=== PATIENT | male | born 1970 | race Caucasian/White ===

== ENCOUNTER 2018-09-07 20:49 | Inpatient (IN) ==
[2018-09-07 22:33] LABS: BASO# 0.06 X1000 (0.0-0.2); BASO% 0.6 % (0.0-0.8); EOS# 0.14 X1000 (0.0-0.7); EOS% 1.5 % (0.0-10.0); HEMOGLOBIN 12.7 g/dL (14.0-18.0); IMM GRAN# 0.04 X1000 (0.0-0.04); IMM GRAN% 0.4 % (0.0-0.5); LYMPH# 1.41 X1000 (1.2-3.4); LYMPH% 14.7 % (20.5-51.1); MCH 34.2 PG (27-31); MCHC 35.3 g/dL (33-37); MONO# 1.35 X1000 (0.11-0.59); MPV 12.2 FL (7.4-10.4); NEUT# 6.61 X1000 (1.4-6.5); NEUT% 68.8 % (42.2-75.2); PLT 128 X1000 (130-400); RBC 3.71 XMIL (4.7-6.1); RDW 15.5 % (11.5-14.5); WBC 9.61 X1000 (4.8-10.8)
[2018-09-07] MEDS ORDERED: ZOFRAN IV ONE (22:45)
[2018-09-07] MEDS ORDERED: MORPHINE IV ONE (22:45)
[2018-09-07 22:51] LABS: AGAP 12; ALKALINE PHOSPHATASE 119 U/L (32-122); BUN 15 mg/dL (8-22); CALCIUM 8.3 mg/dL (8.8-10.2); CHLORIDE 99 mmol/L (98-107); COSMO 266; CREATININE 0.8 mg/dL (0.7-1.2); ESTIMATED GFR > 60; GLUCOSE 85 mg/dL (70-104); GOT 47 U/L (10-34); GPT 40 U/L (10-44); LIPASE 23 U/L (13-60); POTASSIUM 4.3 mmol/L (3.5-5.1); SODIUM 133 mmol/L (136-145); TCO2 22 mmol/L (25-35); TOTAL PROTEIN 6.8 g/dL (6.3-8.3)
--- NOTE | 2018-09-08 00:16 | PROVIDER DOCUMENTATION ---
This chart was entered by Eunice Arias Scribe, acting as scribe for Clinton Mccann MD. HPI-Abdominal Pain/GI Problem - General Chief Complaint: Abdominal Pain Stated Complaint: PAIN/SWELLING (R) ABDOMEN Time Seen by Provider: 09/07/18 22:27 Source: patient, family Allergies/Adverse Reactions: Patient Allergies Allergy/AdvReac Type Severity Reaction Status Date / Time No Known Allergies Allergy Verified 09/07/18 21:34 Home Medications: Home Medication List Medication Instructions Recorded Confirmed Last Taken Type Spironolactone 50 mg PO BID 09/07/18 09/07/18 Unknown History - History of Present Illness-ABD Nature of Presenting Problems: 48 yowm presents w/family to er w/cc abd pain mostly right sided, distention, nausea, urinary retention, poor appetite, and constipation x 2 days. pt sts pain 12/06. pt was tx at [facility] for similar symptoms, given rx spironolactone w/no relief. pt sts [place] [facility] [place] kidney [place] and family sts found out he was in liver failure w/no notification. pt has CT done on 09-05 at [facility] and was told he had liver failure. pt and family denies alcohol use. denies chf, and dm. has hx of hepatitis that is supposed to be kike red up, was tx in shelter, acc to pt. pt has no allergies. pt is a smoker. family sts when pt is able to urinate it is darker in color but sts no urination since . Abdominal Pain Onset Location: reports: RUQ Onset/Duration: reports: 2 days ago Timing: reports: still present Review of Systems - Adult - REVIEW OF SYSTEMS - ADULT Constitutional: reports: no symptoms reported Eyes: reports: no symptoms reported Ears, Nose, Mouth & Throat: reports: no symptoms reported Cardiovascular: reports: no symptoms reported Respiratory: reports: no symptoms reported Gastrointestinal: reports: see HPI, abdominal pain (ruq, distention), constipation, nausea, poor appetite. denies: hematemesis, difficulty swallow ing, rectal bleeding Genitourinary: reports: see HPI, urinary retention. denies: dysuria, discharge, frequency Musculoskeletal: reports: no symptoms reported Integumentary: reports: no symptoms reported Neurological: reports: no symptoms reported Psychiatric: reports: no symptoms reported Endocrine: reports: no symptoms reported Hematologic/Lymphatic: reports: no symptoms reported Allergic/Immunologic: reports: no symptoms reported All Other Systems: Reviewed and Negative Past History - Adult - PAST MEDICAL HISTORY-ADULT Review of Records: reports: Old Records Reviewed (FULL RECORD OF [facility] VISIT, LAB, CT FINDINGS PER DR ARAGON OF SEPTEMBER 05, 2018 REVIEWED.), Nursing Assessment Review, Medications Reviewed, Social history reviewed & non- contributory. Major Childhood Illnesses: reports: denies history Cardiovascular: reports: HTN Respiratory: reports: denies history Gastrointestinal: reports: hepatitis, other (cirrosis) Obstetrical/Gynecological: reports: denies history Genitourinary: reports: denies history Musculoskeletal: reports: denies history Neurological: reports: denies history Endocrine/Immune: reports: denies history Other Conditions: reports: denies history - IMMUNIZATION STATUS Childhood Immunizations: See Nurse Assessment Flu Vaccine: See Nurse Assessment - FAMILY HISTORY Family History: reviewed, not pertinent - SOCIAL HISTORY Smoking: cigarettes, greater than 1 pack/day Provider spent 3-5 mins advising pt. on dangers of tobacco.: Discussed manners t o quit use, and f/u contacts for add'l counseling. Substance Use: denies Physical Exam-General - PHYSICAL EXAM-ADULT Initial Vital Signs Reviewed: Yes - CONSTITUTIONAL General Appearance: alert, mild distress. negative: slow to respond, obtunded, combative - EYES Eyes: PERRL/EOMI, scleral icterus (minimal bilat). negative: EOM palsy, photophobia, subconjunctival hemorrhage - HEAD, EARS, NOSE, MOUTH & THROAT HENMT: normocephalic/atraumatic, moist mucous membranes, normal ENT inspection - NECK Neck: non-tender, full range of motion, supple, normal inspection - RESPIRATORY Respiratory: chest non-tender, lungs clear, normal breath sounds - CARDIOVASCULAR Cardiovascular: normal peripheral pulses, tachycardia (mild). negative: regular rate, rhythm, bradycardia, extra beats - GASTROINTESTINAL (ABDOMEN) Abdominal Exam: normal bowel sounds, no organomegaly, distended (minimal distention no guarding), tenderness (moderate rt sided abd to palp, not localized). negative: non tender, soft, guarding - LYMPHATIC Lymphatic: no adenopathy - MUSCULOSKELETAL Back Exam: normal inspection, no CVA tenderness, no vertebral tenderness Extremity: normal range of motion, non-tender, normal inspection Peripheral Pulses: radial (R): 2+, radial (L): 2+ - SKIN Integumentary: normal color, normal turgor, warm/dry - NEUROLOGIC Neurologic: grossly normal, no motor/sensory deficits - PSYCHIATRIC Psych/Mental Status: normal mood/affect, normal thought content, normal thought process, oriented x 3 Progress - PLAN OF CARE/RESULTS Progress/Plan/Lab Results: Vital Signs - 8 hr 09/07/18 21:29 Temperature 98.4 F Pulse Rate 92 H Respiratory Rate 20 Blood Pressure 125/84 O2 Sat by Pulse Oximetry 100 Laboratory Results - last 24 hr 09/07/18 22:17 WBC 9.61 RBC 3.71 L Hgb 12.7 L Hct 36.0 L MCV 97.0 MCH 34.2 H MCHC 35.3 RDW Std Deviation 15.5 H Plt Count 128 L MPV 12.2 H Immature Gran % (Auto) 0.4 Neut % (Auto) 68.8 Lymph % (Auto) 14.7 L Duval % (Auto) 14.0 H Eos % (Auto) 1.5 Baso % (Auto) 0.6 Immature Gran # (Auto) 0.04 Neut # (Auto) 6.61 H Lymph # (Auto) 1.41 Duval # (Auto) 1.35 H Eos # (Auto) 0.14 Baso # (Auto) 0.06 Orders Category Date Time Status Saline Loc NOW Care 09/07/18 21:41 Active NPO Diet 09/07/18 21:42 Active FLAT/UPRIGHT ABD/1 VIEW CHEST [RAD] Stat Exams 09/07/18 21:40 Ordered AMYLASE [CHEM] Stat Lab 09/07/18 22:17 Received CBC WITH DIFF [HEME] Stat Lab 09/07/18 22:17 Completed COMPREHENSIVE METABOLIC PANEL [CHEM] Stat Lab 09/07/18 22:37 Received LIPASE [CHEM] Stat Lab 09/07/18 22:[address] W/POSS RFLX CULT [URINALYSIS] Stat Lab 09/07/18 21:40 Uncollected URINE DRUG SCREEN PL Stat Lab 09/07/18 21:40 Uncollected Result Diagrams: 09/07/18 22:17 09/07/18 22:37 - CONSULTS/PCP/HOSPITALIST Notification #1 *Consult/PCP/Hospitalist*: Dr. partida Time Discussed: 23:40 Consult Disposition: Admit #2 Consult: Dr. braun Time Discussed: 23:30 Consult Disposition: Admit Departure - Departure Date of Disposition Decision: 09/08/18 Time of Disposition Decision: 00:12 DIAGNOSIS: Abdominal pain, Ascites, Cirrhosis of liver, Methamphetamine abuse Disposition: ADMITTED INPATIENT 09 Certified Medical Emergency: Emergent Condition: Stable Referrals and Follow-Ups: None,PCP [Primary Care Provider] - - Critical Care Note This patient required my direct & personal management of CC.: No Attestation - Physician/ DIANA Attestation Patient care was provided by Advanced Practice Provider:: No The physician spent face to face time with patient:: Yes Advanced Practice Provider documentation review:: Supervising physician onsite and consulted in the evaluation and care of this patient. The physician did have a face to face encounter with the patient. This chart was documented by the indicated scribe, (Eunice Arias Scribe) and accurately reflects the services I performed and decisions made by me, Clinton Mccann MD, as attested by the provider's signature.
[2018-09-08 01:27] LABS: BILIRUBIN URINE NEGATIVE (NEGATIVE); BLOOD URINE NEGATIVE (NEGATIVE); CLARITY CLEAR (CLEAR); COLOR AMBER; GLUCOSE URINE NEGATIVE (NEGATIVE); KETONE URINE TRACE mg/dL (NEGATIVE); LEUKOCYTES URINE TRACE (NEGATIVE); NITRITE URINE NEGATIVE (NEGATIVE); PROTEIN URINE TRACE mg/dL (NEGATIVE); UR AMPHETAMINES QUAL PRESUMPTIVE POSITIVE (NONE DETECT); UR BARBITUATES QUAL NONE DETECTED (NONE DETECT); UR BENZODIAZEPIN QUAL NONE DETECTED (NONE DETECT); UR CANNABINOIDS QUAL PRESUMPTIVE POSITIVE (NONE DETECT); UR COCAINE QUAL NONE DETECTED (NONE DETECT); UR METHADONE QUAL NONE DETECTED (NONE DETECT); UR METHAMPHETAMINE QUAL PRESUMPTIVE POSITIVE (NONE DETECT); UR OPIATES QUAL PRESUMPTIVE POSITIVE (NONE DETECT); UR OXYCODONE QUAL NONE DETECTED (NONE DETECT); UR PCP QUAL NONE DETECTED (NONE DETECT); UR PROPOXYPHENE QUAL NONE DETECTED (NONE DETECT); UR TCA QUAL NONE DETECTED (NONE DETECT); URINE BACTERIA NEGATIVE /HFP; URINE EPITHELIAL CELLS <10 /HPF (<10); URINE RBC <10 /HPF (<10); URINE SOURCE CLEAN CATCH; URINE WBC <10 /HPF (<10); UROBILINOGEN URINE 8 mg/dL
[2018-09-08] MEDS ORDERED: NS 1,000 ML IV ONE (02:50)
[2018-09-08] MEDS: ZOFRAN IV PRN ×4 (03:16→16:06)
[2018-09-08] MEDS: MORPHINE IV PRN ×6 (03:16→22:44)
[2018-09-08 08:09] LABS: BASO# 0.06 X1000 (0.0-0.2); BASO% 0.8 % (0.0-0.8); EOS# 0.16 X1000 (0.0-0.7); EOS% 2.1 % (0.0-10.0); HEMATOCRIT 37.4 % (42.0-52.0); HEMOGLOBIN 13.2 g/dL (14.0-18.0); IMM GRAN# 0.05 X1000 (0.0-0.04); IMM GRAN% 0.6 % (0.0-0.5); LYMPH# 1.57 X1000 (1.2-3.4); LYMPH% 20.2 % (20.5-51.1); MCH 34.6 PG (27-31); MCHC 35.3 g/dL (33-37); MCV 97.9 FL (81-99); MONO# 1.11 X1000 (0.11-0.59); MONO% 14.3 % (1.7-9.3); MPV 11.6 FL (7.4-10.4); NEUT# 4.83 X1000 (1.4-6.5); PLT 110 X1000 (130-400); RBC 3.82 XMIL (4.7-6.1); RDW 15.8 % (11.5-14.5); WBC 7.78 X1000 (4.8-10.8)
[2018-09-08 08:32] LABS: INR 1.4; PROTIME 18.2 Seconds (11.0-16.0)
[2018-09-08 08:33] LABS: PTT 38.6 Seconds (22.3-41.8)
[2018-09-08 08:43] LABS: AGAP 8; ALB/GLOB RATIO 0.7; ALBUMIN 2.9 g/dL (3.5-5.0); ALKALINE PHOSPHATASE 122 U/L (32-122); BUN 17 mg/dL (8-22); CALCIUM 8.5 mg/dL (8.8-10.2); CHLORIDE 100 mmol/L (98-107); COSMO 269; CREATININE 1.1 mg/dL (0.7-1.2); ESTIMATED GFR > 60; GLUCOSE 122 mg/dL (70-104); GOT 42 U/L (10-34); GPT 39 U/L (10-44); POTASSIUM 4.4 mmol/L (3.5-5.1); SODIUM 133 mmol/L (136-145); TCO2 25 mmol/L (25-35); TOTAL BILIRUBIN 2.41 mg/dL (0.20-1.00)
--- NOTE | 2018-09-08 09:11 | Diag Imaging Result Doc PS360 ---
EXAM: FLAT/UPRIGHT ABD/1 VIEW CHEST INDICATION: abd pain TECHNIQUE: 3 views COMPARISON: None. FINDINGS: There are several air-fluid levels in the colon suggesting a possible diarrheal illness. There is no definite bowel obstruction. There is no evidence of large volume free abdominal gas. There is no evidence of organomegaly. There is minimal linear scarring versus subsegmental atelectasis at the lung bases. The lungs are grossly clear, otherwise. There is no discrete pleural fluid collection or pneumothorax. The cardiomediastinal silhouette and central vasculature are grossly unremarkable. IMPRESSION: Liquid stool in the colon suggesting possible diarrheal illness. Electronically signed by Puneet Arias 09/08/2018 9:09 AM
--- NOTE | 2018-09-08 11:10 | Diag Imaging Result Doc PS360 ---
EXAM: US ABDOMEN-COMPLETE INDICATION: Abd. Pain/Distention,Ascites,Elevated LFTs COMPARISON: None. FINDINGS: The gallbladder is distended. No shadowing gallbladder stones and no gallbladder wall thickening is appreciated. The common bile duct is normal in diameter. Sonographic Rivers's sign was reported to be negative. There is ascites tracking around the liver and, to a lesser degree, around the spleen. The liver exhibits a nodular contour consistent with cirrhosis. No discrete liver mass can be identified. Portal venous flow is hepatopetal. The pancreas is obscured by gas. The visualized portions of the aorta and IVC are unremarkable. The spleen is enlarged measuring up to 7.3 cm in length. The kidneys are grossly unremarkable. IMPRESSION: 1.Ascites. 2.Cirrhotic liver. 3.Splenomegaly. Electronically signed by Puneet Arias 09/08/2018 11:08 AM
[2018-09-08] MEDS ORDERED: MORPHINE IV ONE (19:52)
[2018-09-09] MEDS: MORPHINE IV PRN ×7 (00:52→20:21)
[2018-09-09 09:29] LABS: BASO# 0.15 X1000 (0.0-0.2); BASO% 1.6 % (0.0-0.8); EOS# 0.05 X1000 (0.0-0.7); EOS% 0.5 % (0.0-10.0); HEMATOCRIT 38.6 % (42.0-52.0); HEMOGLOBIN 13.4 g/dL (14.0-18.0); IMM GRAN# 0.06 X1000 (0.0-0.04); IMM GRAN% 0.6 % (0.0-0.5); LYMPH# 1.14 X1000 (1.2-3.4); LYMPH% 12.2 % (20.5-51.1); MCH 35.3 PG (27-31); MCHC 34.7 g/dL (33-37); MCV 101.6 FL (81-99); MONO# 0.92 X1000 (0.11-0.59); MONO% 9.8 % (1.7-9.3); MPV 11.4 FL (7.4-10.4); NEUT# 7.04 X1000 (1.4-6.5); NEUT% 75.3 % (42.2-75.2); PLT 126 X1000 (130-400); RDW 15.8 % (11.5-14.5); WBC 9.36 X1000 (4.8-10.8)
[2018-09-09 09:49] LABS: AGAP 14; ALB/GLOB RATIO 0.8; ALBUMIN 3.2 g/dL (3.5-5.0); ALKALINE PHOSPHATASE 122 U/L (32-122); BUN 18 mg/dL (8-22); CALCIUM 8.8 mg/dL (8.8-10.2); CHLORIDE 101 mmol/L (98-107); COSMO 276; CREATININE 0.9 mg/dL (0.7-1.2); ESTIMATED GFR > 60; GLUCOSE 98 mg/dL (70-104); GOT 44 U/L (10-34); GPT 41 U/L (10-44); POTASSIUM 4.7 mmol/L (3.5-5.1); SODIUM 137 mmol/L (136-145); TCO2 22 mmol/L (25-35); TOTAL BILIRUBIN 3.69 mg/dL (0.20-1.00); TOTAL PROTEIN 7.2 g/dL (6.3-8.3)
[2018-09-09 10:05] LABS: INR 1.32; PROTIME 17.4 Seconds (11.0-16.0)
--- NOTE | 2018-09-09 10:19 | HISTORY AND PHYSICAL ---
CHIEF COMPLAINT: Abdominal pain. HISTORY OF PRESENT ILLNESS: Mr. Bolden is a 48-year-old male who presented to the ER with abdominal pain which he reports is in his right upper, right lower, right flank and radiates around to his right lower back. He also reports nausea though denies any vomiting. He also reported that he had had some recent constipation though states that he has had a recent bowel movement. He denied any hemostasis or melena. The patient denies any fever, body aches, or chills. He has reported that due to his nausea and abdominal pain, he has had poor oral intake and had been having some decreased urine output though he denied any dysuria. He denies any headache, dizziness, chest pain, shortness of breath or cough. He denies any pain, numbness, tingling, or swelling in extremities. The patient did report that his abdominal pain started approximately 3 or 4 days ago. It has been constant though does become worse at times. He reports the pain is sharp in nature. He states that he was seen a few days ago at [facility] and was told that he had liver failure and cirrhosis. The patient has also stated that he reportedly has been told he has hepatitis as well. He stated at [facility] a few days ago, they did perform a CT of his abdomen. We have asked the patient if he wants to give consent for us to obtain his records, he states this is okay. We will place this request. The patient denies any alcohol or illicit drug use. He denies any previous heavy alcohol abuse. He stated he only drank occasionally though he is a long-time smoker. The patient also does have a history of approximately being incarcerated for 10 years. He states that he does have tattoos that were obtained in care home though he denied sharing any sharp objects or utensils for these tattoos. He also denied any previous history of IV drug abuse. Upon evaluation in the ER at [place], laboratory results did reveal that he has some elevated liver function tests with a bilirubin of 2.8, AST was 47, though ALT and alkaline phosphatase were within normal limits. The patient does have jaundice noted to his sclera of bilateral eyes. His abdomen is distended, is slightly firm. Abdomen flat and upright with one-view chest did show what appears to be a few possible air fluid levels though we are awaiting official radiology over read. The patient has been transferred to [facility] for inpatient admission. REVIEW OF SYSTEMS: A 14 point review of systems was conducted with the patient. All were negative except for pertinent positives mentioned in above HPI. PAST MEDICAL HISTORY: 1. Hypertension. 2. Reported history of hepatitis. 3. Reported history of being informed that he has liver failure and cirrhosis. 4. History of kidney stones. 5. History of having a broken sternum though he did not require surgical intervention. PAST SURGICAL HISTORY: The patient denies any surgical history. SOCIAL HISTORY: The patient reports that he is a current half a pack per day smoker. He denies any current alcohol or illicit drug use. He denied any previous IV drug use. The patient denied any previous alcohol abuse. He stated that he only drank occasionally though he does have a history of being incarcerated for approximately 10 years. The patient reports that he did receive tattoos while he was incarcerated though he denied sharing any sharp objects or needles to obtain his tattoos or for any other reason while he was incarcerated. He also reports that unfortunately his mother and father both while he was imprisoned. FAMILY HISTORY: Positive for his mother and father both passing away secondary to unknown cancers. ALLERGIES: Patient has no known allergies. HOME MEDICATIONS: The patient reports that he had just recently received a new prescription for spironolactone 50 mg to be taken twice daily. This was given to him by the ER physician at [facility]. DIAGNOSTIC DATA: White blood cell count is 9610, hemoglobin 12.7, hematocrit 36, platelet count is 128,000. PT 18.2, INR 1.4, PTT is 38.6. Sodium 133, potassium 4.3, chloride 99, serum bicarb was 22, BUN 15, creatinine 0.8 with a GFR greater than 60. Glucose 85, calcium 8.3, total bilirubin is 2.8, AST 47, ALT 40, alkaline phosphatase is 119, amylase 33, lipase 23. Urinalysis was obtained via clean catch, was positive for trace protein and trace white blood cells. It was negative for ketones, blood, nitrites or bacteria. Urine drug screen was positive for opiates, amphetamines, methamphetamines, and cannabinoids. Flat and upright abdomen with 1 view chest did appear to have a few air fluid levels though we are awaiting official radiology over read. Pending study at this time is abdominal ultrasound. PHYSICAL EXAMINATION: VITAL SIGNS: Temperature 97.7 degrees, heart rate 86, respirations 18, blood pressure 123/96, oxygen saturation is 100% on room air. GENERAL: Mr. Bolden is a pleasant 48-year-old male who is resting on the inpatient bed. He was in no acute distress. He was awake, alert and able to answer questions appropriately. HEENT: Head is atraumatic, normocephalic. Pupils are equal, round, reactive to light, were 3 mm bilaterally and brisk. The patient did have jaundice noted to the sclera of bilateral eyes. Oral mucosa is moist. Oropharynx is clear. NECK: Supple. Trachea midline. CARDIOVASCULAR: Patient has S1-S2 present. No murmurs, gallops, rubs appreciated with a regular rate and rhythm. PULMONARY: Patient has symmetrical chest expansion bilaterally. Lung sounds were clear to auscultation in bilateral full cummins. ABDOMEN: Slightly firm, is distended. The patient does report tenderness in right upper and lower quadrants, right flank and into his right lower back. There was no CVA tenderness noted. Bowel sounds were present in all 4 quadrants, were normoactive. EXTREMITIES: No cyanosis or edema noted. Pulse, motor, and sensory were intact in all extremities. Radial pulses and pedal pulses were 3+ bilaterally. INTEGUMENTARY: The patient's skin is dry and intact. There does appear to be some slight jaundicing noted. NEUROLOGICAL: Patient is alert and oriented to person, place, time, and situation. He is able to move all extremities. There are no focal neurological deficits noted. ASSESSMENT AND PLAN: 1. Abdominal pain. We suspect this is likely secondary to the patient's liver dysfunction and his ascites. We are awaiting an abdominal ultrasound to be performed. We will continue with p.r.n. pain medicine and nausea medicine as needed. We have placed a consult with gastroenterology. We will await their evaluation and further recommendations for management. 2. Ascites. We are awaiting an abdominal ultrasound at this time. The patient may likely need paracentesis performed. We will continue with interventions as mentioned above in #1. Will await these results and continue to follow. 3. Transaminitis. We have ordered further diagnostic studies as mentioned above in #1 and #2. We have also ordered a hepatitis profile as well. We will continue to monitor this closely. We are awaiting Gastroenterology evaluation and recommendations. 4. Nicotine dependence. We have placed an order for the patient to receive a nicotine patch. We will continue to student counsellor the patient on the importance of smoking cessation throughout his admission and upon discharge. The patient has been placed on the medical floor with telemetry. He will have vital signs q.6 hours. We will do strict intake and output, incentive spirometry. He will be on a clear liquid diet. We will repeat a CBC and CMP this morning. We have requested for the patient's medical records as well as his CT result from [facility] a few days ago to be obtained and placed on the chart for viewing. Further orders and recommendations pending hospital course, diagnostic studies, and physician evaluation. Dictated by SAM Acosta for Darren Kevin MD cc: Darren Kevin MD
[2018-09-09] MEDS: NICODERM PATCH TD SCH (11:59)
[2018-09-09 12:28] LABS: HEPATITIS PROFILE ACUTE SEE COMMENTS
--- NOTE | 2018-09-09 13:49 | PROGRESS NOTE ---
DATE: 09/09/2018 SUBJECTIVE: The patient reports that abdominal pain is getting better. Denies any fever or chills. OBJECTIVE: Vital Signs: Temperature 97.8 degrees, heart rate 97, respiratory rate 14, blood pressure 147/106, O2 saturation 98% on room air. General: This is a chronically ill-appearing, 48-year-old, male, lying in bed in no acute distress. Cardiovascular: S1, S2 heard. No murmurs, gallops, or rubs. Regular rate and rhythm. Respiratory: Clear bilaterally to auscultation. No work of breathing or using accessory muscles. Abdomen: Distended with ascites present. Right upper quadrant tenderness that is mild. No signs of peritoneal irritation. Extremities: No clubbing, cyanosis, or edema. Peripheral pulses present in both legs. Neurological: The patient is alert and oriented x3. Moves 4 extremities. LABORATORY DATA: White cell count 9.36, hemoglobin 13.2, hematocrit 38.6, platelets 126,000. BMP is okay. Total bilirubin is getting higher at 3.69, with normal ALT and slightly elevated AST. Normal alkaline phosphatase. UDS positive for amphetamines, methamphetamines, and cannabinoids. ASSESSMENT AND PLAN: 1. Abdominal pain. Currently, this patient may have spontaneous bacterial peritonitis. In any case, there are no signs of peritoneal irritation. What we are going to do is to perform ultrasound-guided paracentesis, and send ascitic fluid for rule out any spontaneous bacterial peritonitis. Now, the patient is feeling better. Gastroenterology has been consulted. Will follow recommendations. 2. Liver cirrhosis with ascites. The patient does have history of hepatitis, but he does not remember the type, and he apparently received treatment for a year. In any case, will continue to monitor this patient closely. 3. Nicotine dependence. The patient is supposed to receive nicotine patch. 4. Disposition. Will monitor this patient closely. cc: Clemente Rucekr MD
[2018-09-09] MEDS ORDERED: SODIUM CHLORIDE 0.9% INJ PRN (15:39)
[2018-09-09] MEDS: PHENERGAN IV PRN ×2 (16:29→23:05)
[2018-09-09 17:51] LABS: HIV ANTIBODY SCREEN SEE COMMENTS
[2018-09-10] MEDS: MORPHINE IV PRN ×3 (00:24→04:34)
[2018-09-10] MEDS: MORPHINE IV ONE ×2 (05:03→05:27)
[2018-09-10] MEDS ORDERED: MORPHINE IV ONE (05:43)
[2018-09-10 07:46] LABS: BASO# 0.05 X1000 (0.0-0.2); BASO% 0.5 % (0.0-0.8); EOS# 0.09 X1000 (0.0-0.7); EOS% 0.9 % (0.0-10.0); HEMATOCRIT 35.2 % (42.0-52.0); HEMOGLOBIN 12.1 g/dL (14.0-18.0); IMM GRAN# 0.06 X1000 (0.0-0.04); IMM GRAN% 0.6 % (0.0-0.5); LYMPH# 1.08 X1000 (1.2-3.4); LYMPH% 10.8 % (20.5-51.1); MCH 33.4 PG (27-31); MCHC 34.4 g/dL (33-37); MCV 97.2 FL (81-99); MONO# 0.96 X1000 (0.11-0.59); MONO% 9.6 % (1.7-9.3); MPV 11.1 FL (7.4-10.4); NEUT# 7.73 X1000 (1.4-6.5); NEUT% 77.6 % (42.2-75.2); PLT 116 X1000 (130-400); RBC 3.62 XMIL (4.7-6.1); RDW 15.5 % (11.5-14.5); WBC 9.97 X1000 (4.8-10.8)
[2018-09-10 07:55] LABS: INR 1.41; PROTIME 18.3 Seconds (11.0-16.0)
[2018-09-10 08:01] LABS: AGAP 10; ALB/GLOB RATIO 0.8; ALKALINE PHOSPHATASE 114 U/L (32-122); BUN 18 mg/dL (8-22); CALCIUM 7.8 mg/dL (8.8-10.2); CHLORIDE 102 mmol/L (98-107); COSMO 275; ESTIMATED GFR > 60; GLUCOSE 111 mg/dL (70-104); GOT 43 U/L (10-34); GPT 36 U/L (10-44); SODIUM 136 mmol/L (136-145); TCO2 24 mmol/L (25-35); TOTAL BILIRUBIN 2.63 mg/dL (0.20-1.00)
--- NOTE | 2018-09-10 09:07 | Diag Imaging Result Doc PS360 ---
EXAM: US ABD PARACENTESIS W S/I 09/10/2018 HISTORY: ascitis TECHNIQUE: Ultrasound-guided paracentesis COMMENT: The risks and benefits of the procedure including the possibility of bleeding, infection, reaction to lidocaine, or inadvertent puncture of hollow viscus was discussed with the patient and he agreed to the procedure. Following sterile preparation of the skin laterally in the right upper abdomen and administration 1% lidocaine to the skin and deeper soft tissues, the paracentesis catheter was placed and intermittent drainage of clear yellow ascites was established. Only 400 mL of fluid could be drained before drainage was very intermittent, despite manipulation of the catheter and changing the position of the patient. The patient also was unusually sensitive to movement of the catheter, and experienced an unusual degree of discomfort with placement and manipulation of the catheter. IMPRESSION: Only 400 mL of fluid was removed. Due to the discomfort of the patient, the procedure was discontinued. Electronically signed by David Rincon 09/10/2018 9:05 AM
[2018-09-10] MEDS: NICODERM PATCH TD SCH (09:17)
[2018-09-10] MEDS: SODIUM CHLORIDE 0.9% INJ SCH (09:17)
[2018-09-10] MEDS: NEXIUM IV SCH ×2 (09:17→14:24)
--- NOTE | 2018-09-10 14:05 | PROGRESS NOTE ---
DATE: 09/10/2018 SUBJECTIVE: Today patient is a little bit sleepy. He apparently went to have his paracentesis but because he was feeling very uncomfortable the procedure was not possible to be completed and they removed just only 400 mL of ascitic fluid. OBJECTIVE: Vital Signs: Temperature 97.8 degrees, heart rate 75, respiratory rate 26, blood pressure 162/85, O2 saturation 99% on room air. General: This is a chronically ill-appearing 48-year-old male lying in bed in no acute distress. Cardiovascular: S1, S2 heard. No murmurs, gallops, or rubs. Regular rate and rhythm. Respiratory: Clear bilaterally to auscultation. No work of breathing or using accessory muscles. Abdomen: A little bit distended less in compared with yesterday, right upper quadrant tenderness noted that is mild, no signs of peritoneal irritation. Extremities: No clubbing, cyanosis, or edema. Peripheral pulses present in both legs. Neurologic: Patient is alert and oriented x3. Moves 4 extremities. LABORATORY DATA: White cell count 9.97, hemoglobin 12.1, hematocrit 35.2, platelets 116,000. Normal BMP except total bilirubin 2.63 and AST 43. ASSESSMENT/PLAN: 1. Abdominal pain. 2. Liver cirrhosis with ascites. 3. Hepatitis. 4. Nicotine dependence. 5. Polysubstance abuse. PLAN: At this point patient continues to have abdominal pain. We were suspecting spontaneous bacterial peritonitis so paracentesis was performed today. Unfortunately because patient was feeling uncomfortable was not possible to complete it properly. The description for the fluid was clear yellow ascites and also he does not know exactly what type hepatitis he has. GI has order some more tests like Hep B and also viral load hepatitis B as well, will follow recommendations. At this time will see what those exam shows, will go from there. cc: MD MARISOL Moon
--- NOTE | 2018-09-10 17:05 | GASTROENTEROLOGY PROGRESS NOTE ---
DATE: 09/10/2018 SUBJECTIVE: Patient is resting in bed. He just came from paracentesis. He had 400 mL of fluid drained. We ordered the fluid studies. The patient complains of discomfort in the abdomen. He denies any nausea or vomiting. He denies any fevers, rigors, chills. He denies any vomiting blood. OBJECTIVE: Vital signs: Temperature 97.8 degrees, pulse rate 123, respiratory rate 26, blood pressure 162/126, saturating 98% on room air. Body weight of 170 pounds, BMI 24.4 kg/m2. General: Moderate built, moderately nourished, lying in bed, in no acute distress. HEENT: No pallor. Mild icterus. Neck: Supple. Abdomen: Protuberant. Positive ascites. Discomfort in the periumbilical region. No rebound or guarding. Extremities: No cyanosis, clubbing. Neurologic: Alert, awake, oriented x3. LABS: Hemoglobin and hematocrit are 12.1 and 35.2, white count of 9.97, platelet count of 116,000. INR 1.4, PTT of 18.3. Sodium 136, potassium 4, chloride 102, bicarb 24, anion gap 10, BUN of 18, creatinine 1, glucose 111, calcium was 7.8. Total bilirubin is 2.63, AST 43, ALT 36, alkaline phosphatase 114, total protein 7, albumin of 3. Urine drug screen positive for opioids, amphetamines, methamphetamines, and cannabinoids. Urinalysis positive for trace protein and trace white cells. Hepatitis panel is positive for hepatitis B surface antigen and hepatitis C antibody. PCR has been ordered. HIV 1 and 2 are nonreactive. Urine culture showed no growth. Ultrasound was done which showed 400 mL of fluid which was removed. The catheter was removed because of intermittent drainage and discomfort per the patient. Ultrasound of the abdomen also showed ascites, cirrhotic liver, and splenomegaly. IMPRESSION AND PLAN: 1. Abdominal pain. Will rule out spontaneous bacterial peritonitis. We will follow up on the ascitic fluid studies. 2. Liver cirrhosis with ascites. We will follow up on the HCV PCR. Will also order hepatitis B DNA PCR. The patient is at high risk of liver failure and liver malignancy as he has hepatitis C and likely hepatitis B in combination. Will check AFP. 3. Nicotine dependence. Patient counseled to quit smoking. 4. Elevated liver enzymes, likely secondary to chronic hepatitis. 5. Abdominal pain. Will continue on Nexium once daily. He is on IV morphine every 2 hours for pain control. We will start him on a clear liquid diet today. We will check AFP levels. We will schedule him for EGD tomorrow with Dr. Quintero. He will be NPO after midnight. The above plan was discussed with the patient and all questions answered. Please call us with any further questions. cc: MD Clemente Castillo MD MTDD
[2018-09-10] MEDS: MORPHINE IM PRN ×3 (17:06→23:27)
[2018-09-11] MEDS: MORPHINE IM PRN ×6 (02:36→23:02)
[2018-09-11 08:12] LABS: BASO# 0.04 X1000 (0.0-0.2); BASO% 0.5 % (0.0-0.8); EOS# 0.13 X1000 (0.0-0.7); EOS% 1.7 % (0.0-10.0); HEMATOCRIT 31.8 % (42.0-52.0); HEMOGLOBIN 11.1 g/dL (14.0-18.0); IMM GRAN# 0.03 X1000 (0.0-0.04); IMM GRAN% 0.4 % (0.0-0.5); LYMPH# 1.36 X1000 (1.2-3.4); LYMPH% 18.1 % (20.5-51.1); MCHC 34.9 g/dL (33-37); MCV 97.5 FL (81-99); MONO# 0.83 X1000 (0.11-0.59); MPV 11.3 FL (7.4-10.4); NEUT# 5.13 X1000 (1.4-6.5); NEUT% 68.3 % (42.2-75.2); PLT 109 X1000 (130-400); RBC 3.26 XMIL (4.7-6.1); RDW 15.4 % (11.5-14.5); WBC 7.52 X1000 (4.8-10.8)
[2018-09-11 08:17] LABS: INR 1.54; PROTIME 19.7 Seconds (11.0-16.0)
[2018-09-11] MEDS: NEXIUM IV SCH ×2 (08:32→11:18)
[2018-09-11] MEDS: NICODERM PATCH TD SCH (08:33)
[2018-09-11] MEDS ORDERED: XYLOCAINE-MPF 2% ONE (08:51)
[2018-09-11] MEDS ORDERED: DIPRIVAN 1% ONE (08:52)
[2018-09-11 08:57] LABS: AGAP 8; ALB/GLOB RATIO 0.7; ALBUMIN 2.8 g/dL (3.5-5.0); ALKALINE PHOSPHATASE 105 U/L (32-122); BUN 14 mg/dL (8-22); CALCIUM 8.3 mg/dL (8.8-10.2); CHLORIDE 102 mmol/L (98-107); COSMO 278; CREATININE 0.8 mg/dL (0.7-1.2); ESTIMATED GFR > 60; GLUCOSE 125 mg/dL (70-104); GOT 46 U/L (10-34); GPT 35 U/L (10-44); POTASSIUM 3.4 mmol/L (3.5-5.1); SODIUM 138 mmol/L (136-145); TCO2 28 mmol/L (25-35); TOTAL BILIRUBIN 1.87 mg/dL (0.20-1.00); TOTAL PROTEIN 6.6 g/dL (6.3-8.3)
--- NOTE | 2018-09-11 10:03 | ENDOSCOPY OPERATIVE NOTE ---
[facility] ENDOSCOPY OPERATIVE NOTE , PATIENT: Zachary Bolden ADMISSION DATE: 09/11/2018 MR#: [id number] [facility] 1970 [id number] EGD PROCEDURE REPORT PROCEDURE DATE: 09/11/2018 SURGEON: Sonido Quintero MD STATUS: inpatient [employer]: PREOPERATIVE DIAGNOSIS: The patient is a 48 yr old male here for an EGD due to abdominal pain in upp er left quadrant and anemia. PROCEDURE PERFORMED: EGD w/ band ligation of varices MEDICATIONS: Per Anesthesia TOPICAL ANESTHETIC: CONSENT: The patient understands the risks and benefits of the procedure and understands that these r isks include, but are not limited to: sedation, allergic reaction, infection, perforation and/or bleeding. Alternative means of evaluation and treatment include, among others: physical exam, x-rays, and/or surgical intervention. The patient elects to proceed with this endoscopic procedure. HISORY AND PHYSICAL: 09/11/2018 function. Hand hygiene and appropriate measures for infection prevention was taken. After the risks, benefits and alternatives of the procedure were thoroughly explained, Informed consent was verified, confirmed and timeout was successfully executed by the treatment team. The patient was anesthetized with topical anesthesia and the [id number] ([id number]) endoscope was introduced through the mouth and advanced to the second portion of the duoden um. Retroflexion was performed in the stomach and revealed no abnormalities. The gastroscope was then slowly withdraw n and removed. ESOPHAGUS: There were 4 columns of large (grade 3-4) varices in the lower third of the esophagus. Th e varices were not bleeding. Bleeding prevention was attempted by placing five bands with incomplete eradication. STOMACH: Mild portal hypertensive gastropathy was found. A single non-bleeding, clean-based and sha llow ulcer ranging between 3-5 mm in size was found at the incisura. DUODENUM: The duodenum was normal. SPECIMENS REMOVED: No ADVERSE EVENTS: There were no complications. POSTOPERATIVE DIAGNOSIS: 1. There were 4 columns of large esophageal varices and varices in the lower third of the esophagus; Hemostasis was attempted by placing five band on the bleeding site(s) 2. Portal hypertensive gastropathy was found 3. Single ulcer ranging between 3-5 mm in size was found at the incisura 4. The duodenum was normal RECOMMENDATIONS: Cardiac diet PPI PO once daily Will follow with you REPEAT EXAM: Return in 2 weeks for EGD per banding protocol Sonido Quintero MD eSigned: Sonido Quintero MD 09/11/2018 10:02 AM cc: PATIENT NAME: Zachary Bolden MR#: [id number]
[2018-09-11 11:16] LABS: HCV BY PCR SEE COMMENTS
[2018-09-11] MEDS: CORGARD PO SCH (11:17)
[2018-09-11] MEDS: SODIUM CHLORIDE 0.9% INJ SCH (11:18)
--- NOTE | 2018-09-11 15:17 | PROGRESS NOTE ---
DATE: 09/11/2018 SUBJECTIVE: Patient is more awake today. Reports mild abdominal pain but definitely much better in comparing with yesterday. OBJECTIVE: Vital Signs: Temperature 98.4 degrees. heart rate 90 respiratory rate 16, blood pressure 147/101, O2 saturation 100% on room air. General: This is a chronically ill-looking 48- year-old male, lying in bed, in no acute distress. Cardiovascular: S1, S2 heard. No murmurs, gallops, or rubs. Regular rate and rhythm. Respiratory: Clear bilaterally to auscultation. No work of breathing or using accessory muscles. Abdomen: A little bit distended. Diffuse tenderness noted in all the abdomen no signs of peritoneal irritation. Extremities: No clubbing, cyanosis, or edema. Peripheral pulses present in both legs. Neurological: Patient is alert and oriented x3. Moves 4 extremities. LABORATORY DATA: Reviewed. ASSESSMENT AND PLAN: 1. Abdominal pain, liver cirrhosis with ascites, hepatitis B and C. 2. Nicotine dependence. 3. Polysubstance abuse. PLAN: The patient has been explained in depth about his diagnosis. He had hepatitis C that apparently is a chronic condition. He has been seen by any GI doctor before regarding this condition also. Also, we found out that he has an acute hepatitis B with surface hepatitis positive. He was explained the risk of having this new infection on top of what he already has. He reports not using any needles. He reports he is monogamous. At this point, we are waiting for results of vital for hepatitis B and C. In the endoscopies he was found to have esophageal varices that will need banding in 2 weeks for, now. He has been started nadolol. As we mentioned before, has been explained in depth all his medical conditions. He was recommended to stop abusing drugs, not using any Tylenol and stay away from cigarettes. Also. GI is following this patient. We will follow recommendations. cc: Clemente Rucker MD
[2018-09-12] MEDS: MORPHINE IM PRN ×5 (01:19→23:48)
[2018-09-12] MEDS ORDERED: MORPHINE IV ONE (02:48)
[2018-09-12] MEDS ORDERED: DULCOLAX PR ONE (02:49)
[2018-09-12 07:17] LABS: BASO# 0.06 X1000 (0.0-0.2); BASO% 0.5 % (0.0-0.8); EOS# 0.32 X1000 (0.0-0.7); EOS% 2.5 % (0.0-10.0); HEMATOCRIT 36.2 % (42.0-52.0); HEMOGLOBIN 12.6 g/dL (14.0-18.0); IMM GRAN# 0.06 X1000 (0.0-0.04); IMM GRAN% 0.5 % (0.0-0.5); LYMPH# 2.04 X1000 (1.2-3.4); LYMPH% 16.1 % (20.5-51.1); MCH 33.9 PG (27-31); MCHC 34.8 g/dL (33-37); MCV 97.3 FL (81-99); MONO# 1.44 X1000 (0.11-0.59); MONO% 11.4 % (1.7-9.3); MPV 11.2 FL (7.4-10.4); NEUT# 8.76 X1000 (1.4-6.5); PLT 159 X1000 (130-400); RBC 3.72 XMIL (4.7-6.1); RDW 15.9 % (11.5-14.5); WBC 12.68 X1000 (4.8-10.8)
[2018-09-12 07:20] LABS: INR 1.53; PROTIME 19.6 Seconds (11.0-16.0)
[2018-09-12 07:32] LABS: AGAP 8; ALB/GLOB RATIO 0.7; ALBUMIN 2.6 g/dL (3.5-5.0); ALKALINE PHOSPHATASE 104 U/L (32-122); BUN 12 mg/dL (8-22); CALCIUM 8.2 mg/dL (8.8-10.2); CHLORIDE 102 mmol/L (98-107); COSMO 274; CREATININE 0.8 mg/dL (0.7-1.2); ESTIMATED GFR > 60; GLUCOSE 109 mg/dL (70-104); GOT 40 U/L (10-34); GPT 33 U/L (10-44); POTASSIUM 3.8 mmol/L (3.5-5.1); SODIUM 137 mmol/L (136-145); TCO2 27 mmol/L (25-35); TOTAL BILIRUBIN 2.02 mg/dL (0.20-1.00); TOTAL PROTEIN 6.4 g/dL (6.3-8.3)
[2018-09-12] MEDS: CORGARD PO SCH (08:36)
[2018-09-12] MEDS: MIRALAX PO SCH (08:36)
[2018-09-12] MEDS: NICODERM PATCH TD SCH (08:36)
[2018-09-12] MEDS: NEXIUM IV SCH (08:50)
[2018-09-12] MEDS ORDERED: DEMEROL PO ONE (09:31)
--- NOTE | 2018-09-12 10:16 | Diag Imaging Result Doc PS360 ---
EXAM: CT ABDOMEN/PELVIS W/O CONTRAST INDICATION: ABD pain TECHNIQUE: This exam was performed using automated exposure control, adjustment of mA or kV according to patient size, and/or use of iterative reconstruction technique. COMPARISON: None. FINDINGS: There is a small right pleural effusion. There is subsegmental atelectasis at both lung bases. There is large volume ascites throughout the abdomen and pelvis. The liver has a markedly nodular contour consistent with advanced cirrhosis. No well-defined liver mass is identified given the limitations of unenhanced CT. The spleen is enlarged measuring up to 17.7 cm in craniocaudal length. The adrenal glands are unremarkable. There is a punctate nonobstructing intrarenal stone on the left. There is a vascular calcification at the right renal hilum. The kidneys are unremarkable, otherwise. Urinary bladder is distended with no wall thickening appreciated. There is a small right inguinal hernia containing fluid. There is no evidence of appendicitis. No extraluminal free gas is identified. There are what appear to be a few dilated varices in the epigastric region. There is thickening of the distal esophageal wall suggesting esophagitis or possibly due to underlying esophageal varices. There is mild prominence of the descending and sigmoid colonic wall. However, this appears to be due to underdistention. The remainder of the GI tract is essentially unremarkable as imaged. There is aortoiliac atherosclerotic calcification. There is no evidence of acute osseous abnormality. IMPRESSION: 1.Large volume ascites. 2.Advanced cirrhosis. 3.Splenomegaly. 4.Likely dilated varices in the epigastric region. 5.Thickened distal esophageal wall. Consider esophagitis or possibly underlying esophageal varices. 6.Other incidental/nonacute findings detailed above. Electronically signed by Puneet Arias 09/12/2018 10:13 AM
--- NOTE | 2018-09-12 13:47 | PROGRESS NOTE ---
DATE: 09/12/2018 SUBJECTIVE: The patient is more complaining of severe abdominal pain so he was seen by a GI doctor who has ordered lipase and abdominal CT which basically showed ascites. At this time, he has received something for pain so he is a little bit sleepy. OBJECTIVE: Vital Signs: Temperature 97.9 degrees, heart rate 60, respiratory 17 blood pressure 113/83, O2 saturation 98%. General: Patient is a chronically ill-appearing 48-year-old male, lying in bed, in no acute distress. Cardiovascular: S1, S2 heard. No murmurs, gallops, or rubs. Regular rate and rhythm. Respiratory: Clear bilaterally to auscultation. No work of breathing or using accessory muscles. Abdomen: Distended with diffuse tenderness noted. No signs of peritoneal irritation though. Extremities: No clubbing, cyanosis, or edema. Peripheral pulses present in both legs. Neurological: Patient is alert and oriented. LABORATORY DATA: Reviewed. Lipase is negative. Abdomen and pelvis CT showed large volume ascites, advanced cirrhosis, and splenomegaly, likely dilated varices in the epigastric region, and thickness of the distal esophageal wall. ASSESSMENT AND PLAN: 1. Abdominal pain, liver cirrhosis with ascites. Hepatitis B and C. 2. Nicotine dependence. 3. Polysubstance abuse. 4. The patient has been admitted to the hospital for abdominal pain. Pain apparently was under control with paracentesis a few days ago. Because patient was feeling uncomfortable in the procedure, we were not able to drain except for 100 mL of ascitic fluid. Today upon GI evaluation because of abdominal pain they ordered a lipase which returned normal, and the CT, which basically showed large volume ascites in that regard, I think this pain may be triggered because of the abdominal distention secondary to ascites so we are going to do a US-guided paracentesis. I will send some ascitic fluid for labs. I think if the patient has good relief from this procedure, I think the patient can be discharged tomorrow with follow-up with GI. Will continue to monitor this patient closely. cc: Clemente Rucker MD
--- NOTE | 2018-09-12 14:56 | Diag Imaging Result Doc PS360 ---
EXAM: US ABD PARACENTESIS W S/I 09/12/2018 HISTORY: abdominal pain TECHNIQUE: Ultrasound-guided paracentesis COMMENT: The risks and benefits the procedure were discussed with the patient and he agreed to the procedure. Following sterile preparation the skin laterally on the right and administration 1% lidocaine to the skin and deeper soft tissues, the paracentesis catheter was placed and subsequently 4.8 L of straw-colored fluid was drained. This was sent to laboratory in its entirety. IMPRESSION: Successful ultrasound-guided paracentesis. Electronically signed by David Rincon 09/12/2018 2:54 PM
[2018-09-12 17:20] LABS: TOTAL PROT BODY FLUID 0.7 g/dL
[2018-09-12 17:27] LABS: ALBUMIN BODY FLUID 0.5 g/dL; AMYLASE BODY FLUID 12 U/L
[2018-09-12 17:44] LABS: BODY FLUID SOURCE PERITONEAL FLUID; WBC BF 193 /cumm
[2018-09-12 17:45] LABS: MONOS 78 %; POLYS 22 %
--- NOTE | 2018-09-12 23:38 | PROVIDER PROGRESS NOTE ---
Progress Note S: No acute overnight events. Afebrile. Patient developed severe a d acute lower abdominal pain without N/V. He received an enema for constipation. VSS. O: Last Vital Signs Temp 97.9 F 09/12/18 23:28 Pulse 59 L 09/12/18 23:28 Resp 18 09/12/18 23:28 BP 93/69 09/12/18 23:28 Pulse Ox 99 09/12/18 23:28 Height 5 ft 10 in Weight 170 lb GEN: awake, alert, rocking back and forth in acute pain HEENT: anicteric, MMM NECK: supple, no jvd PULM: CTAB, no wheezing CV: RRR, no murmurs ABD: distended, diffuse TTP, no rebound or guarding, BS present EXT: no cce NEURO: nonfocal LABS: 09/12/18 09/12/18 09/12/18 06:55 06:55 06:55 WBC 12.68 H Hgb 12.6 L Plt Count 159 D INR 1.53 Sodium 137 Potassium 3.8 Chloride 102 Carbon Dioxide 27 BUN 12 Creatinine 0.8 Glucose 109 H Total Bilirubin 2.02 H AST 40 H ALT 33 Alkaline Phosphatase 104 Total Protein 6.4 Albumin 2.6 L Fluid WBC Fluid Polynuclear WBCs 09/12/18 14:20 WBC Hgb Plt Count INR Sodium Potassium Chloride Carbon Dioxide BUN Creatinine Glucose Total Bilirubin AST ALT Alkaline Phosphatase Total Protein Albumin Fluid WBC 193 Fluid Polynuclear WBCs 22 EGD 09/11 ESOPHAGUS: There were 4 columns of large (grade 3-4) varices in the lower third of the esophagus. The varices were not bleeding. Bleeding prevention was attempted by placing five bands with incomplete eradication. STOMACH: Mild portal hypertensive gastropathy was found. A single non- bleeding, clean-based and shallow ulcer ranging between 3-5 mm in size was found at the incisura. DUODENUM: The duodenum was normal. CT A/P without contrast 09/12 IMPRESSION: 1.Large volume ascites. 2.Advanced cirrhosis. 3.Splenomegaly. 4.Likely dilated varices in the epigastric region. 5.Thickened distal esophageal wall. Consider esophagitis or possibly underlying esophageal varices. 6.Other incidental/nonacute findings detailed above. A/P: Mr. Zachary Bolden is a 48 year old man with HCV and HBV cirrhosis c/b ascites and non-bleeding esophageal varices who was admitted with symptomatic ascites. CT A/P today was negative for SBP. 4.8L of ascites removed today. EGD yesterday revealed grade 3-4 varices s/p EVL x 5, PHG, and a swallow gastric ulcer. Lipase WNL and LFTs are stable. # HBV/HCV cirrhosis - Cirrhosis: trending LFTs, INR daily - Ascites: s/p LVP today with 4.8L today; start lasix 40mg and aldactone 100mg daily tomorrow: I/O, low Na diet - EV: s/p EVL; no history of variceal bleed; recommend repeat EGD in 2-3 weeks per banding protocol - HCC: CT negative for hepatoma, AFP WNL, repeat US every 6 months - OLT: low meld - IMM: HAV immune status unknown; will likely need vaccination as outpatient # HBV: low viral replicator; will consider initiation of therapy given cirrhosis # HCV: 463K VL; unknown genotype; will address as outpatient # PUD: continue PPI BID Will follow with you. Please call with questions
[2018-09-13] MEDS: MORPHINE IM PRN ×3 (03:48→10:16)
[2018-09-13 07:16] LABS: BASO# 0.09 X1000 (0.0-0.2); BASO% 0.7 % (0.0-0.8); EOS# 0.38 X1000 (0.0-0.7); EOS% 2.9 % (0.0-10.0); HEMATOCRIT 36.9 % (42.0-52.0); HEMOGLOBIN 12.8 g/dL (14.0-18.0); IMM GRAN# 0.17 X1000 (0.0-0.04); IMM GRAN% 1.3 % (0.0-0.5); LYMPH# 2.41 X1000 (1.2-3.4); LYMPH% 18.2 % (20.5-51.1); MCH 33.9 PG (27-31); MCHC 34.7 g/dL (33-37); MCV 97.6 FL (81-99); MONO# 1.55 X1000 (0.11-0.59); MONO% 11.7 % (1.7-9.3); MPV 11.1 FL (7.4-10.4); NEUT# 8.63 X1000 (1.4-6.5); NEUT% 65.2 % (42.2-75.2); PLT 157 X1000 (130-400); RBC 3.78 XMIL (4.7-6.1); RDW 16.3 % (11.5-14.5); WBC 13.23 X1000 (4.8-10.8)
[2018-09-13 07:41] VITALS: BP 103/73
[2018-09-13] MEDS ORDERED: LEVAQUIN 500 MG/D5W 500 MG/100 ML IVPB IV SCH (08:45)
[2018-09-13] MEDS ORDERED: LASIX PO SCH (09:00)
[2018-09-13] MEDS ORDERED: LACTULOSE PO SCH (09:00)
[2018-09-13] MEDS ORDERED: ALDACTONE PO SCH (09:00)
[2018-09-13] MEDS ORDERED: PROTONIX PO SCH (09:00)
[2018-09-13] MEDS: NICODERM PATCH TD SCH (09:30)
[2018-09-13] MEDS: MIRALAX PO SCH (09:30)
--- NOTE | 2018-09-13 13:30 | GASTROENTEROLOGY PROGRESS NOTE ---
DATE: 09/13/2018 SUBJECTIVE: The patient is resting in bed. He complains of abdominal pain. His fluid studies showed evidence of elevated white cells and ascitic fluid. I suspect he could have SBP as he continues to complain of abdominal pain and his elevated white count. I will start him on Levaquin once daily. He will take it for 10 days. The patient denies any nausea, vomiting, or vomiting blood. PHYSICAL EXAMINATION: Vital Signs: Temperature of 98, pulse rate of 71, respiratory rate of 14, blood pressure of 103/63, saturating 98% on room air. Body weight of 170 pounds. BMI 24.4 kg/m2. General Appearance: Moderately built, moderately nourished, lying in bed, in no acute distress. HEENT: Mild pallor. Mild icterus. Neck is supple. Abdomen: Discomfort in the periumbilical region. No rebound or guarding. Extremities: No cyanosis or clubbing, Neurologic: He is awake, alert, and oriented x3. LABS: Hemoglobin and hematocrit are 12.8 and 36.9, white count of 13.23, platelet count of 157,000. His fluid studies showed total white cells of 193, polymorphonuclear white cells 22%, and albumin of 0.5 with SAAG more than 1.1, suggesting portal hypertension and liver cirrhosis. His hepatitis B core antibody is positive. His hepatitis B DNA PCR is 951 international units use per mL. His hepatitis B E antigen and antibody are negative. His HIV 1 and 2 are nonreactive. His hepatitis C PCR is 463,224 international units per mL. We will check the genotype. Peritoneal fluid is showing no growth, both aerobic and anaerobic. Urine culture is showing no growth. IMPRESSION AND PLAN: 1. Hepatitis B and hepatitis C, cirrhosis. I am going to follow the liver enzymes and daily INRs. 2. Ascites. He is status post paracentesis with 4.8 L taken out. He will start on Lasix 40 mg and Aldactone 100 mg daily. Continue to take low-sodium diet, less than 2 g per 24 hours, and daily intake and output to be watched. Restrict free fluid to less than 1.5 L in 24 hours. 3. Esophageal varices, status post esophageal variceal ligation by Dr. Quintero yesterday. He will continue to have esophagogastroduodenoscopy with variceal banding every [address] Quintero. He will continue on nadolol 20 mg daily, hold for a heart rate of less than 55 beats per minute and systolic blood pressure less than 90 mmHg. 4. Hepatocellular carcinoma screen is negative. CT scan is negative. AFP is normal. Repeat ultrasound in 6 months. 5. We will check a hepatitis C genotype. 6. Peptic ulcer disease noted on the esophagogastroduodenoscopy. He will need to be on proton pump inhibitors twice a day. 7. CT scan showed evidence of advanced cirrhosis, splenomegaly, and dilated varices in the epigastric region, and thickened distal esophageal wall suggesting esophagitis and varices, and large volume ascites. His esophagogastroduodenoscopy also showed evidence of 4 columns of esophageal varices grade 3-4, status post banding. The patient's esophagogastroduodenoscopy showed mild portal hypertensive gastropathy and a single nonbleeding, clean- based ulcer at the incisura was noted. 8. The patient will follow up with Dr. Quintero on discharge in 2 weeks. The patient was counseled to quit smoking. He will continue to stay away from alcohol. He will avoid any drug abuse. The patient has quit drug abuse for many years now. I will start him on lactulose 30 mL by mouth twice a day for constipation. We will start him on Levaquin 500 mg once daily for a total of 10 days which can transition him to oral medications on discharge. 9. The above plans were discussed with the patient. All questions were answered. Please call us with any further questions. cc: MD Clemente Castillo MD MTDD
== END 2018-09-13 11:56 | disposition home or self-care (01) | DRG 433 ==
LOC: P.ED 20:49 → SUATTDRO 09-08 00:53 → 3N 09-08 00:53
PROVIDERS: ATTEND Internal Medicine
CPT/HCPCS: 49083; 74022; 74176; 76700; 80053; 80074; 80104; 80301; 80305; 81001; 82042; 82105; 82150; 83690; 84157; 85025; 85610; 85730; 86701; 86704; 86707; 87015; 87070; 87075; 87088; 87116; 87206; 87341; 87350; 87389; 87517; 87522; 89051; 94761; 94799; 96374; 99285; A9270; G0431; G0434; G0477; J2270; J2405; J2550; J7030

== ENCOUNTER 2018-09-15 17:27 | Inpatient (IN) ==
[2018-09-15] MEDS ORDERED: STERILE WATER INJ. INJ ONE (17:35)
[2018-09-15] MEDS ORDERED: GEODON ONE (17:35)
[2018-09-15] MEDS ORDERED: STERILE WATER INJ. ONE (17:35)
[2018-09-15] MEDS ORDERED: GEODON IM ONE (17:35)
[2018-09-15] MEDS ORDERED: ATIVAN IM ONE ×3 (17:56→21:53)
[2018-09-15] MEDS ORDERED: BENADRYL IM ONE (17:56)
--- NOTE | 2018-09-15 18:56 | PROVIDER DOCUMENTATION ---
This chart was entered by Marielos Mehta Scribe, acting as scribe for Yariel Paris MD. HPI-Neurological Disorder - General Source: EMS <Yariel Paris - Last Filed: 09/15/18 18:54> <Reyna Patrick - Last Filed: 09/16/18 01:42> - General Stated Complaint: AMS Time Seen by Provider: 09/15/18 17:30 Allergies/Adverse Reactions: Patient Allergies Allergy/AdvReac Type Severity Reaction Status Date / Time No Known Allergies Allergy Verified 09/15/18 21:55 Home Medications: Home Medication List Medication Instructions Recorded Confirmed Last Taken Type Furosemide [Lasix] 40 mg PO DAILY #90 tab 09/13/18 Unknown Rx Lactulose 30 ml PO BID #60 udc 09/13/18 Unknown Rx Meperidine [Demerol] 50 mg PO Q4H PRN PRN #20 tab 09/13/18 Unknown Rx Nicotine Patch [Nicoderm Patch] 21 mg TD DAILY patch.[id number] 09/13/18 Unknown Rx Pantoprazole [Protonix] 40 mg PO BID #60 tab 09/13/18 Unknown Rx Spironolactone [Aldactone] 100 mg PO DAILY #90 tab 09/13/18 Unknown Rx - History of Present Illness-Neuro Nature of Presenting Problem: 48yom presents to ED by EMS cc AMS since 4:30 am. EMS reports pt family called them b/c pt isn't acting like himself, has been fighting and very aggressive today. Pt is very aggressive and cursing upon exam.Pt has hx of chirrhosis. (Yariel Paris) Review of Systems - Adult - REVIEW OF SYSTEMS - ADULT ROS:: unobtainable per condition (due to AMS) Constitutional: reports: no symptoms reported <Reyna Patrick - Last Filed: 09/16/18 01:42> Past History - Adult - PAST MEDICAL HISTORY-ADULT Review of Records: reports: Nursing Assessment Review, Medications Reviewed, Social history reviewed & non-contributory. Major Childhood Illnesses: reports: denies history Cardiovascular: reports: denies history Respiratory: reports: denies history Gastrointestinal: reports: denies history Obstetrical/Gynecological: reports: denies history Genitourinary: reports: denies history Musculoskeletal: reports: denies history Neurological: reports: denies history Endocrine/Immune: reports: denies history Other Conditions: reports: denies history - IMMUNIZATION STATUS Childhood Immunizations: See Nurse Assessment Flu Vaccine: See Nurse Assessment - FAMILY HISTORY Family History: reviewed, not pertinent <Yariel Paris - Last Filed: 09/15/18 18:54> Physical Exam- Neurological - Physical Exam-Neuro Initial Vital Signs Reviewed: Yes General Appearance: anxious, combative Psych/Mental Status: anxious <Yariel Paris - Last Filed: 09/15/18 18:54> Progress - CHANGE OF SHIFT REPORT (ED Provider) 1 Report Given and Care Transferred to:: MARY Time of Transfer: 19:00 Items Pending: Labs, CT/MRI Results <Yariel Paris - Last Filed: 09/15/18 18:54> - PLAN OF CARE/RESULTS Result Diagrams: 09/15/18 20:06 09/15/18 20:06 - REASSESSMENT Reassessment #1 Status: other (Pt signed out to ut by Dr. Paris at [address] results) Reassessment #2 Status: other (continued confusion likley due to encephalopathy. Pt with difficult IV access, finally obtained under US guidance. Will admit for further evaluaiton and treatment. Discussed case with Dr. Hooper, Hospitalist, who will see and admit pt.) - EKG 1 Time of EKG reading by physician:: 19:20 EKG Read and Signed by:: Reyna Patrick EKG Interpretation (*Must complete 3 of following elements*): Abnormal (Sinus Rhythm, rate 94, no acute st changes, LBBB, Left axis deviation, normal intervals) - CT/MRI 1 CT Study: Head Impression: Normal (per radiologist read "no acute intracranial findings") <Reyna Patrick - Last Filed: 09/16/18 01:42> - PLAN OF CARE/RESULTS Progress/Plan/Lab Results: Vital Signs - 8 hr 09/15/18 17:51 09/15/18 18:03 09/15/18 18:14 Pulse Rate Blood Pressure 143/99 148/106 163/111 O2 Sat by Pulse Oximetry 09/15/18 18:58 09/15/18 19:00 09/15/18 19:10 Pulse Rate Blood Pressure O2 Sat by Pulse Oximetry 100 97 100 09/15/18 19:20 09/15/18 22:02 09/15/18 22:03 Pulse Rate Blood Pressure 170/123 162/128 O2 Sat by Pulse Oximetry 100 09/15/18 23:03 09/15/18 23:26 09/15/18 23:34 Pulse Rate Blood Pressure 174/147 187/124 151/99 O2 Sat by Pulse Oximetry 09/15/18 23:57 09/16/18 00:00 09/16/18 00:03 Pulse Rate 75 74 71 Blood Pressure 130/99 O2 Sat by Pulse Oximetry 100 100 100 09/16/18 00:10 09/16/18 00:20 09/16/18 01:03 Pulse Rate 77 74 73 Blood Pressure 127/104 O2 Sat by Pulse Oximetry 100 100 100 Laboratory Results - last 24 hr 09/15/18 09/15/18 09/15/18 19:24 20:06 20:06 WBC 12.05 H RBC 4.17 L Hgb 14.1 Hct 39.6 L MCV 95.0 MCH 33.8 H MCHC 35.6 RDW Std Deviation 15.7 H Plt Count 151 MPV 11.2 H Immature Gran % (Auto) 0.7 H Neut % (Auto) 76.1 H Lymph % (Auto) 14.4 L [place] % (Auto) 8.0 Eos % (Auto) 0.5 Baso % (Auto) 0.3 Immature Gran # (Auto) 0.09 H Neut # (Auto) 9.17 H Lymph # (Auto) 1.73 [place] # (Auto) 0.96 H Eos # (Auto) 0.06 Baso # (Auto) 0.04 Sodium Potassium Chloride Carbon Dioxide Anion Gap BUN Creatinine Estimated GFR/1.73 m2 BUN/Creatinine Ratio Glucose POC Glucose 107 H Calculated Osmolality Calcium Total Bilirubin AST ALT Alkaline Phosphatase Ammonia Total Protein Albumin Globulin Albumin/Globulin Ratio Urine Source Urine Color Urine Turbidity Urine pH Ur Specific Neal Urine Protein Ur Glucose (Stick) Ur Ketones (Stick) Urine Blood Urine Nitrite Urine Bilirubin Urobilinogen Dipstick Urine Leukocytes Urine WBC (Auto) Urine RBC (Auto) U Epithel Cells (Auto) Urine Bacteria (Auto) Salicylates Urine Opiates Screen Ur Oxycodone Screen Ur Methadone, Qual Acetaminophen Ur Barbiturates Screen Ur Phencyclidine Scrn Ur Amphetamines Screen U Benzodiazepines Scrn Urine Cocaine Screen U Cannabinoids Screen Plasma/Serum Ethyl Alc 09/15/18 09/15/18 09/15/18 20:06 20:06 21:29 WBC RBC Hgb Hct MCV MCH MCHC RDW Std Deviation Plt Count MPV Immature Gran % (Auto) Neut % (Auto) Lymph % (Auto) [place] % (Auto) Eos % (Auto) Baso % (Auto) Immature Gran # (Auto) Neut # (Auto) Lymph # (Auto) [place] # (Auto) Eos # (Auto) Baso # (Auto) Sodium 138 Potassium 5.1 Chloride 106 Carbon Dioxide 20 L Anion Gap 12 BUN 19 Creatinine 1.0 Estimated GFR/1.73 m2 > 60 BUN/Creatinine Ratio 19 Glucose 113 H POC Glucose Calculated Osmolality 279 Calcium 8.9 Total Bilirubin 2.66 H AST 55 H ALT 47 H Alkaline Phosphatase 118 Ammonia 140 H Total Protein 7.8 Albumin 3.1 L Globulin 4.7 Albumin/Globulin Ratio 0.7 Urine Source CATH Urine Color YELLOW Urine Turbidity CLEAR Urine pH 8.0 Ur Specific Neal 1.011 Urine Protein NEGATIVE Ur Glucose (Stick) NEGATIVE Ur Ketones (Stick) NEGATIVE Urine Blood NEGATIVE Urine Nitrite NEGATIVE Urine Bilirubin NEGATIVE Urobilinogen Dipstick 6 A Urine Leukocytes NEGATIVE Urine WBC (Auto) <10 Urine RBC (Auto) <10 U Epithel Cells (Auto) <10 Urine Bacteria (Auto) NEGATIVE Salicylates < 3.00 L Urine Opiates Screen Ur Oxycodone Screen Ur Methadone, Qual Acetaminophen < 1.2 L Ur Barbiturates Screen Ur Phencyclidine Scrn Ur Amphetamines Screen U Benzodiazepines Scrn Urine Cocaine Screen U Cannabinoids Screen Plasma/Serum Ethyl Alc 09/15/18 21:29 WBC RBC Hgb Hct MCV MCH MCHC RDW Std Deviation Plt Count MPV Immature Gran % (Auto) Neut % (Auto) Lymph % (Auto) [place] % (Auto) Eos % (Auto) Baso % (Auto) Immature Gran # (Auto) Neut # (Auto) Lymph # (Auto) [place] # (Auto) Eos # (Auto) Baso # (Auto) Sodium Potassium Chloride Carbon Dioxide Anion Gap BUN Creatinine Estimated GFR/1.73 m2 BUN/Creatinine Ratio Glucose POC Glucose Calculated Osmolality Calcium Total Bilirubin AST ALT Alkaline Phosphatase Ammonia Total Protein Albumin Globulin Albumin/Globulin Ratio Urine Source Urine Color Urine Turbidity Urine pH Ur Specific Neal Urine Protein Ur Glucose (Stick) Ur Ketones (Stick) Urine Blood Urine Nitrite Urine Bilirubin Urobilinogen Dipstick Urine Leukocytes Urine WBC (Auto) Urine RBC (Auto) U Epithel Cells (Auto) Urine Bacteria (Auto) Salicylates Urine Opiates Screen NONE DETECTED Ur Oxycodone Screen NONE DETECTED Ur Methadone, Qual NONE DETECTED Acetaminophen Ur Barbiturates Screen NONE DETECTED Ur Phencyclidine Scrn NONE DETECTED Ur Amphetamines Screen NONE DETECTED U Benzodiazepines Scrn NONE DETECTED Urine Cocaine Screen NONE DETECTED U Cannabinoids Screen PRESUMPTIVE POSITIVE A Plasma/Serum Ethyl Alc Orders Category Date Time Status Finger Stick Blood Sugar (ED) DIRECTED Care 09/15/18 17:50 Active Perez Cath Insertion ORDERED Care 09/15/18 17:35 Active Saline Loc NOW Care 09/15/18 17:[address] HEAD W/O CONTRAST [CT] Stat Exams 09/15/18 17:35 Taken ACETAMINOPHEN [TDM] Stat Lab 09/15/18 20:06 Completed ALCOHOL BLOOD Stat Lab 09/15/18 20:06 Completed AMMONIA [CHEM] Stat Lab 09/15/18 20:06 Completed CBC WITH ELECTRONIC DIFF [HEME] Stat Lab 09/15/18 20:06 Completed COMPREHENSIVE METABOLIC PANEL [CHEM] Stat Lab 09/15/18 20:06 Completed SALICYLATES [TDM] Stat Lab 09/15/18 20:06 Completed UA NIMS W/REFLEX CULT [URINALYSIS] Stat Lab 09/15/18 21:29 Completed URINE DRUG SCREEN Stat Lab 09/15/18 21:29 Completed Diphenhydramine [Benadryl] Med 09/15/18 17:56 Discontinued 50 mg IM NOW ONE Haloperidol Lactate [Haldol] Med 09/15/18 19:46 Discontinued 5 mg .ROUTE .STK-MED ONE Haloperidol Lactate [Haldol] Med 09/15/18 21:54 Discontinued 5 mg IM NOW ONE Lorazepam [Ativan] Med 09/15/18 21:53 Discontinued 1 mg IM NOW ONE Lorazepam [Ativan] Med 09/15/18 19:46 Discontinued 2 mg .ROUTE .STK-MED ONE Lorazepam [Ativan] Med 09/15/18 17:56 Discontinued 2 mg IM NOW ONE Lorazepam [Ativan] Med 09/15/18 21:30 Discontinued 2 mg IM NOW ONE Water, Sterile Inj [Sterile Water Inj] Med 09/15/18 17:35 Discontinued 1.2 ml INJ NOW ONE Water, Sterile Inj [Sterile Water Inj] Med 09/15/18 17:35 Discontinued 10 ml .ROUTE .STK-MED ONE Ziprasidone [Geodon] Med 09/15/18 17:35 Discontinued 20 mg .ROUTE .STK-MED ONE Ziprasidone [Geodon] Med 09/15/18 17:35 Discontinued 20 mg IM NOW ONE EKG [EKG] Stat Ther 09/15/18 22:51 Draft Departure - Departure Date of Disposition Decision: 09/15/18 Certified Medical Emergency: Emergent <Yariel Paris - Last Filed: 09/15/18 18:54> - Departure Time of Disposition Decision: 01:42 - Critical Care Note This patient required my direct & personal management of CC.: No <Reyna Patrick - Last Filed: 09/16/18 01:42> - Departure DIAGNOSIS: Encephalopathy acute Altered mental state Qualifiers: Altered mental status type: unspecified Qualified Code(s): R41.82 - Altered mental status, unspecified Disposition: ADMITTED INPATIENT 09 Condition: Fair Additional Freetext Instructions: ED Follow Up Instructions: You have been treated by a care provider in the Emergency Department. These instructions are being provided to you so you can have an understanding of how to care for yourself upon discharge. Upon discharge from the Emergency Department, you are responsible for making arrangements for follow-up care by a physician of your choice. Take all prescribed medications as directed. Return to the Emergency Department immediately for any new or worsening symptoms. You may call the Physician Referral phone number at [phone] to obtain a list of Physicians who are taking new patients. Attestation - Physician/ DIANA Attestation Patient care was provided by Advanced Practice Provider:: No The physician spent face to face time with patient:: Yes Advanced Practice Provider documentation review:: Supervising physician onsite and consulted in the evaluation and care of this patient. The physician did have a face to face encounter with the patient. <Yariel Paris - Last Filed: 09/15/18 18:54> This chart was documented by the indicated scribe, (Marielos Mehta, Scribe) and accurately reflects the services I performed and decisions made by me, Yariel Paris MD, as attested by the provider's signature.
[2018-09-15] MEDS ORDERED: HALDOL ONE (19:46)
[2018-09-15] MEDS ORDERED: ATIVAN ONE (19:46)
[2018-09-15 20:18] LABS: BASO# 0.04 X1000 (0.0-0.2); BASO% 0.3 % (0.0-0.8); EOS# 0.06 X1000 (0.0-0.7); EOS% 0.5 % (0.0-10.0); HEMATOCRIT 39.6 % (42.0-52.0); HEMOGLOBIN 14.1 g/dL (14.0-18.0); IMM GRAN# 0.09 X1000 (0.0-0.04); IMM GRAN% 0.7 % (0.0-0.5); LYMPH# 1.73 X1000 (1.2-3.4); LYMPH% 14.4 % (20.5-51.1); MCH 33.8 PG (27-31); MCHC 35.6 g/dL (33-37); MONO# 0.96 X1000 (0.11-0.59); MPV 11.2 FL (7.4-10.4); NEUT# 9.17 X1000 (1.4-6.5); NEUT% 76.1 % (42.2-75.2); PLT 151 X1000 (130-400); RBC 4.17 XMIL (4.7-6.1); RDW 15.7 % (11.5-14.5); WBC 12.05 X1000 (4.8-10.8)
[2018-09-15 20:44] LABS: ACETAMINOPHEN < 1.2 ug/mL (10-30); AGAP 12; ALB/GLOB RATIO 0.7; ALBUMIN 3.1 g/dL (3.5-5.0); ALKALINE PHOSPHATASE 118 U/L (32-122); BUN 19 mg/dL (8-22); CALCIUM 8.9 mg/dL (8.8-10.2); CHLORIDE 106 mmol/L (98-107); COSMO 279; ESTIMATED GFR > 60; GLUCOSE 113 mg/dL (70-104); GOT 55 U/L (10-34); GPT 47 U/L (10-44); POTASSIUM 5.1 mmol/L (3.5-5.1); SALICYLATES < 3.00 mg/dL (3-10); SODIUM 138 mmol/L (136-145); TCO2 20 mmol/L (25-35); TOTAL BILIRUBIN 2.66 mg/dL (0.20-1.00); TOTAL PROTEIN 7.8 g/dL (6.3-8.3)
[2018-09-15 21:45] LABS: URINE SOURCE CATH
[2018-09-15 21:51] LABS: BILIRUBIN URINE NEGATIVE (NEGATIVE); BLOOD URINE NEGATIVE (NEGATIVE); COLOR YELLOW; GLUCOSE URINE NEGATIVE (NEGATIVE); KETONE URINE NEGATIVE (NEGATIVE); LEUKOCYTES URINE NEGATIVE (NEGATIVE); NITRITE URINE NEGATIVE (NEGATIVE); PROTEIN URINE NEGATIVE (NEGATIVE); SP GRAVITY URINE 1.011; TURBIDITY URINE CLEAR (CLEAR); UROBILINOGEN URINE 6 mg/dL (NORMAL)
[2018-09-15 21:53] LABS: UR EPITHELIAL CELLS <10 /HPF (<10); URINE BACTERIA NEGATIVE /HPF; URINE RBC <10 /HPF (<10); URINE WBC <10 /HPF (<10)
[2018-09-15] MEDS ORDERED: HALDOL IM ONE (21:54)
[2018-09-15 21:59] LABS: UR AMPHETAMINES QUAL NONE DETECTED (NONE DETECT); UR BARBITUATES QUAL NONE DETECTED (NONE DETECT); UR BENZODIAZEPIN QUAL NONE DETECTED (NONE DETECT); UR CANNABINOIDS QUAL PRESUMPTIVE POSITIVE (NONE DETECT); UR COCAINE QUAL NONE DETECTED (NONE DETECT); UR METHADONE QUAL NONE DETECTED (NONE DETECT); UR OPIATES QUAL NONE DETECTED (NONE DETECT); UR OXYCODONE QUAL NONE DETECTED (NONE DETECT); UR PCP QUAL NONE DETECTED (NONE DETECT)
--- NOTE | 2018-09-15 23:54 | EKG Report ---
Test Performed on : 09/15/2018 7:17:16 PM Test Reason : ams Blood Pressure : / mmHG Vent. Rate : 094 BPM Atrial Rate : 094 BPM P-R Int : 160 ms QRS Dur : 140 ms QT Int : 430 ms P-R-T Axes : 066 -40 116 degrees QTc Int : 537 ms Normal sinus rhythm. Possible Left atrial enlargement Left axis deviation Left bundle branch block Abnormal ECG No previous ECGs available Unconfirmed Result
--- NOTE | 2018-09-16 04:04 | HISTORY AND PHYSICAL ---
PRIMARY CARE PHYSICIAN: None. REASON FOR ADMISSION: Altered mental status. HISTORY: Mr. Zachary Bolden is a 48-year-old man with past medical history of hepatitis B and C, and presumed history of IV drug abuse. The patient was discharged on 09/13/2018, was prescribed lactulose and some other medications, which according to the family, he was not taking at all. He was also given diuretics but never took them. He was brought in today by family because over the last few days he has been more confused, using a lot of profanity. On arrival to the ER, he had to be given multiple doses of Ativan, Haldol, and even Geodon because he was swinging at the nurses, he was very combative, very loud and disruptive to the other patients. By the time I got here, there was no family at the bedside and he was sedated, thus I could not get any meaningful history. History so far relayed was given to me by his nurse. No reported bleeding from any orifice. REVIEW OF SYSTEMS: Very limited. ALLERGIES: No known allergies. HOME MEDICATION: Patient was prescribed spironolactone 100 mg daily, Demerol 60 mg q.4h p.r.n., lactulose 30 mL b.i.d., Lasix 40 mg daily, NicoDerm 21 mg daily, Protonix 40 mg b.i.d. PAST MEDICAL HISTORY: Includes hypertension. PAST SURGICAL HISTORY: Nil/none. FAMILY HISTORY: Unknown. SOCIAL HISTORY: Per old records, he smokes half a pack a day. LAB WORK: Total bilirubin is 2.66, AST 55, ALT 47, ammonia 140. White count 12,000, hemoglobin and hematocrit 14 and 39, platelets 151,000. Urinalysis is clean. Salicylates and acetaminophen undetected. UDS is negative except for cannabinoids. Alcohol level is undetected. Head CT, no acute process. PHYSICAL EXAMINATION: GENERAL: Thin, man who is heavily sedated. VITAL SIGNS: His blood pressure is 127/104, heart rate is 72, respiratory rate is 14. He is currently afebrile. HEENT: Head is normocephalic, atraumatic. Eyes are miotic but reactive. No nystagmus. He is anicteric and not pale. ENT, mouth is dry. Oropharynx is devoid of any exudates or erythema. He has mild xerostomia. No central cyanosis noted. NECK: Supple. No JVD. No carotid bruit or thyromegaly. SKIN: The patient has good skin turgor. CHEST: Clear to auscultation both lung cummins. CARDIOVASCULAR: 1st and 2nd heart sounds heard. No gallops, murmurs, rubs. Rhythm is regular. ABDOMEN: Full, soft with no tenderness elicited, i.e. the patient did not grimace when I did deep palpation. Bowel sounds are hypoactive, rectal exam deferred at this time. EXTREMITIES: The patient has decreased pulse volumes distally in all extremities. Rhythm is regular. No edema, clubbing, or cyanosis. NEUROLOGICAL: Could not be fully assessed but he would sporadically move all extremities. I could not appreciate any gross motor deficits. SKIN: Numerous tattoos all over but no overt skin breakdown. MUSCULOSKELETAL: Grossly normal. ASSESSMENT: 1. Hepatic encephalopathy. 2. Hypertension. 3. Hepatitis B and C complicated with advanced cirrhosis. PLAN: Currently patient is sedated. Our options for addressing encephalopathy include the following, passage of an NG tube if the patient is restrained and putting down lactulose through the NG tube. Alternatively, can have an lactulose enema to begin with. When patient is more lucid, may add on Xifaxan, in addition to lactulose if lactose is not working after 48 hours. The patient does have varices noted on his CT scan. When patient is discharged, low-dose nonselective beta-tess can be given. Hold diuretics for now because dehydration is one of the potential triggers for encephalopathy. He was also given some Demerol, that needs to be held as that could make things worse. Any other sedating agent, including Ativan, could also compound issues but the benefits, i.e. keeping the patient chemically restrained and not allowing him to assault medical staff outweighs the potentially prolonged length of stay in the hospital from protracted benzodiazepine-induced encephalopathy. Otherwise, advise to lessen sedation to see and assess the patient's cognitive and neurological status, to see if he can take orally, i.e., lactulose and Xifaxan, which would hasten his recovery. cc: MD MARISOL Benitez
[2018-09-16] MEDS: D5 NS 1,000 ML IV SCH ×2 (08:33→19:00)
[2018-09-16] MEDS: FLAGYL 500 MG/NS 500 MG/100 ML IVPB IV SCH ×3 (08:34→20:25)
--- NOTE | 2018-09-16 09:12 | Diag Imaging Result Doc PS360 ---
CT HEAD W/O CONTRAST - 09/15/2018 INDICATION: ALTERED MENTAL STATUS COMPARISON: None FINDINGS: The ventricles and sulci are normal in size and contour. No intracranial mass or hemorrhage. The skull is intact. The sinuses mastoids and middle ears are clear. IMPRESSION: Negative exam. This exam was performed using automated exposure control, adjustment of mA or kV according to patient size, and/or use of iterative reconstruction technique Electronically signed by Deshawn Sharpe 09/16/2018 9:10 AM
[2018-09-16] MEDS: ATIVAN IV PRN ×5 (09:46→22:26)
[2018-09-16] MEDS: LACTULOSE PO SCH ×3 (10:00→17:26)
[2018-09-16] MEDS: XIFAXAN PO SCH ×2 (10:00→20:25)
[2018-09-16] MEDS: ATIVAN IM PRN ×2 (10:05→14:13)
--- NOTE | 2018-09-16 10:36 | PROGRESS NOTE ---
DATE: 09/16/2018 SUBJECTIVE: Mr. Bolden was admitted yesterday. He has no primary care physician. This is a 48-year-old with past medical history of hepatitis B and C, presumed history of IV drug use. The patient was discharged on 09/13/2018, was prescribed lactulose and other medications. According to family, he was not taking them at all. He was given diuretics, but never took them. Brought in to the emergency room yesterday because over the last few days was confused, using a lot of profanity. On arrival to the ER, he had multiple doses of Ativan, Haldol, and Geodon because he was swinging at the nurses and combative. By the time he got here, the physician who admitted him came. He was sedated, could not give much meaningful history. Past medical history includes hypertension and hepatitis B and C, cirrhosis. He has not had any surgeries according to old records. I saw him in the unit. He was combative again. He pulled out his IV. Trying to get IV access. Will give him some IV Ativan and see if we can perform a PICC line and put him in restraints. We would like to start NG tube and start his lactulose and Xifaxan. OBJECTIVE: Vital Signs: He is afebrile, pulse 70, respirations 16, blood pressure 155/91. Actually, blood pressures are now around 160/110. HEENT: Pupils are equal. Neck: No distended neck veins. Lungs: Clear in all lung cummins. Cardiovascular: Regular rhythm and rate without murmur or S3. Abdomen: Soft. Skin: Warm and dry. IMAGING AND LABORATORY DATA: His white count is 12,050, hematocrit 39, platelet count 151,000. Sodium 138, potassium 5.1, chloride 106, BUN 19, creatinine 1.0. Total bilirubin was 2.6, AST 55, ALT 47, ammonia 140, albumin 4.7. Urinalysis positive for cannabinoids. Salicylate was less than 3, and acetaminophen less than 1.2. Urinalysis unremarkable. CT of his head without contrast: Negative exam. ASSESSMENT AND PLAN: 1. Hepatic encephalopathy, hepatitis B and C with advanced cirrhosis. Agitated. Will see if we can give him some Ativan to help sedate him so we can get a peripherally-inserted central catheter line and get intravenous access and try and put a nasogastric tube in and start lactulose 30 mL every 8 hours, and put him on Xifaxan when we can. 2. Metabolic encephalopathy secondary to hepatic encephalopathy. 3. Hypertension. 4. Underlying hepatitis B and C. His hematocrit and hemoglobin appear stable. His renal function appears to be stable. He has mild elevation of transaminases. cc: Micah Marroquin MD
--- NOTE | 2018-09-16 11:29 | Diag Imaging Result Doc PS360 ---
CHEST-PORTABLE - 09/16/2018 INDICATION: NG tube placement COMPARISON: 09/07/2018 FINDINGS: There is a nasogastric tube in good position in the stomach. No definite infiltrates in the lungs. Heart size is normal. IMPRESSION: Nasogastric tube in the stomach. Electronically signed by Deshawn Sharpe 09/16/2018 11:27 AM
[2018-09-16 12:26] LABS: INR 1.47
[2018-09-16] MEDS ORDERED: NS 250 ML ONE (13:57)
[2018-09-16] MEDS: NEXIUM IV SCH (16:40)
[2018-09-16] MEDS: LEVAQUIN 500 MG/D5W 500 MG/100 ML IVPB IV SCH (16:40)
[2018-09-16] MEDS: VITAMIN K 10 MG in NS 50 ML IV SCH (17:19)
[2018-09-16] MEDS ORDERED: ATIVAN IV PRN (17:39)
--- NOTE | 2018-09-16 19:16 | GASTROENTEROLOGY CONSULTATION ---
DATE: 09/16/2018 REASON FOR CONSULTATION: Liver cirrhosis. HISTORY OF PRESENT ILLNESS: Mr. Bolden is a 48-year-old male who was admitted on 09/16/2018 for altered mental status. He was recently discharged on 09/13/2018 after he was treated for liver cirrhosis and ascites. The patient was discharged home, but he was not taking his medications. According to the records, he had altered mental status and was confused. He was brought to the ER by the family. In the hospital, he was given Ativan, Haldol, Geodon and he was put on restraints as the patient was being combative. The patient has a known history of chronic hepatitis B and chronic hepatitis C complicated with liver cirrhosis. He has a prior history of intravenous drug abuse. He has quit for many years. He had a recent paracentesis done 2 times in the hospital last week. He also had a EGD done with Dr. Quintero during the last hospitalization in which he was found to have esophageal varices. According to the records, there is no documented vomiting or blood passing blood in the stools. PAST MEDICAL HISTORY: Chronic hepatitis B and chronic hepatitis C. History of drug abuse, liver cirrhosis, esophageal varices, ascites, question of SKI MAKER. ALLERGIES: No known drug allergies. REVIEW OF SYSTEMS: Could not be obtained. PAST SURGICAL HISTORY: EGD and paracentesis. FAMILY HISTORY: Unknown. SOCIAL HISTORY: Smokes half pack a day per the records. Has a history of drug abuse. MEDICATIONS IN THE HOSPITAL INCLUDE: Tylenol, dextrose 5%, normal saline at 100 mL/hour, Nexium twice daily, Flagyl 5 mg IV q.6 hours, lactulose 30 mL p.o. t.i.d., Levaquin 500 mg once daily, Ativan 2 mg IV IM q.1 hour as needed, Zofran 4 mg IV every 4 hours, vitamin K given 1 dose starting today, Xifaxan 550 mg p.o. b.i.d. The patient is currently NPO. PHYSICAL EXAMINATION: Vital Signs: Temperature of 97.4 degrees, pulse rate of 82, respiratory 15, blood pressure 132/96, saturating 99% on room air. Body weight of 139 pounds, BMI 24.2 kg. General: The patient is lying in bed, currently sedated and in restraints. HEENT: No pallor. Mild icterus. Neck: Supple. Abdomen: Soft, nondistended. No guarding. Extremities: No cyanosis, clubbing. Upper and lower extremity restraints. Neurological: He is sedated. LABS: Hemoglobin and hematocrit are 14.1 and 39.6, white count of 12.05, platelet count of 151,000. INR 1.47, PT of 19. Sodium 130, potassium 5.1, chloride 106, bicarb 20, anion gap 12, BUN of 19, creatinine 1, glucose 113, calcium is 8.9, total bilirubin is 2.6. AST 55, ALT 47. Alkaline phosphatase 118, total protein is 7.8, albumin of 3.1, ammonia 140. Urinalysis showing positive urobilinogen. Toxicology screen is positive for cannabis. Chest x-ray showed nasogastric tube in the stomach. Last EGD on 09/11/2018 showed evidence of 4 columns of large varices in the lower 3rd of the esophagus, 5 bands were placed. Mild portal hypertensive gastropathy was found. A single nonbleeding clean-based ulcer also noted 3 to 5 mm at the incisura. IMPRESSION AND PLAN: 1. Chronic hepatitis B and C. 2. Chronic liver cirrhosis. 3. Esophageal varices grade 3 and 4. 4. Portal hypertensive gastropathy. 5. Gastric ulcer in the gastric antrum. 6. History of ascites. 7. 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 8. Noncompliance with medications. 9. History of drug abuse. In the past. 10. The liver enzymes. 11. Confusion altered mental status. 12. Hepatic encephalopathy. 13. Continue to watch liver enzymes and other labs. We will continue with IV fluids. He will continue on Nexium twice daily. We will continue lactulose and Xifaxan. We will continue on Levaquin and Flagyl. He could have SBP. We will give him vitamin K today. He is on Ativan for agitation as needed. 14. Deep venous thrombosis prophylaxis. He is not on any sequential compression devices and MISTI's for now. He may need sequential compression devices and MISTI's if okay with the primary team. 15. Gastrointestinal prophylaxis with Nexium Above plan discussed with the patient's nurse at bedside. All questions answered. Please call us with any further questions. cc: MD Micah Castillo MD MTDD
[2018-09-17] MEDS: FLAGYL 500 MG/NS 500 MG/100 ML IVPB IV SCH ×4 (01:18→19:37)
[2018-09-17] MEDS: ATIVAN IV PRN ×5 (02:22→21:55)
[2018-09-17] MEDS: SODIUM CHLORIDE 0.9% INJ SCH ×2 (03:09→15:06)
[2018-09-17] MEDS: NEXIUM IV SCH ×2 (03:10→15:06)
[2018-09-17 06:44] LABS: BASO# 0.04 X1000 (0.0-0.2); BASO% 0.3 % (0.0-0.8); EOS# 0.07 X1000 (0.0-0.7); EOS% 0.6 % (0.0-10.0); HEMATOCRIT 33.5 % (42.0-52.0); HEMOGLOBIN 11.6 g/dL (14.0-18.0); IMM GRAN# 0.07 X1000 (0.0-0.04); IMM GRAN% 0.6 % (0.0-0.5); LYMPH# 1.51 X1000 (1.2-3.4); LYMPH% 12.5 % (20.5-51.1); MCH 34.6 PG (27-31); MCHC 34.6 g/dL (33-37); MONO# 1.47 X1000 (0.11-0.59); MONO% 12.2 % (1.7-9.3); MPV 11.7 FL (7.4-10.4); NEUT# 8.89 X1000 (1.4-6.5); NEUT% 73.8 % (42.2-75.2); PLT 100 X1000 (130-400); RBC 3.35 XMIL (4.7-6.1); RDW 16.2 % (11.5-14.5); WBC 12.05 X1000 (4.8-10.8)
[2018-09-17 06:48] LABS: AGAP 10; ALB/GLOB RATIO 0.6; ALBUMIN 2.6 g/dL (3.5-5.0); ALKALINE PHOSPHATASE 99 U/L (32-122); BUN 22 mg/dL (8-22); CALCIUM 8.2 mg/dL (8.8-10.2); CHLORIDE 110 mmol/L (98-107); COSMO 285; CREATININE 0.9 mg/dL (0.7-1.2); ESTIMATED GFR > 60; GLUCOSE 106 mg/dL (70-104); GOT 72 U/L (10-34); GPT 41 U/L (10-44); MAGNESIUM 1.9 mg/dL (1.5-2.7); POTASSIUM 3.9 mmol/L (3.5-5.1); SODIUM 141 mmol/L (136-145); TCO2 21 mmol/L (25-35); TOTAL BILIRUBIN 2.35 mg/dL (0.20-1.00); TOTAL PROTEIN 6.6 g/dL (6.3-8.3)
[2018-09-17] MEDS: VITAMIN K 10 MG in NS 50 ML IV SCH (08:32)
[2018-09-17] MEDS: LACTULOSE PO SCH ×3 (08:32→17:46)
[2018-09-17] MEDS: XIFAXAN PO SCH ×2 (08:32→20:02)
[2018-09-17] MEDS ORDERED: VITAMIN K 10 MG in NS 50 ML IV SCH (09:00)
--- NOTE | 2018-09-17 09:18 | PROGRESS NOTE ---
DATE: 09/17/2018 SUBJECTIVE: Mr. Bolden is a little more cooperative. He still knows who his name is. He knows in general he is in the hospital. He is in 4 point restraint. Did get a PICC line in yesterday. OBJECTIVE: Vital Signs: Temperature 98.6 degrees, pulse 103, respirations 16, blood pressure 126/95. HEENT: Pupils are equal and round. Lungs: Clear in all lung cummins. Cardiovascular: Regular rhythm and rate without murmur or S3. : Urine output is 1400 mL. ASSESSMENT AND PLAN: 1. Chronic hepatitis B and C, chronic liver cirrhosis. He has esophageal varices, grade 3 and 4, portal hypertension and now hepatic encephalopathy. He has an NG tube. We are giving him lactulose and Xifaxan and it looks like he has made a little improvement. I will check another ammonia level. Follow his electrolytes and renal function. 2. Gastric ulcer in the gastric antrum. 3. History of ascites. 4. Possible supraventricular tachycardia. 5. Noncompliance to medication. 6. History of drug use and abuse. 7. Elevated transaminases. 8. He has IV access. He has not been able to eat. We will continue to try and help his agitation with some Ativan. I do have him on empiric antibiotics, Flagyl 500 mg IV q.6 and, of course, he is on the rifaximin 550 mg b.i.d. He is on Levaquin 500 mg q.24 hours. cc: Micah Marroquin MD
[2018-09-17] MEDS: M.V.I.-12 10 ML, FOLIC ACID 1 MG, MAGNESIUM SULFATE 1 GM, THIAMINE 100 MG in NS 1,000 ML IV SCH (10:29)
[2018-09-17] MEDS: CLINIMIX E 4.25%-5% SOLUTION 1,000 ML IV SCH ×2 (11:25→16:48)
[2018-09-17] MEDS: LEVAQUIN 500 MG/D5W 500 MG/100 ML IVPB IV SCH (15:06)
--- NOTE | 2018-09-17 16:25 | GASTROENTEROLOGY PROGRESS NOTE ---
DATE: 09/17/2018 SUBJECTIVE: Patient resting in bed. He is sedated. He was combative this morning. He was given benzodiazepines and that helped him calm down. I spoke to the patient's nurse at bedside. The patient has no signs of any GI bleeding. He had 2 liquid brown stools. He is on lactulose. OBJECTIVE: Temperature 97.5 degrees, pulse of 80 respiratory rate 16, blood pressure 139/85 saturating 98% room air. Body weight of 159 pounds, 14.4 ounces. BMI of 24 kg. General: Patient is thinly built, moderately nourished, lying in bed, currently sedated. HEENT: HEENT positive pallor. Mild icterus. Neck: Supple. Abdomen: Soft, nontender. No guarding. Extremities: No cyanosis, clubbing. In the upper and lower extremity restraints. Neuro: Neuro lipscomb he is sedated. LABS: Hemoglobin and hematocrit 11.6 and 33.5, white count of 12.05 platelet count of 100,000. Sodium 140, potassium 3.9, chloride 110, bicarb 21, anion gap 10, BUN of 22, creatinine 0.9, glucose 106, calcium is 8.2, magnesium 1.9. Total bilirubin is 2.35 AST 72, ALT 41, alkaline phosphatase 99, total protein 6.6, albumin of 2.6. Toxicology screen positive for cannabis. Chest x-ray: Nasogastric tube in stomach. IMPRESSION AND PLAN: 1. Chronic hepatitis B and C, and chronic liver cirrhosis. This is being complicated with esophageal varices grade 3 and 4 and he had esophagogastroduodenoscopy with variceal banding done last week with Dr. Quintero. The patient also has portal hypertensive gastropathy and hepatic encephalopathy. We will continue on lactulose, Xifaxan. We will continue to trend the labs. He was combative and he is in restraints. I will start him on multivitamin once daily and banana bag. 2. Gastric ulcer in the gastric antrum seen on esophagogastroduodenoscopy recently, will continue Nexium twice daily. 3. History of ascites. Currently the abdomen feels soft. Continue to watch. 4. Noncompliance to medications aware. 5. History of drug abuse. The patient has quit IV drug abuse many years ago. 6. Elevated liver enzymes likely secondary to chronic hepatitis B and C, and liver cirrhosis. 7. Question of spontaneous bacterial peritonitis. He will continue on Levaquin once daily. He is also on Flagyl per the primary care team. 8. Gastrointestinal prophylaxis with Nexium twice daily. 9. Elevated INR and coagulopathy will continue vitamin K 10 mg IV once daily for 3 days. 10. Thrombocytopenia aware continue watch for now. 11. Malnutrition. We may have to start him on Clinimix. He has been NPO for the last 24 hours. 12. Above plan explained to the patient, nurse at bedside. All questions because answered. cc: MD Micah Castillo MD
[2018-09-18] MEDS: ATIVAN IV PRN ×5 (01:02→09:14)
[2018-09-18] MEDS: FLAGYL 500 MG/NS 500 MG/100 ML IVPB IV SCH ×4 (01:03→20:04)
[2018-09-18] MEDS: SODIUM CHLORIDE 0.9% INJ SCH ×2 (03:45→15:30)
[2018-09-18] MEDS: NEXIUM IV SCH ×2 (03:45→15:30)
[2018-09-18 06:41] LABS: BASO# 0.03 X1000 (0.0-0.2); BASO% 0.3 % (0.0-0.8); EOS% 1.1 % (0.0-10.0); HEMATOCRIT 31.7 % (42.0-52.0); HEMOGLOBIN 10.8 g/dL (14.0-18.0); IMM GRAN# 0.06 X1000 (0.0-0.04); IMM GRAN% 0.6 % (0.0-0.5); LYMPH# 1.27 X1000 (1.2-3.4); LYMPH% 13.7 % (20.5-51.1); MCHC 34.1 g/dL (33-37); MCV 99.7 FL (81-99); MONO% 11.9 % (1.7-9.3); NEUT# 6.71 X1000 (1.4-6.5); NEUT% 72.4 % (42.2-75.2); PLT 75 X1000 (130-400); RBC 3.18 XMIL (4.7-6.1); RDW 15.6 % (11.5-14.5); WBC 9.27 X1000 (4.8-10.8)
[2018-09-18 07:03] LABS: AGAP 9; ALB/GLOB RATIO 0.7; ALBUMIN 2.6 g/dL (3.5-5.0); ALKALINE PHOSPHATASE 100 U/L (32-122); BUN 21 mg/dL (8-22); CALCIUM 7.9 mg/dL (8.8-10.2); CHLORIDE 115 mmol/L (98-107); COSMO 290; ESTIMATED GFR > 60; GLUCOSE 94 mg/dL (70-104); GOT 77 U/L (10-34); GPT 43 U/L (10-44); POTASSIUM 3.9 mmol/L (3.5-5.1); SODIUM 144 mmol/L (136-145); TCO2 20 mmol/L (25-35); TOTAL BILIRUBIN 2.37 mg/dL (0.20-1.00); TOTAL PROTEIN 6.5 g/dL (6.3-8.3)
[2018-09-18] MEDS: XIFAXAN PO SCH ×2 (09:08→20:05)
[2018-09-18] MEDS: VITAMIN K 10 MG in NS 50 ML IV SCH (09:09)
[2018-09-18] MEDS: LACTULOSE PO SCH ×3 (09:09→17:08)
[2018-09-18 09:42] LABS: FREE T4 1.25 ng/dL (0.93-1.70); TSH 1.46 uIUmL (0.27-4.20)
[2018-09-18] MEDS: HALDOL IV PRN ×3 (10:13→22:47)
--- NOTE | 2018-09-18 11:15 | PROVIDER PROGRESS NOTE ---
Progress Note S: Patient had multiple BMs overnight with lactulose. No melena or rectal bleeding. He has also been getting ativan regularly overnight for agitation. This morning he is more alert for PRN, but still has some difficulty following commands. O: Last Vital Signs Temp 98.8 F 09/18/18 08:00 Pulse 109 H 09/18/18 10:01 Resp 30 H 09/18/18 10:01 BP 170/114 09/18/18 10:01 Pulse Ox 98 09/18/18 10:01 Height 5 ft 8 in Weight 160 lb GEN: lethargic, but arousable and follows simple commands HEENT: anicteric, NGT in place, EOMI NECK: supple, no JVD PULM: CTAB, no wheezing CV: tachycardic, regular ABD: soft NT/ND, NABS, difficult to appreciate ascites EXT: no cce NEURO: restrained, no obvious asterixis LABS: 09/18/18 09/18/18 06:20 06:20 WBC 9.27 Hgb 10.8 L Plt Count 75 L Sodium 144 Potassium 3.9 Chloride 115 H Carbon Dioxide 20 L Anion Gap 9 BUN 21 Creatinine 1.0 Magnesium 2.0 Total Bilirubin 2.37 H AST 77 H ALT 43 Alkaline Phosphatase 100 Total Protein 6.5 Albumin 2.6 L EGD 09/11 ESOPHAGUS: There were 4 columns of large (grade 3-4) varices in the lower third of the esophagus. The varices were not bleeding. Bleeding prevention was attempted by placing five bands with incomplete eradication. STOMACH: Mild portal hypertensive gastropathy was found. A single non- bleeding, clean-based and shallow ulcer ranging between 3-5 mm in size was found at the incisura. DUODENUM: The duodenum was normal. CT A/P without contrast 09/12 IMPRESSION: 1.Large volume ascites. 2.Advanced cirrhosis. 3.Splenomegaly. 4.Likely dilated varices in the epigastric region. 5.Thickened distal esophageal wall. Consider esophagitis or possibly underlying esophageal varices. 6.Other incidental/nonacute findings detailed above. A/P: Mr. Zachary Bolden is a 48 year old man with HCV and HBV cirrhosis c/b ascites and non-bleeding esophageal varices who was readmitted with hepatic encephalopathy likely secondary to reported lactulose non-compliance. He is not in acute liver failure. He has had some improved with lactulose via NGT. However, he continues to have some lethargic and agitation that has not improved with regular ativan. He has no history of alcoholism and has been in remission from drug use for years. I suspect he has more delirium now than anything else. Given the decreased clearance of ativan and narcotics in cirrhotic patients, I would discontinue benzos and given haldol prn for agitation. # Agitation - hold ativan - started haldol prn for agitation # HBV/HCV cirrhosis - PSE: on lactulose and rifaximin; titrate lactulose for 3 BMs daily, hold next dose for >=4 BMs in 24 hours - Cirrhosis: trend LFTs, INR daily - Ascites: none on exam; holding diuretics; on empiric abx for potential SBP; although low suspicion - EV: s/p EVL; no history of variceal bleed; repeat EGD in 2-3 weeks from prior EGD; avoid suctioning from NGT; he is at high risk for variceal bleeding - HCC: prior CT negative for hepatoma, AFP WNL, repeat US every 6 months - OLT: low meld - IMM: HAV immune status unknown; will likely need vaccination as outpatient # HBV: low viral replicator; will consider initiation of therapy given cirrhosis # HCV: 463K VL; unknown genotype; will address as outpatient # PUD: continue PPI BID # Severe protein calorie malnutrition: on Clinimix; NPO for now given AMS Will follow with you. Please call with questions
[2018-09-18] MEDS: M.V.I.-12 10 ML, FOLIC ACID 1 MG, MAGNESIUM SULFATE 1 GM, THIAMINE 100 MG in NS 1,000 ML IV SCH (11:24)
[2018-09-18] MEDS ORDERED: GEODON IM ONE (12:34)
[2018-09-18] MEDS ORDERED: STERILE WATER INJ. INJ ONE (12:34)
[2018-09-18] MEDS ORDERED: LABETALOL IV PRN (12:34)
--- NOTE | 2018-09-18 12:57 | PROGRESS NOTE ---
DATE: 09/18/2018 SUBJECTIVE: He is very agitated per nurse Catracho. He is a little bit more awake, but still very agitated trying to get out of bed. Dr. Quintero has discontinued Ativan because of concerns of over- sedation especially with his hepatic dysfunction, but he is still very agitated, trying to get out of bed. He is in four-point restraints. His speech is more intelligible as well. He is having steady bowel movements with the lactulose. OBJECTIVE: Blood pressure 170/114, heart rate of 109, respiratory rate of 30, and temperature 98.8 degrees.Cardiovascular: Regular rate and rhythm. Pulmonary: Bilateral breath sounds clear to auscultation. GI: Soft, nontender, and nondistended. I do not appreciate any ascites on exam. LABORATORY DATA: White count is 9, hemoglobin and hematocrit 10 and 31, platelets of 75,000, which has actually dropped since admission. T bilirubin is 2.37, AST of 77. PROBLEMS: 1. Hepatic encephalopathy which is improving slowly. We will continue lactulose and Xifaxan, and this is going to be a very close process. His ammonia levels, I do not see another one. He was 140, but those do not always necessarily correlate with symptoms so we are just going to continue to monitor for the time being. 2. Gastric ulcer. He is on a PPI. 3. Cirrhosis associated with hepatitis B and C. Obviously decompensated, but I do not see any ascites at this time. Continue to monitor. DISPOSITION: It is just kind of uncertain at this time until he is more awake and alert. Continue to monitor things closely. Appreciate GI input and follow closely. cc: Joaquín Chua MD
[2018-09-18] MEDS: GEODON IM PRN ×2 (14:26→20:04)
[2018-09-18] MEDS: STERILE WATER INJ. INJ PRN (14:27)
[2018-09-18] MEDS: CLINIMIX E 4.25%-5% SOLUTION 1,000 ML IV SCH ×2 (14:37→18:15)
[2018-09-18] MEDS: LEVAQUIN 500 MG/D5W 500 MG/100 ML IVPB IV SCH (15:30)
[2018-09-19] MEDS: LABETALOL IV PRN ×2 (00:16→08:18)
[2018-09-19] MEDS: GEODON IM PRN ×3 (01:16→20:38)
[2018-09-19] MEDS: FLAGYL 500 MG/NS 500 MG/100 ML IVPB IV SCH ×4 (02:29→21:08)
[2018-09-19] MEDS: NEXIUM IV SCH ×2 (04:21→14:44)
[2018-09-19] MEDS: SODIUM CHLORIDE 0.9% INJ SCH ×2 (04:21→14:44)
[2018-09-19 05:02] LABS: HEMOGLOBIN 10.7 g/dL (14.0-18.0); MCH 35.2 PG (27-31); MCHC 34.5 g/dL (33-37); MPV 11.5 FL (7.4-10.4); RBC 3.04 XMIL (4.7-6.1); RDW 15.4 % (11.5-14.5); WBC 6.13 X1000 (4.8-10.8)
[2018-09-19 05:06] LABS: AGAP 10; ALB/GLOB RATIO 0.7; ALBUMIN 2.7 g/dL (3.5-5.0); ALKALINE PHOSPHATASE 100 U/L (32-122); BUN 20 mg/dL (8-22); CALCIUM 8.3 mg/dL (8.8-10.2); CHLORIDE 112 mmol/L (98-107); COSMO 284; CREATININE 0.8 mg/dL (0.7-1.2); ESTIMATED GFR > 60; GLUCOSE 108 mg/dL (70-104); GOT 75 U/L (10-34); GPT 41 U/L (10-44); POTASSIUM 3.6 mmol/L (3.5-5.1); SODIUM 141 mmol/L (136-145); TCO2 19 mmol/L (25-35); TOTAL BILIRUBIN 1.68 mg/dL (0.20-1.00); TOTAL PROTEIN 6.5 g/dL (6.3-8.3)
[2018-09-19] MEDS: CLINIMIX E 4.25%-5% SOLUTION 1,000 ML IV SCH ×3 (06:24→20:38)
[2018-09-19] MEDS ORDERED: ALBUMIN 25% IV ONE (08:06)
[2018-09-19] MEDS: LACTULOSE PO SCH ×3 (08:09→21:08)
[2018-09-19] MEDS: XIFAXAN PO SCH ×2 (08:09→23:50)
[2018-09-19] MEDS: M.V.I.-12 10 ML, FOLIC ACID 1 MG, MAGNESIUM SULFATE 1 GM, THIAMINE 100 MG in NS 1,000 ML IV SCH (08:10)
--- NOTE | 2018-09-19 08:37 | PROVIDER PROGRESS NOTE ---
Progress Note S: No acute overnight events. Afebrile. Per RN, patient was AAOx3 this AM. He denies any abdominal pain. He has had copious BMs with non-bloody stools. O: Last Vital Signs Temp 98.0 F 09/19/18 08:00 Pulse 81 09/19/18 08:01 Resp 16 09/19/18 08:01 BP 153/102 09/19/18 08:01 Pulse Ox 99 09/19/18 08:01 Height 5 ft 8 in Weight 160 lb 3.2 oz GEN: lethargic, but arousable and follows simple commands HEENT: anicteric, NGT in place, EOMI NECK: supple, no JVD PULM: CTAB, no wheezing CV: RRR no murmurs ABD: soft NT/ND, NABS, difficult to appreciate ascites EXT: no cce NEURO: restrained, no obvious asterixis LABS: 09/19/18 09/19/18 04:30 04:30 WBC 6.13 Hgb 10.7 L Plt Count 58 L Sodium 141 Potassium 3.6 Chloride 112 H Carbon Dioxide 19 L BUN 20 Creatinine 0.8 Glucose 108 H Total Bilirubin 1.68 H AST 75 H ALT 41 Alkaline Phosphatase 100 Total Protein 6.5 Albumin 2.7 L A/P: Mr. Zachary Bolden is a 48 year old man with HCV and HBV cirrhosis c/b ascites and non-bleeding esophageal varices who was readmitted with hepatic encephalopathy likely secondary to reported lactulose non-compliance. We have held ativan and given haldol prn for agitation. This morning is slightly more awake and oriented. No asterixis. No ascites on exam. # Agitation - haldol prn for agitation # HBV/HCV cirrhosis - PSE: on lactulose and rifaximin; titrate lactulose for 3 BMs daily, hold next dose for >=4 BMs in 24 hours - Cirrhosis: stable LFTs: trend LFTs, INR daily - Ascites: none on exam; holding diuretics; on empiric abx for potential SBP; although low suspicion; will give 50gm IV albumin today as he is clinically dry - EV: s/p EVL; no history of variceal bleed; repeat EGD in 2-3 weeks from prior EGD on 09/11; avoid suctioning from NGT; he is at high risk for variceal bleeding - HCC: prior CT negative for hepatoma, AFP WNL, repeat US every 6 months - OLT: low meld - IMM: HAV immune status unknown; will likely need vaccination as outpatient # Anemia: stable; no overt bleeding # Thrombocytopenia: noted # PUD: continue PPI BID # Severe protein calorie malnutrition: on Clinimix; NPO for now given AMS; can start PO diet once patient is able to pass a bedside swallow evaluation Will follow with you. Please call with questions
[2018-09-19] MEDS ORDERED: CALMOSEPTINE OINTMENT TOP PRN (10:32)
[2018-09-19] MEDS: HALDOL IV PRN ×3 (11:04→21:36)
--- NOTE | 2018-09-19 11:44 | PROGRESS NOTE ---
DATE: 09/19/2018 SUBJECTIVE: The patient has no major complaints. He seems a little bit more restful per the nurse. He still seems pretty agitated to me. OBJECTIVE: Blood pressure 124/83, heart rate of 72, respiratory rate of 13, temperature 98 degrees. Cardiovascular: Regular rate and rhythm. Pulmonary: Bilateral breath sounds clear to auscultation. GI: Soft, nontender, nondistended. Bowel sounds were positive. Laboratory Data: White count 6, hemoglobin and hematocrit 10 and 31, platelets 58,000 which is very decreasing. Total bilirubin is down 1.68, AST 75. PROBLEM LIST: 1. Hepatic encephalopathy. He is on lactulose and Xifaxan. Slowly improving. We will continue to monitor. Gastroenterology is following. He does seem a little bit dehydrated to me at this point. 2. Gastric ulcer. We will continue proton pump inhibitor and follow closely. 3. Cirrhosis, hepatitis B and C, decompensated from the encephalopathy point. DISPOSITION: Pending clinical status. We will continue to monitor closely. He is still too agitated I think to really be able to go anywhere else for the time-being. cc: Joaquín Chua MD
[2018-09-19] MEDS: STERILE WATER INJ. INJ PRN ×2 (14:37→20:39)
[2018-09-19] MEDS: LEVAQUIN 500 MG/D5W 500 MG/100 ML IVPB IV SCH (14:44)
[2018-09-19] MEDS ORDERED: ATIVAN IV ONE (17:27)
[2018-09-20] MEDS: GEODON IM PRN ×2 (01:13→16:22)
[2018-09-20] MEDS: STERILE WATER INJ. INJ PRN ×2 (01:14→16:22)
[2018-09-20] MEDS: FLAGYL 500 MG/NS 500 MG/100 ML IVPB IV SCH ×4 (01:18→20:31)
[2018-09-20] MEDS: SODIUM CHLORIDE 0.9% INJ SCH ×2 (03:15→15:20)
[2018-09-20] MEDS: NEXIUM IV SCH ×2 (03:15→15:20)
[2018-09-20] MEDS: HALDOL IV PRN ×2 (03:16→16:09)
[2018-09-20 05:30] LABS: HEMATOCRIT 28.6 % (42.0-52.0); HEMOGLOBIN 10.3 g/dL (14.0-18.0); MCV 108.3 FL (81-99); MPV 11.4 FL (7.4-10.4); RBC 2.64 XMIL (4.7-6.1); RDW 17.2 % (11.5-14.5); WBC 5.63 X1000 (4.8-10.8)
[2018-09-20 05:44] LABS: MAGNESIUM 1.8 mg/dL (1.5-2.7); PHOSPHORUS 2.8 mg/dL (2.7-4.5)
[2018-09-20 06:10] LABS: AGAP 11; ALB/GLOB RATIO 0.9; ALKALINE PHOSPHATASE 85 U/L (32-122); BUN 18 mg/dL (8-22); CALCIUM 8.2 mg/dL (8.8-10.2); CHLORIDE 110 mmol/L (98-107); COSMO 282; CREATININE 0.7 mg/dL (0.7-1.2); ESTIMATED GFR > 60; GLUCOSE 116 mg/dL (70-104); GOT 60 U/L (10-34); GPT 34 U/L (10-44); POTASSIUM 3.7 mmol/L (3.5-5.1); SODIUM 140 mmol/L (136-145); TCO2 19 mmol/L (25-35); TOTAL BILIRUBIN 1.69 mg/dL (0.20-1.00); TOTAL PROTEIN 6.4 g/dL (6.3-8.3)
[2018-09-20] MEDS: M.V.I.-12 10 ML, FOLIC ACID 1 MG, MAGNESIUM SULFATE 1 GM, THIAMINE 100 MG in NS 1,000 ML IV SCH (09:00)
--- NOTE | 2018-09-20 12:13 | GASTROENTEROLOGY PROGRESS NOTE ---
DATE: 09/20/2018 please see next completed GI progress noted dated 09-20-18. cc: Alvarez Howard MD [facility]
--- NOTE | 2018-09-20 12:53 | GASTROENTEROLOGY PROGRESS NOTE ---
DATE: 09/20/2018 SUBJECTIVE: Patient is resting in bed. He is currently sleeping. I spoke to the patient's nurse at bedside the patient has been more awake per the nursing records, and he was able to eat. Per the records, he is having liquid brown stools. His ammonia has normalized. No fevers reported over the last 24 hours. OBJECTIVE: Vital Signs: Temperature 97.1 degrees, pulse rate 86, respiratory rate 14, blood pressure 130/82, saturating 100% on room air. Weight: Body weight of 162 pounds 4.8 ounces. BMI of 24.7 General Appearance: Thinly built, lying in bed, in no acute distress. He is sleeping at the moment. HEENT: Positive pallor. Mild icterus. Neck: Supple. Abdomen: Soft, nontender, nondistended. No guarding. Extremities: No cyanosis, clubbing. Extremities in restraints. Neurologic: He is sleeping. LABS: Hemoglobin and hematocrit are 10.3 and 28.6, white count of 5.63, platelet count of 54,000. Sodium of 140, potassium 3.7, chloride 110, bicarb 19, anion gap 11, BUN of 18, creatinine 0.7, glucose 116, calcium 8.2, phosphorus 2.8, magnesium 1.8. Total bilirubin 1.69, AST 60, ALT 34, alkaline phosphatase 85, total protein is 6.4, albumin of 3. Ammonia level is 29. IMPRESSION AND PLAN: 1. Chronic hepatitis C and hepatitis B cirrhosis. 2. Hepatic encephalopathy. Continue lactulose and Xifaxan. Titrate lactulose to 3 bowel movements daily. 3. Cirrhosis. Continue to follow liver enzymes and daily INRs. 4. Thrombocytopenia. Continue to watch for now and transfuse as needed. 5. Ascites. Continue to watch for ascites. 6. Esophageal varices, status post esophageal variceal ligation. He will have a repeat esophagogastroduodenoscopy with variceal ligation per Dr. Quintero every 2 to 3 weeks. 7. Agitation. He is on Haldol as needed. 8. Anemia. Continue to watch for now and transfuse as needed. 9. Peptic ulcer disease. Continue proton pump inhibitors twice a day. 10. Protein calorie malnutrition. He is on Clinimix. 11. He is on a clear liquid diet. We will continue to advance diet as tolerated. 12. Above plan of care was discussed with the patient's nurse and the primary care team, and all questions were answered. Please call us with any further questions. cc: Alvarez Howard MD [facility]
--- NOTE | 2018-09-20 14:20 | PROGRESS NOTE ---
DATE: 09/20/2018 INTERVAL HISTORY: Patient with significant agitation last night. Required a fair amount of Geodon. Somewhat sedated this morning. REVIEW OF SYSTEMS: Unable to obtain secondary to the patient's mental status. LABORATORY DATA: WBC 5.6, hemoglobin 10.3, hematocrit 28.6, platelets 54,000. Sodium 140, potassium 3.7, bicarb 19, BUN 18, creatinine 0.7, glucose 116. Total bilirubin 1.69, AST 60, ALT 34, alkaline phosphatase 85. OBJECTIVE: Vital Signs: T-max 97.9 degrees, pulse 82, respirations 13, blood pressure 123/93, O2 saturation 100% on room air. General: No acute distress. HEENT: Normocephalic, atraumatic. Moist mucous membranes. Mild pallor. Cardiovascular: Regular rate and rhythm. No murmurs noted. Pulmonary: Clear to auscultation bilaterally. Abdomen: Soft, nontender, nondistended. Bowel sounds positive. Extremities: Peripheral pulses in intact. No clubbing or cyanosis. Patient in restraints. Neurologic: The patient is quite somnolent. Arouses briefly to gentle stimuli, but falls back asleep immediately. Follows no commands. Does not attempt to converse currently. Occasional spontaneous movement of all extremities. Psychiatric: Remains encephalopathic and somewhat somnolent as above. Nonverbal currently. Skin: No new rashes or lesions identified. ASSESSMENT AND PLAN: 1. Metabolic/hepatic encephalopathy. Continue lactulose and Xifaxan. The patient has lost nasogastric tube access, so may have to give lactulose as enema. Will see if his mental status improves over the next couple of hours. Continue to monitor closely. 2. Cirrhosis, chronic hepatitis B and C. Liver function tests are roughly stable. Last INR only mildly elevated. Repeat pending. 3. Ascites. Pretty minimal at this point. No need for aggressive diuresis. 4. Esophageal varices. He has had banding in the past. Will avoid further nasogastric tube if we can. Plans for repeat esophagogastroduodenoscopy every 2 to 3 weeks. Watch for signs of bleeding, but given recent banding and encephalopathy, the patient is a poor candidate for further intervention. 5. Anemia and thrombocytopenia, likely related to liver disease. Platelets have trended down a little bit, but are roughly stable from yesterday. 6. Peptic ulcer disease. Continue proton pump inhibitor twice daily. 7. Protein calorie malnutrition. Patient on Clinimix. Will advance diet as he wakes up and tolerates. 8. Medical noncompliance. The patient did not take really any of his medications after last discharge. Will reinforce the importance of compliance once his mental status has improved.
[2018-09-20] MEDS ORDERED: MISC. PHARMACY COMMUNICATION SCH (15:00)
[2018-09-20] MEDS: XIFAXAN PO SCH ×2 (15:13→20:30)
[2018-09-20] MEDS: LACTULOSE PO SCH ×2 (15:13→20:30)
[2018-09-20] MEDS: LEVAQUIN 500 MG/D5W 500 MG/100 ML IVPB IV SCH (15:20)
[2018-09-20] MEDS ORDERED: NON-FORMULARY MED PR ONE (15:30)
[2018-09-20] MEDS: CLINIMIX E 4.25%-5% SOLUTION 1,000 ML IV SCH (16:09)
[2018-09-20] MEDS ORDERED: ATIVAN IV ONE (16:19)
[2018-09-21] MEDS: FLAGYL 500 MG/NS 500 MG/100 ML IVPB IV SCH ×4 (01:41→20:33)
[2018-09-21] MEDS: CLINIMIX E 4.25%-5% SOLUTION 1,000 ML IV SCH ×3 (02:45→20:33)
[2018-09-21] MEDS: NEXIUM IV SCH ×2 (04:52→14:59)
[2018-09-21] MEDS: SODIUM CHLORIDE 0.9% INJ SCH ×2 (04:52→14:59)
[2018-09-21 05:34] LABS: INR 2.06; PROTIME 24.7 Seconds (11.0-16.0)
[2018-09-21 05:35] LABS: AGAP 7; ALB/GLOB RATIO 0.8; ALBUMIN 2.6 g/dL (3.5-5.0); ALKALINE PHOSPHATASE 83 U/L (32-122); BUN 19 mg/dL (8-22); CALCIUM 8.1 mg/dL (8.8-10.2); CHLORIDE 112 mmol/L (98-107); COSMO 281; CREATININE 0.7 mg/dL (0.7-1.2); ESTIMATED GFR > 60; GLUCOSE 95 mg/dL (70-104); GOT 48 U/L (10-34); GPT 28 U/L (10-44); POTASSIUM 3.9 mmol/L (3.5-5.1); SODIUM 140 mmol/L (136-145); TCO2 21 mmol/L (25-35); TOTAL BILIRUBIN 1.27 mg/dL (0.20-1.00); TOTAL PROTEIN 5.9 g/dL (6.3-8.3)
[2018-09-21 05:48] LABS: HEMATOCRIT 27.6 % (42.0-52.0); HEMOGLOBIN 10.3 g/dL (14.0-18.0); MCH 41.2 PG (27-31); MCHC 37.3 g/dL (33-37); MCV 110.4 FL (81-99); MPV 12.2 FL (7.4-10.4); RBC 2.5 XMIL (4.7-6.1); RDW 19.6 % (11.5-14.5); WBC 8.27 X1000 (4.8-10.8)
[2018-09-21] MEDS: M.V.I.-12 10 ML, FOLIC ACID 1 MG, MAGNESIUM SULFATE 1 GM, THIAMINE 100 MG in NS 1,000 ML IV SCH (09:07)
[2018-09-21] MEDS: LACTULOSE PO SCH ×2 (09:07→20:33)
[2018-09-21] MEDS: XIFAXAN PO SCH ×2 (09:07→20:34)
--- NOTE | 2018-09-21 09:34 | PROGRESS NOTE ---
DATE: 09/21/2018 INTERVAL HISTORY: Patient with significant agitation yesterday. Broke out of restraints, was attempting to bite staff and pull at medical equipment. Had to be given fairly significant sedating medications. Does appear to be improving somewhat this morning. Still somnolent but arousable. Was reportedly following some commands with nursing this morning, although he is not for me at the time of my exam. He did arouse enough to tell me his name this morning, which is an improvement. REVIEW OF SYSTEMS: Unable to obtain secondary to the patient's mental status. LABORATORY DATA: WBC 8.2, hemoglobin 10.3, hematocrit 27.9, platelets 78,000. INR 2.0. Sodium 140, potassium 3.9, bicarb 21, BUN 19, creatinine 0.7, glucose 95, total bilirubin 1.2, AST 48, ALT 28, alkaline phosphatase 83. PHYSICAL EXAMINATION: Vital Signs: T-max 97.7 degrees, pulse 70, respirations 23, blood pressure 136/90, O2 saturation 98% on room air. General: No acute distress. HEENT: Normocephalic, atraumatic. Moist mucous membranes. Cardiovascular: Regular rate and rhythm. No murmurs noted. Pulmonary: Clear to auscultation bilaterally. No wheezing, rales, or rhonchi. Abdomen: Soft, nontender, minimally distended. Bowel sounds positive. Extremities: Peripheral pulse intact. No clubbing or cyanosis. Neurologic: The patient remains somnolent. Arousing slightly more today. Arouses long enough to state his name, but not really following commands for me this morning. Occasional spontaneous movement of all extremities. Psychiatric: Remains encephalopathic and significantly somnolent as above. Skin: No new rashes or lesions identified. ASSESSMENT AND PLAN: 1. Metabolic/hepatic encephalopathy. Continue lactulose and Xifaxan. Mental status does appear to be improving, although slowly and complicated with intermittent need for sedating medications because of patient aggression. We will continue to reorient him as much as possible and try to minimize sedating medications as we can. 2. Cirrhosis, chronic hepatitis B and C. Liver function tests roughly stable with slight down trend over the last several days. INR slightly further elevated. No signs or symptoms of bleeding currently, but monitor closely and will consider fresh frozen plasma and platelet transfusion if any signs of bleeding develop. Patient currently on Levaquin and Flagyl for possible SBP, but suspicion for that really quite low. Will let that go one more day but likely discontinue in the next day or two if no further problems develop. 3. Remains minimal. No need for aggressive diuresis. 4. Esophageal varices and peptic ulcer disease. Patient has had banding in the past. Avoiding further nasogastric tubes if at all possible. GI plans for repeat esophagogastroduodenoscopy every 2 to 3 weeks. Continue b.i.d., proton pump inhibitor, and monitor for signs of bleeding as above. 5. Anemia and thrombocytopenia likely related to liver disease. Platelets and blood counts roughly stable over the last several days. 6. Protein calorie malnutrition. Patient on Clinimix. We will advance diet once patient is consistently awake. 7. Medical noncompliance. The patient is not really taking his medications after last discharge. Once mental status is improved, we will strongly reinforce the importance of compliance. 8. The patient's overall long-term prognosis is quite poor but doing okay right now.
[2018-09-21] MEDS: LEVAQUIN 500 MG/D5W 500 MG/100 ML IVPB IV SCH (14:59)
[2018-09-21] MEDS: TYLENOL PO PRN (20:33)
--- NOTE | 2018-09-21 23:55 | PROVIDER PROGRESS NOTE ---
Progress Note S: No acute overnight events. Patient awake and oriented. He denies complaints. BMx3 yesterday. He admits to being noncompliant with medications at home. O: Last Vital Signs Temp 100.3 F H 09/21/18 20:01 Pulse 88 09/21/18 22:01 Resp 20 09/21/18 22:01 BP 93/68 09/21/18 22:01 Pulse Ox 100 09/21/18 22:01 Height 5 ft 8 in Weight 162 lb 14.4 oz GEN: sleepy but arousable, NAD, AAOx3 HEENT: anicteric, EOMI NECK: supple, no JVD PULM: CTAB, no wheezing CV: RRR no murmurs ABD: soft NT/ND, NABS, no obvious ascites EXT: no cce NEURO: restrained, no obvious asterixis LABS: 09/21/18 09/21/18 09/21/18 04:45 04:45 04:45 WBC 8.27 Hgb 10.3 L Plt Count 78 L D INR 2.06 Sodium 140 Potassium 3.9 Chloride 112 H Carbon Dioxide 21 L BUN 19 Creatinine 0.7 Total Bilirubin 1.27 H AST 48 H ALT 28 Alkaline Phosphatase 83 Total Protein 5.9 L Albumin 2.6 L A/P: Mr. Zachary Bolden is a 48 year old man with HCV and HBV cirrhosis c/b ascites and non-bleeding esophageal varices who was readmitted with hepatic encephalopathy likely secondary to med non-compliance. His PSE has improved significantly with supportive care. # HBV/HCV cirrhosis - PSE: on lactulose and rifaximin; titrate lactulose for 3 BMs daily, hold next dose for >=4 BMs in 24 hours - Cirrhosis: improving LFTs: trend LFTs, INR daily - Ascites: none on exam; holding diuretics; advance to low salt diet as tolerated; stop antibiotics - EV: s/p EVL on 09/11; no history of variceal bleed; repeat EGD in 2 weeks - HCC: prior CT negative for hepatoma, AFP WNL, repeat US every 6 months - OLT: low meld - IMM: HAV immune status unknown; will likely need vaccination as outpatient # Anemia: stable; no overt bleeding # Coagulopathy: INR 2.0; will given vitamin K 10mg IV x 3 days # Thrombocytopenia: stable # PUD: continue PPI BID # Severe protein calorie malnutrition: on Clinimix; advance diet as tolerated Will follow with you. Please call with questions
[2018-09-22] MEDS: TYLENOL PO PRN (02:53)
[2018-09-22] MEDS: NEXIUM IV SCH ×2 (02:57→16:39)
[2018-09-22 06:22] LABS: INR 2.18; PROTIME 25.9 Seconds (11.0-16.0)
[2018-09-22] MEDS: LACTULOSE PO SCH ×2 (08:10→22:17)
[2018-09-22] MEDS: VITAMIN K 10 MG in NS 50 ML IV SCH (08:10)
[2018-09-22] MEDS: CLINIMIX E 4.25%-5% SOLUTION 1,000 ML IV SCH (08:10)
[2018-09-22] MEDS: M.V.I.-12 10 ML, FOLIC ACID 1 MG, MAGNESIUM SULFATE 1 GM, THIAMINE 100 MG in NS 1,000 ML IV SCH (08:10)
[2018-09-22] MEDS: XIFAXAN PO SCH ×2 (08:10→22:17)
[2018-09-22 09:50] LABS: BASO# 0.05 X1000 (0.0-0.2); BASO% 0.5 % (0.0-0.8); EOS# 0.26 X1000 (0.0-0.7); EOS% 2.6 % (0.0-10.0); HEMATOCRIT 33.2 % (42.0-52.0); HEMOGLOBIN 11.3 g/dL (14.0-18.0); IMM GRAN# 0.14 X1000 (0.0-0.04); IMM GRAN% 1.4 % (0.0-0.5); LYMPH# 1.43 X1000 (1.2-3.4); LYMPH% 14.2 % (20.5-51.1); MCH 34.9 PG (27-31); MCV 102.5 FL (81-99); MONO# 1.31 X1000 (0.11-0.59); NEUT# 6.85 X1000 (1.4-6.5); NEUT% 68.3 % (42.2-75.2); PLT 99 X1000 (130-400); RBC 3.24 XMIL (4.7-6.1); WBC 10.04 X1000 (4.8-10.8)
[2018-09-22 10:11] LABS: AGAP 9; ALB/GLOB RATIO 0.7; ALBUMIN 2.6 g/dL (3.5-5.0); ALKALINE PHOSPHATASE 91 U/L (32-122); BUN 20 mg/dL (8-22); CALCIUM 7.9 mg/dL (8.8-10.2); CHLORIDE 110 mmol/L (98-107); COSMO 273; CREATININE 0.9 mg/dL (0.7-1.2); ESTIMATED GFR > 60; GLUCOSE 112 mg/dL (70-104); GOT 61 U/L (10-34); GPT 32 U/L (10-44); SODIUM 135 mmol/L (136-145); TCO2 16 mmol/L (25-35); TOTAL BILIRUBIN 1.57 mg/dL (0.20-1.00); TOTAL PROTEIN 6.3 g/dL (6.3-8.3)
[2018-09-22] MEDS: ULTRAM PO PRN (12:08)
[2018-09-22] MEDS: ZOFRAN IV PRN (12:09)
--- NOTE | 2018-09-22 14:29 | PROGRESS NOTE ---
DATE: 09/22/2018 INTERVAL HISTORY: The patient with a markedly improved mental status today. Out of restraints, awake, following commands and speaking coherently. No signs or symptoms of bleeding. No new complaints. REVIEW OF SYSTEMS: A 12-point review of systems negative, except as per interval history. LABS: WBC 10.0, hemoglobin 11.3, hematocrit 33.2, platelets 99. INR 2.18. Sodium 135, bicarbonate 16, total bilirubin 1.57. ALT was 61, ALT 32, alkaline phosphatase 91. VITALS: T-max 99.3 degrees, pulse 75, respirations 20, blood pressure 114/80, O2 saturation 97% on room air. PHYSICAL EXAMINATION: General: No acute distress. Vitals: As above. HEENT: Normocephalic, atraumatic. Moist mucous membranes. Neck: No cervical adenopathy. Cardiovascular: Regular rate and rhythm. No murmurs noted. Pulmonary: Clear to auscultation bilaterally. No wheezing, rales or rhonchi. Abdomen: Soft, nontender, minimally distended. Bowel sounds positive. Extremities: Peripheral pulses intact. No clubbing or cyanosis. Neurologic: Cranial nerves grossly intact. No focal deficits identified. Psychiatric: Encephalopathy almost entirely resolved. Awake, alert, following commands. Speech appropriate, oriented x3, although he had to correct himself a couple of times. Skin: No new rashes or lesions identified. ASSESSMENT AND PLAN: 1. Metabolic/hepatic encephalopathy. Markedly improved this morning. Continue lactulose and Xifaxan. We will try to avoid further sedating medications as much as possible. I will go ahead and move him to the floor. If he continues to remain stable, may be able to consider discharge in 24 to 48 hours. 2. Cirrhosis, chronic hep B and C. Liver test roughly stable. INR with slight up trend. No signs or symptoms of bleeding, but continue to monitor. Off of antibiotics as spontaneous bacterial peritonitis was becoming less and less likely. Discussed with family that long-term prognosis likely guarded in the absence of transplant, which would likely require clarification of his exact hepatitis status and treatment of that prior to being considered. Would also need to be compliant with medications. 3. Esophageal varices, peptic ulcer disease. Patient has had banding in the past. Continue twice daily proton pump inhibitor. Monitor for signs of bleeding. Gastroenterology plans for repeat esophagogastroduodenoscopy every 2 to 3 weeks. 4. Anemia and thrombocytopenia, primarily related to liver disease. Platelets and blood counts with some improvement today, but have been largely stable since admission. 5. Protein calorie malnutrition. Patient has been on Clinimix. Now that patient is awake, will begin feeding him and see how he does. Can likely discontinue Clinimix if he does well with that. 6. Medical noncompliance. The patient did not really take his medications after last discharge. Beginning to reinforce the importance of compliance to patient.
[2018-09-22] MEDS: NICODERM PATCH TD SCH (16:38)
--- NOTE | 2018-09-22 19:39 | PROVIDER PROGRESS NOTE ---
Progress Note S: No acute overnight events. Afebrile. Patient reports some abdominal discomfort from distension. No N/V/F, CP, SOB. Tolerating diet. +BMs, nonbloody. O: Last Vital Signs Temp 97.6 F 09/22/18 16:00 Pulse 102 H 09/22/18 16:00 Resp 18 09/22/18 16:00 BP 148/93 09/22/18 16:00 Pulse Ox 100 09/22/18 16:00 Height 5 ft 8 in Weight 163 lb GEN: NAD, AAOx3 HEENT: anicteric, EOMI NECK: supple, no JVD PULM: CTAB, no wheezing CV: RRR no murmurs ABD: soft NT, distended; BS present; probable ascites EXT: no cce NEURO: nonfocal, no asterixis LABS: 09/22/18 09/22/18 09/22/18 05:30 09:12 09:12 WBC 10.04 Hgb 11.3 L Plt Count 99 L INR 2.18 Sodium 135 L Potassium 4.0 Chloride 110 H Carbon Dioxide 16 L BUN 20 Creatinine 0.9 Glucose 112 H Total Bilirubin 1.57 H AST 61 H ALT 32 Alkaline Phosphatase 91 Total Protein 6.3 Albumin 2.6 L A/P: Mr. Zachary Bolden is a 48 year old man with HCV and HBV cirrhosis c/b ascites and non-bleeding esophageal varices who was readmitted with hepatic encephalopathy likely secondary to med non-compliance. His PSE has improved significantly with supportive care. # HBV/HCV cirrhosis - PSE: on lactulose and rifaximin; titrate lactulose for 3 BMs daily, hold next dose for >=4 BMs in 24 hours - Cirrhosis: stable LFTs: trend LFTs, INR daily - Ascites: low salt diet; I/O: recommend diagnostic and therapeutic paracentesis on Monday - EV: s/p EVL on 09/11; no history of variceal bleed; repeat EGD in 2 weeks - HCC: prior CT negative for hepatoma, AFP WNL, repeat US every 6 months - OLT: low meld - IMM: HAV immune status unknown; will likely need vaccination as outpatient # Anemia: stable; no overt bleeding # Coagulopathy: INR 2.18; receiving vitamin K # Thrombocytopenia: stable # PUD: continue PPI BID # Severe protein calorie malnutrition: stopped Clinimix; low NA diet Will follow with you. Please call with questions
[2018-09-22] MEDS ORDERED: ULTRAM PO SCH (21:00)
[2018-09-22] MEDS: NEXIUM PO SCH (22:16)
[2018-09-22] MEDS ORDERED: TUMS EXTRA STRENGTH PO PRN (23:25)
[2018-09-23] MEDS: ZOFRAN IV PRN (03:55)
[2018-09-23] MEDS: ULTRAM PO PRN (03:55)
[2018-09-23 07:19] LABS: BASO# 0.05 X1000 (0.0-0.2); BASO% 0.4 % (0.0-0.8); EOS# 0.28 X1000 (0.0-0.7); EOS% 2.5 % (0.0-10.0); HEMATOCRIT 33.6 % (42.0-52.0); HEMOGLOBIN 11.4 g/dL (14.0-18.0); IMM GRAN# 0.25 X1000 (0.0-0.04); IMM GRAN% 2.2 % (0.0-0.5); LYMPH# 1.33 X1000 (1.2-3.4); LYMPH% 11.7 % (20.5-51.1); MCH 34.1 PG (27-31); MCHC 33.9 g/dL (33-37); MCV 100.6 FL (81-99); MONO# 1.61 X1000 (0.11-0.59); MONO% 14.1 % (1.7-9.3); MPV 11.1 FL (7.4-10.4); NEUT# 7.87 X1000 (1.4-6.5); NEUT% 69.1 % (42.2-75.2); PLT 105 X1000 (130-400); RBC 3.34 XMIL (4.7-6.1); RDW 17.8 % (11.5-14.5); WBC 11.39 X1000 (4.8-10.8)
[2018-09-23 07:25] LABS: INR 2.01; PROTIME 24.2 Seconds (11.0-16.0)
[2018-09-23 07:48] LABS: AGAP 11; ALB/GLOB RATIO 0.8; ALKALINE PHOSPHATASE 109 U/L (32-122); BUN 19 mg/dL (8-22); CALCIUM 8.7 mg/dL (8.8-10.2); CHLORIDE 106 mmol/L (98-107); COSMO 276; CREATININE 0.9 mg/dL (0.7-1.2); ESTIMATED GFR > 60; GLUCOSE 100 mg/dL (70-104); GOT 101 U/L (10-34); GPT 46 U/L (10-44); SODIUM 137 mmol/L (136-145); TCO2 20 mmol/L (25-35); TOTAL PROTEIN 6.8 g/dL (6.3-8.3)
[2018-09-23] MEDS: M.V.I.-12 10 ML, FOLIC ACID 1 MG, MAGNESIUM SULFATE 1 GM, THIAMINE 100 MG in NS 1,000 ML IV SCH (11:06)
[2018-09-23] MEDS: VITAMIN K 10 MG in NS 50 ML IV SCH (11:07)
[2018-09-23] MEDS: NICODERM PATCH TD SCH (11:19)
[2018-09-23] MEDS: XIFAXAN PO SCH (11:19)
[2018-09-23] MEDS: NEXIUM PO SCH (11:19)
[2018-09-23] MEDS: LACTULOSE PO SCH (11:19)
[2018-09-23 11:37] VITALS: BP 135/100
--- NOTE | 2018-09-23 14:23 | DISCHARGE SUMMARY ---
ADMISSION DATE: 09/16/2018 DISCHARGE DATE: 09/23/2018 PRIMARY CARE PROVIDER: None. PERTINENT PROCEDURES: 1. Head CT negative exam. 2. Initial chest x-ray showed NG tube in good position. DISCHARGE DIAGNOSES: 1. Metabolic hepatic encephalopathy, markedly improved. The patient will continue on lactulose and Xifaxan. 2. Cirrhosis, chronic hepatitis B and C. Liver tests stable. INR is staying steady at around 2. No signs or symptoms of bleeding. 3. Esophageal varices, peptic ulcer disease. Patient has had banding in the past. He will continue on a proton pump inhibitor b.i.d. Monitor for signs of bleeding. He was followed by gastroenterology. They plan am esophagogastroduodenoscopy repeat in 2 to 3 weeks. 4. Anemia and thrombocytopenia related to liver disease. Counts have improved some and are largely stable since admission. 5. Protein calorie malnutrition. Patient was on Clinimix. 6. Medical noncompliance. The patient has not taken any of his medications after his last discharge. They did education and reinforced the importance of compliance with his medications. 7. Ascites secondary to his cirrhosis. The patient did have some more distention in his abdomen today. However, he refuses a therapeutic paracentesis, so he will continue on diuretics and has been okay to discharge per Dr. Quintero. HOSPITAL COURSE: Briefly, Mr. Bolden is a 48-year-old male with past medical history of hepatitis B and C, presumed secondary to IV drug history. He was discharged on 09/13/2018, was prescribed lactulose along with some other medications, which according to the family he was not taking them. He was also given diuretics that he never took. He was brought in by family for increase in confusion and using a lot of profanity. Upon arrival to the ED he was given multiple doses of Ativan, Haldol and Geodon because he was swinging at the nurses very combative, very loud, disruptive to other patients. He was admitted and watched closely in the ICU where he remained encephalopathic for several days. He was followed by gastroenterology, placed on Clinimix for severe protein calorie malnutrition. Initially, he was placed on empiric antibiotics for potential for spontaneous bacterial peritonitis. However, that has been completely ruled out with medications. His metabolic and hepatic encephalopathy have slowly resolved. He was able to move out of the ICU to the regular floor. He has refused to have a therapeutic paracentesis. He will be discharged home on diuretics and to follow up with GI. VITAL SIGNS: At time of discharge, temperature is 98.1 degrees, heart rate 112, respirations 18, blood pressure 135/100, O2 is 100% on room air. DISCHARGE DIET: Healthy heart with Ensure. DISCHARGE MEDICATIONS: 1. Aldactone 50 mg p.o. daily. 2. Lactulose 30 mL p.o. b.i.d. 3. Lasix 40 mg p.o. daily. 4. NicoDerm patch 21 mg TD daily. 5. Protonix 40 mg p.o. b.i.d. 6. Xifaxan 550 mg p.o. b.i.d. FOLLOWUP: Mr. Bolden is being discharged back home. He has been re-educated on reported importance of taking his medications. He is to follow up with GI as an outpatient for repeat EGD, possible need for paracentesis in the future. He can return to the ED or call 911 for any worsening of symptoms. Dictated by SAM Jovel for Prem Mcleod MD Agree with the above. the following is my own face to face assessment. encephalopathy resolved. patient AAOx3 on exam. slightly increased distention but no discomfort or tenderness on abdominal exam. patient resuming diuretics at discharge. strongly counseled on the importance of compliance. discharging to his brother's house, who plans on assisting him. [facility]
--- NOTE | 2018-09-23 23:41 | PROVIDER PROGRESS NOTE ---
Progress Note S: No acute overnight events. He reports some abdominal discomfort from ascites. No other complaints. +BMs x2 yesterday. O: Last Vital Signs Temp 98.1 F 09/23/18 11:36 Pulse 112 H 09/23/18 11:36 Resp 18 09/23/18 11:36 BP 135/100 09/23/18 11:36 Pulse Ox 100 09/23/18 11:36 Height 5 ft 8 in Weight 187 lb GEN: NAD, AAOx3 HEENT: anicteric, EOMI NECK: supple, no JVD PULM: CTAB, no wheezing CV: RRR no murmurs ABD: soft NT, distended; BS present; + ascites EXT: no cce NEURO: nonfocal, no asterixis LABS: 09/22/18 09/22/18 09/22/18 05:30 09:12 09:12 WBC 10.04 Hgb 11.3 L Plt Count 99 L INR 2.18 Sodium 135 L Potassium 4.0 Chloride 110 H Carbon Dioxide 16 L BUN 20 Creatinine 0.9 Glucose 112 H Total Bilirubin 1.57 H AST 61 H ALT 32 Alkaline Phosphatase 91 Total Protein 6.3 Albumin 2.6 L A/P: Mr. Zachary Bolden is a 48 year old man with HCV and HBV cirrhosis c/b ascites and non-bleeding esophageal varices who was readmitted with hepatic encephalopathy likely secondary to med non-compliance. His PSE has improved significantly with supportive care. He has symptomatic ascites, but does not want to stay in hospital for LVP tomorrow. Will restart diuretics upon discharge. # HBV/HCV cirrhosis - PSE: on lactulose and rifaximin; titrate lactulose for 3 BMs daily, hold next dose for >=4 BMs in 24 hours - Cirrhosis: stable LFTs: trend LFTs, INR daily - Ascites: low salt diet; I/O: restart home diuretics - EV: s/p EVL on 09/11; no history of variceal bleed; repeat EGD in 2 weeks - HCC: prior CT negative for hepatoma, AFP WNL, repeat US every 6 months - OLT: low meld - IMM: HAV immune status unknown; will likely need vaccination as outpatient # Anemia: stable; no overt bleeding # Coagulopathy: s/p vitamin K # Thrombocytopenia: stable # PUD: continue PPI BID # Severe protein calorie malnutrition: stopped Clinimix; low NA diet Patient discharged. Follow-up in GI clinic in 2 weeks. Please call with questions
== END 2018-09-23 12:41 | disposition home or self-care (01) | DRG 432 ==
LOC: SUPCPDRO → ED 17:27 → SUATTDRO 09-16 06:26 → ICU 09-16 06:26 → 3N 09-22 09:43
PROVIDERS: ATTEND Internal Medicine
CPT/HCPCS: 36569; 51702; 70450; 71010; 71045; 80053; 80101; 80196; 80301; 80307; 80320; 80324; 80329; 80345; 80346; 80353; 80358; 80361; 80365; 81001; 82003; 82055; 82140; 82607; 82746; 82948; 83735; 83992; 84100; 84439; 84443; 85025; 85027; 85610; 93005; 96372; 99285; A9270; G0431; G0434; G0479; G0480; G6038; G6039; G6040; J1200; J1630; J1956; J2060; J2405; J3411; J3430; J3475; J3486; J7030; J7042; J7050; P9047; S0030; XXXXX

== ENCOUNTER 2018-10-05 21:29 | Inpatient (IN) ==
[2018-10-05] MEDS ORDERED: GEODON IM ONE (21:35)
[2018-10-05] MEDS ORDERED: STERILE WATER INJ. INJ ONE (21:35)
[2018-10-05 22:06] LABS: URINE SOURCE CATH
--- NOTE | 2018-10-05 22:14 | PROVIDER DOCUMENTATION ---
This chart was entered by Eunice Arias Scribe, acting as scribe for Vonnie Bird MD. HPI-General Adult - General Chief Complaint: Altered Mental Status Stated Complaint: ams Time Seen by Provider: 10/05/18 21:35 Source: RN/MD Allergies/Adverse Reactions: Patient Allergies Allergy/AdvReac Type Severity Reaction Status Date / Time No Known Allergies Allergy Verified 10/05/18 22:37 Home Medications: Home Medication List Medication Instructions Recorded Confirmed Last Taken Type Furosemide [Lasix] 40 mg PO DAILY #90 tab 09/13/18 10/05/18 Unknown Rx Lactulose 30 ml PO BID #60 udc 09/13/18 10/05/18 Unknown Rx Nicotine Patch [Nicoderm Patch] 21 mg TD DAILY patch.[id number] 09/13/18 10/05/18 Unknown Rx Pantoprazole [Protonix] 40 mg PO BID #60 tab 09/13/18 10/05/18 Unknown Rx Rifaximin [Xifaxan] 550 mg PO BID #60 tab 09/23/18 10/05/18 Unknown Rx Spironolactone [Aldactone] 50 mg PO DAILY #90 tab 09/23/18 10/05/18 Unknown Rx - History of Present Illness -Gen Adult Nature of Presenting Problems: 48 yowm presents to ed w/cc md is historian due to pt condition. pt was okay this am but as day progressed became altered, combative and started yelling. pt was tx in er 7-31 but left ama. pt has hx of alcoholism, cirrosis, hep B & C. Location of Pain/Injury: reports: none Pain Radiation: reports: no radiation Quality of Pain: reports: none Severity: reports: mild Onset/Duration: reports: other (this morning becoming altered as day progressed) Timing: reports: still present Context/Activities at Onset: reports: none Modifying Factors: improves with: nothing Review of Systems - Adult - REVIEW OF SYSTEMS - ADULT Constitutional: reports: no symptoms reported. denies: fever, fatique, night s weats Eyes: reports: no symptoms reported Ears, Nose, Mouth & Throat: reports: no symptoms reported Cardiovascular: reports: no symptoms reported Respiratory: reports: no symptoms reported Gastrointestinal: reports: no symptoms reported Genitourinary: reports: no symptoms reported Musculoskeletal: reports: no symptoms reported Integumentary: reports: no symptoms reported Neurological: reports: no symptoms reported Psychiatric: reports: see HPI, other (ams, altered, shouting, combative). denies: insomnia, panic attacks, suicidal thoughts Endocrine: reports: no symptoms reported Hematologic/Lymphatic: reports: no symptoms reported Allergic/Immunologic: reports: no symptoms reported All Other Systems: Reviewed and Negative Past History - Adult - PAST MEDICAL HISTORY-ADULT Review of Records: reports: Old Records Reviewed, Nursing Assessment Review, Medications Reviewed, Social history reviewed & non-contributory. Major Childhood Illnesses: reports: denies history Cardiovascular: reports: HTN Respiratory: reports: denies history Gastrointestinal: reports: hepatitis (b & c), liver disease, other (spleen enlargement) Obstetrical/Gynecological: reports: denies history Genitourinary: reports: denies history Musculoskeletal: reports: denies history Neurological: reports: denies history Endocrine/Immune: reports: denies history Other Conditions: reports: denies history - PRIOR SURGERIES/PROCEDURES Surgical/Procedure History: reports: other - IMMUNIZATION STATUS Childhood Immunizations: See Nurse Assessment Flu Vaccine: See Nurse Assessment - FAMILY HISTORY Family History: reviewed, not pertinent - SOCIAL HISTORY Smoking: cigarettes, less than 1 pack/day Provider spent 3-5 mins advising pt. on dangers of tobacco.: Discussed manners to quit use, and f/u contacts for add'l counseling. Substance Use: alcohol Physical Exam-General - PHYSICAL EXAM-ADULT Initial Vital Signs Reviewed: Yes - CONSTITUTIONAL General Appearance: moderate distress, anxious, combative, other (shouting in er, pt is restrained). negative: cachetic, lethargic, slow to respond, obtunded - EYES Eyes: PERRL/EOMI, pink conjunctivae - HEAD, EARS, NOSE, MOUTH & THROAT HENMT: normocephalic/atraumatic, moist mucous membranes, normal ENT inspection - NECK Neck: non-tender, full range of motion, supple, normal inspection - RESPIRATORY Respiratory: chest non-tender, lungs clear, normal breath sounds - CARDIOVASCULAR Cardiovascular: normal peripheral pulses, regular rate, rhythm - GASTROINTESTINAL (ABDOMEN) Abdominal Exam: normal bowel sounds, non tender, soft, no organomegaly, no pul satile mass, other (ascities). negative: guarding, rigid, rebound, tenderness - LYMPHATIC Lymphatic: no adenopathy - MUSCULOSKELETAL Back Exam: normal inspection, no CVA tenderness, no vertebral tenderness Extremity: non-tender, normal inspection. negative: normal range of motion (restrained), pedal edema, swelling, tenderness Peripheral Pulses: radial (R): 2+, radial (L): 2+ - SKIN Integumentary: normal color, normal turgor, warm/dry - NEUROLOGIC Neurologic: grossly normal, no motor/sensory deficits - PSYCHIATRIC Psych/Mental Status: disoriented x 3, anxious, disheveled, paranoid. negative: normal mood/affect, normal thought content, normal thought process, oriented x 3, depressed affect, tearful Progress - PLAN OF CARE/RESULTS Progress/Plan/Lab Results: Orders Category Date Time Status ALCOHOL BLOOD Stat Lab 10/05/18 21:39 Uncollected AMMONIA [CHEM] Stat Lab 10/05/18 21:39 Uncollected CBC WITH ELECTRONIC DIFF [HEME] Stat Lab 10/05/18 21:39 Uncollected COMPREHENSIVE METABOLIC PANEL [CHEM] Stat Lab 10/05/18 21:39 Uncollected URINALYSIS W/POSS RFLX CULT [URINALYSIS] Stat Lab 10/05/18 21:39 Uncollected URINE DRUG SCREEN Stat Lab 10/05/18 21:39 Uncollected Water, Sterile Inj [Sterile Water Inj] Med 10/05/18 21:35 Discontinued 1.2 ml INJ NOW ONE Ziprasidone [Geodon] Med 10/05/18 21:35 Discontinued 20 mg IM NOW ONE Result Diagrams: 10/05/18 22:20 10/05/18 22:20 - REASSESSMENT Reassessment #1 Time Reassessed: 00:45 Status: improving (pt sedated. labs reviewed. will d/w hospitalist) - EKG 1 Time of EKG reading by physician:: 22:38 EKG Read and Signed by:: Vonnie Bird EKG Interpretation (*Must complete 3 of following elements*): Abnormal Rate: 104 Rhythm: ST [place]: right QRS: normal [place] Interval: normal ST Wave: normal Comments: nonspecific intraventricular block 2 Time of EKG reading by physician:: 23:20 EKG Read and Signed by:: Vonnie Bird EKG Interpretation (*Must complete 3 of following elements*): Abnormal Rate: 109 [place]: left (LAD) QRS: LBB [place] Interval: normal ST Wave: normal - CONSULTS/PCP/HOSPITALIST Notification #1 *Consult/PCP/Hospitalist*: DR. Kevin/ hospitalist Time Discussed: 01:48 Consult Disposition: Admit (will admit pt) Departure - Departure Date of Disposition Decision: 10/06/18 Time of Disposition Decision: 01:37 DIAGNOSIS: Encephalopathy acute, Altered mental state, Cirrhosis of liver Disposition: ADMITTED INPATIENT 09 Certified Medical Emergency: Emergent Condition: Stable Referrals and Follow-Ups: None,PCP [Primary Care Provider] - - Critical Care Note This patient required my direct & personal management of CC.: Yes Total Time (mins): 35 Critical Care Statement: This patient required my direct personal management to treat or rule out processes, the absence of which, could potentiallly result in sudden, clinically significant life or limb threatening deterioration. Attestation - Physician/ DIANA Attestation Patient care was provided by Advanced Practice Provider:: No The physician spent face to face time with patient:: Yes Advanced Practice Provider documentation review:: Supervising physician onsite and consulted in the evaluation and care of this patient. The physician did have a face to face encounter with the patient. This chart was documented by the indicated scribe, (Eunice Arias Scribe) and accurately reflects the services I performed and decisions made by me, Vonnie Duong MD, as attested by the provider's signature.
[2018-10-05 22:22] LABS: BILIRUBIN URINE NEGATIVE (NEGATIVE); BLOOD URINE MODERATE (NEGATIVE); COLOR YELLOW; GLUCOSE URINE NEGATIVE (NEGATIVE); KETONE URINE TRACE mg/dL (NEGATIVE); LEUKOCYTES URINE TRACE (NEGATIVE); NITRITE URINE NEGATIVE (NEGATIVE); PH URINE 5.5; PROTEIN URINE 30 mg/dL (NEGATIVE); SP GRAVITY URINE 1.021; TURBIDITY URINE HAZY (CLEAR); UROBILINOGEN URINE 2 mg/dL (NORMAL)
[2018-10-05 22:24] LABS: UR AMPHETAMINES QUAL NONE DETECTED (NONE DETECT); UR BARBITUATES QUAL NONE DETECTED (NONE DETECT); UR BENZODIAZEPIN QUAL NONE DETECTED (NONE DETECT); UR CANNABINOIDS QUAL PRESUMPTIVE POSITIVE (NONE DETECT); UR COCAINE QUAL NONE DETECTED (NONE DETECT); UR METHADONE QUAL NONE DETECTED (NONE DETECT); UR OPIATES QUAL PRESUMPTIVE POSITIVE (NONE DETECT); UR OXYCODONE QUAL PRESUMPTIVE POSITIVE (NONE DETECT); UR PCP QUAL NONE DETECTED (NONE DETECT)
[2018-10-05 22:42] LABS: BASO# 0.03 X1000 (0.0-0.2); BASO% 0.6 % (0.0-0.8); EOS# 0.05 X1000 (0.0-0.7); EOS% 0.9 % (0.0-10.0); HEMATOCRIT 31.4 % (42.0-52.0); HEMOGLOBIN 10.4 g/dL (14.0-18.0); LYMPH# 0.67 X1000 (1.2-3.4); LYMPH% 12.3 % (20.5-51.1); MCHC 33.1 g/dL (33-37); MCV 105.7 FL (81-99); MONO# 0.58 X1000 (0.11-0.59); MONO% 10.6 % (1.7-9.3); NEUT# 4.12 X1000 (1.4-6.5); NEUT% 75.6 % (42.2-75.2); PLT 108 X1000 (130-400); RBC 2.97 XMIL (4.7-6.1); RDW 16.9 % (11.5-14.5); WBC 5.45 X1000 (4.8-10.8)
[2018-10-05 22:59] LABS: ALB/GLOB RATIO 0.7; ALBUMIN 2.7 g/dL (3.5-5.0); CALCIUM 8.6 mg/dL (8.8-10.2); CREATININE 2.2 mg/dL (0.7-1.2); POTASSIUM 3.9 mmol/L (3.5-5.1); TOTAL BILIRUBIN 2.33 mg/dL (0.20-1.00); TOTAL PROTEIN 6.7 g/dL (6.3-8.3)
[2018-10-05 23:14] LABS: UR EPITHELIAL CELLS <10 /HPF (<10); URINE BACTERIA NEGATIVE /HPF; URINE RBC >40 /HPF (<10); URINE WBC <10 /HPF (<10)
[2018-10-05] MEDS ORDERED: ATIVAN IV ONE (23:18)
--- NOTE | 2018-10-06 02:55 | EKG Report ---
Test Performed on : 10/05/2018 11:20:29 PM Test Reason : AMS Blood Pressure : / mmHG Vent. Rate : 109 BPM Atrial Rate : 109 BPM P-R Int : 140 ms QRS Dur : 152 ms QT Int : 394 ms P-R-T Axes : 018 -31 126 degrees QTc Int : 530 ms Sinus tachycardia. Left axis deviation Left bundle branch block Abnormal ECG When compared with ECG of 05-OCT-2018 22:38, (Unconfirmed) QRS axis shifted left T wave inversion no longer evident in Inferior leads T wave inversion more evident in Lateral leads Unconfirmed Result
--- NOTE | 2018-10-06 03:00 | EKG Report ---
Test Performed on : 10/05/2018 10:38:13 PM Test Reason : AMS Blood Pressure : / mmHG Vent. Rate : 104 BPM Atrial Rate : 104 BPM P-R Int : 138 ms QRS Dur : 152 ms QT Int : 426 ms P-R-T Axes : 033 096 -61 degrees QTc Int : 560 ms Sinus tachycardia. Rightward axis Nonspecific intraventricular block Abnormal ECG When compared with ECG of 26-SEP-2018 23:36, (Unconfirmed) Questionable change in QRS axis T wave inversion now evident in Inferior leads T wave inversion less evident in Lateral leads Unconfirmed Result
[2018-10-06 03:34] LABS: INR 1.7; PROTIME 20.4 Seconds (11.0-16.0)
[2018-10-06] MEDS ORDERED: LACTULOSE ONE (05:00)
[2018-10-06] MEDS ORDERED: TYLENOL PR PRN (06:23)
--- NOTE | 2018-10-06 07:05 | Diag Imaging Result Doc PS360 ---
EXAM: CHEST-PORTABLE 10/06/2018 HISTORY: AMS,Fall TECHNIQUE: AP portable at 0609 COMMENT: There is bibasilar platelike atelectasis. This is worse on the left than on 09/26/2018. There is hazy interstitial opacity bilaterally particularly in the right lung which was not the case previously. IMPRESSION: Worsened atelectasis in the left lower lobe and pulmonary edema. Electronically signed by David Rincon 10/06/2018 7:03 AM
[2018-10-06] MEDS ORDERED: VITAMIN K 10 MG in NS 50 ML IV ONE (08:30)
[2018-10-06 08:38] LABS: BASO# 0.01 X1000 (0.0-0.2); BASO% 0.2 % (0.0-0.8); EOS# 0.03 X1000 (0.0-0.7); EOS% 0.6 % (0.0-10.0); HEMATOCRIT 31.4 % (42.0-52.0); HEMOGLOBIN 10.5 g/dL (14.0-18.0); LYMPH# 0.72 X1000 (1.2-3.4); LYMPH% 13.7 % (20.5-51.1); MCH 35.2 PG (27-31); MCHC 33.4 g/dL (33-37); MCV 105.4 FL (81-99); MONO# 0.55 X1000 (0.11-0.59); MONO% 10.4 % (1.7-9.3); MPV 11.1 FL (7.4-10.4); NEUT# 3.96 X1000 (1.4-6.5); NEUT% 75.1 % (42.2-75.2); PLT 74 X1000 (130-400); RBC 2.98 XMIL (4.7-6.1); WBC 5.27 X1000 (4.8-10.8)
[2018-10-06 08:49] LABS: ALB/GLOB RATIO 0.6; ALBUMIN 2.6 g/dL (3.5-5.0); CALCIUM 8.5 mg/dL (8.8-10.2); CREATININE 1.7 mg/dL (0.7-1.2); POTASSIUM 3.8 mmol/L (3.5-5.1); TOTAL BILIRUBIN 1.98 mg/dL (0.20-1.00); TOTAL PROTEIN 6.6 g/dL (6.3-8.3)
[2018-10-06] MEDS: PROTONIX IV SCH (08:50)
[2018-10-06] MEDS: ROCEPHIN 1 GM in NS 50 ML IV SCH (08:50)
[2018-10-06] MEDS: LASIX IV SCH (08:50)
[2018-10-06] MEDS: SODIUM CHLORIDE 0.9% INJ SCH (08:50)
[2018-10-06] MEDS: HALDOL IV PRN ×5 (08:51→18:06)
--- NOTE | 2018-10-06 08:51 | HISTORY AND PHYSICAL ---
PRIMARY CARE PROVIDER: I do not think the patient has a primary care provider, though he was supposed to follow up with Dr. Quintero with Gastroenterology upon his most recent discharge according to his discharge packet. DATE AND TIME: 10/06/2018 at 0330. CHIEF COMPLAINT: Altered mental status. HISTORY OF PRESENT ILLNESS: Mr. Bolden is a 48-year-old male with a past medical history of liver cirrhosis, ascites, hepatitis B and hepatitis C. He also is noted to have a history of esophageal varices as well. From what I understand, there is a question of possible previous drug abuse, as well as the patient was incarcerated for approximately 10 years. Most recently, he was admitted and discharged on 09/23/2018. During this admission, he was treated for metabolic hepatic encephalopathy and was discharged home with medications of lactulose and Xifaxan, though according to his history and physical upon this admission, it was noted that the patient has had some issues with medical noncompliance. He has not been taking his prescribed medications such as his Xifaxan, the lactulose or his Lasix. According to the ER notes and report, the patient arrived to the ER yesterday evening, 10/05/2018 at 2129 hours. According to EMS, the patient was altered. He was combative. There was family at bedside that stated that he may have been admitted or was treated in [facility] earlier this week and did have fluid drained from his abdomen. The patient does have a history of having to have previous paracentesis. According to the ER notes, he arrived altered. The patient was combative, screaming, yelling, hitting at staff. There was mention of a history of IV drug abuse and daily alcohol abuse, though at this time I am unsure if the patient is currently using any illicit drugs or alcohol. Unfortunately due to his combativeness and agitation, the patient did have to be given sedated medicines of Geodon and Ativan. He has since been placed in four-point restraints as well. The patient's nurse in the ER did report to me that his ex- who was present previously at bedside did report she was with him today and at some point he reportedly tripped and fell. She states that he hit his chest, though I do not have any family at bedside to answer any questions or assist with his history of present illness. I am unsure during this fall if he had any other reported injuries or may have hit his head. The patient at this time is only minimally responsive to a sternal rub with just some slight movement and grunting. In the ER, the patient was noted to be slightly anemic, platelet count is 108, INR is 1.7, PT 20.4. Chemistries revealed he has an acute kidney injury with a creatinine of 2.2, BUN of 26 and a GFR of 32. Liver function tests were elevated as well. Magnesium was 1.9. Urine drug screen was positive for opiate, oxycodone and marijuana. Serum alcohol was zero. Urinalysis did reveal moderate blood, trace leukocytes. Given his altered mental status and reported fall, and having an unclear picture of what may have happened to the patient prior to his arrival, we did go ahead and perform a CT of the head without contrast, as well as a portable chest x-ray. The overnight radiologist report noted that there was a linear increased attenuation in the lateral aspect of the right temporal lobe that is probably artifact. However, a small amount of acute subarachnoid hemorrhage is not ruled out. They did recommend follow-up. We are going to have our radiologist over-read this as well. He has been placed in ICU. He is receiving continuous cardiac and pulse oximetry. He also is receiving frequent vital signs and neurological checks. I am awaiting a chest x-ray to become complete at this time. It does appear as though it has been taken, although I am not able to view the film in the computer at this time. I will follow up with this. The patient's pupils are 3 mm bilaterally, equal, round and react to light. They were slightly sluggish. Lung sounds were clear to auscultation in bilateral full cummins. Unfortunately at this time due to the patient's current condition and mentation, a review of systems is unable to be performed with him. He has been placed for inpatient admission. REVIEW OF SYSTEMS: Unfortunately, due to the patient's current condition and mentation, a review of systems was unable to be performed of the patient. PAST MEDICAL HISTORY: 1. Liver cirrhosis. 2. Chronic hepatitis B. 3. Chronic hepatitis C. Reported history of drug abuse. 4. History of being incarcerated for approximately 10 years. 5. Esophageal varices. 6. Medical noncompliance. 7. Hypertension. 8. History of kidney stones. 9. History of having a broken sternum, though did not require surgical intervention. PAST SURGICAL HISTORY: The patient has no known previous surgical history. SOCIAL HISTORY: There is mention in previous history and physical and consultation that the patient has possible IV drug abuse and alcohol abuse. He is a smoker as well and currently smokes a half a pack of cigarettes per day. He does have a history of being incarcerated for approximately 10 years. FAMILY HISTORY: From previous history and physical, positive for his mother and father both passing away secondary to unknown cancers. ALLERGIES: Patient has no known allergies. HOME MEDICATIONS: 1. Lasix 40 mg p.o. daily. 2. Lactulose 30 mL p.o. b.i.d. 3. NicoDerm patch 20 mg p.o. daily. 4. Protonix 40 mg p.o. b.i.d. 5. Xifaxan 550 mg p.o. b.i.d. 6. Aldactone 50 mg p.o. daily. DIAGNOSTIC DATA: Laboratory results: White blood cell count is 5450, hemoglobin is 10.4, hematocrit 31.4, platelet count is 108. PT 20.4, INR 1.7, PTT is 39. Sodium 138, potassium 3.9, chloride 102, serum bicarbonate is 22. BUN 26, creatinine 2.2 with a GFR of 32, glucose 123, calcium 8.6, magnesium 1.9, total bilirubin is 2.33. AST 56, ALT 45, alkaline phosphatase is 142. Ammonia level is 148. Urine drug screen was positive for opiates, oxycodone and cannabinoids. Serum alcohol was zero. Urinalysis was obtained via catheter, was positive for protein, trace ketones, blood, leukocytes, was negative for glucose, nitrites, white blood cells or bacteria. A urine culture is pending at this time. EKG showed sinus tachycardia with left axis deviation and left bundle branch block at a rate of 109 with a QTc of 530. Looking back, this left bundle branch block was present on a previous EKG in August 2018. We did perform a CT of the head without contrast, which we did just recently receive the report on which showed that the patient has a small focus of right temporal subarachnoid hemorrhage versus artifact. Short interval follow-up is recommended approximately 6 hours unless otherwise clinically indicated. This was the radiologist's recommendation. We are awaiting a portable chest x-ray to be performed as well. A urine culture is pending at this time. PHYSICAL EXAMINATION: VITAL SIGNS: Temperature 97.7 degrees, heart rate 85, respirations 14, blood pressure is 114/86, oxygen saturation is 99% on room air. GENERAL: Mr. Bolden is a 48-year-old male. He is resting in the ER stretcher, unfortunately the patient was very combative and agitated upon arrival. He did have to be given sedated medicines of Ativan and Geodon. At this time, he is only minimally responsive to sternal rub just by some slight movement and some grunting. HEENT: Head is atraumatic, normocephalic. Pupils are equal, round, reactive to light, 3 mm bilaterally. They were sluggish. Oral mucosa from what I could examine was moist. We were unable to complete full oropharynx exam due to the patient's current mentation and not being able to follow commands. NECK: Supple. Trachea midline. CARDIOVASCULAR: Patient has S1, S2 present. No murmurs, gallops, rubs appreciated. He has a regular rate and rhythm. PULMONARY: Patient has symmetrical chest expansion bilaterally. Lung sounds are clear to auscultation in bilateral full cummins. ABDOMEN: The patient's abdomen is firm, distended. There was no facial grimacing, guarding or localization of pain upon palpation. Bowel sounds are present; they were hypoactive. GENITOURINARY: The patient does have Perez catheter in place at this time. He does have light, brisa-colored urine noted to Perez drainage bag. EXTREMITIES: No cyanosis or edema noted. Radial and pedal pulses were 2+ bilaterally. Capillary refill is less than 3. NEUROLOGICAL: Patient is resting in bed with his eyes closed. He is only mentally responsive at this time with a sternal rub by some slight movement and some grunting. Unfortunately at this time the patient's neurological exam is limited due to he was very combative and agitated. Upon arrival to the ER, he was given sedated medicines of Ativan and Geodon. ASSESSMENT AND PLAN: 1. Encephalopathy. This could be multifactorial. The patient does have liver cirrhosis. His ammonia level is elevated at this time. His urine drug screen was positive for opiates, oxycodone, and cannabinoids. Also, the patient was noted on his head CT to have a possible small focus of right temporal subarachnoid hemorrhage versus artifact and the radiologist did recommend short interval follow-up on. We are going to administer lactulose rectally. The patient is unable to take oral medication at this time. He will remain on nothing by mouth. We have placed a consult with Gastroenterology with Dr. Quintero as well. We are going to repeat his CT in a few hours for follow-up of possible right temporal subarachnoid hemorrhage. Until this time, he will be placed in the intensive care unit for close monitoring. He is receiving continuous cardiac telemetry and pulse oximetry, as well as frequent vital signs and neurological checks. 2. Possible small right temporal subarachnoid hemorrhage. We will continue treatment as mentioned above. There was a possibility this could be a small focus of right temporal threat with hemorrhage versus artifact. The radiologist did recommend short interval follow-up. We will repeat head CT in a few hours. We will continue with treatment as mentioned above for #1. We will continue to follow his neurological status very closely. 3. Liver cirrhosis. We have placed a consult with Dr. Quintero with Gastroenterology. We will await their evaluation and further recommendations. 4. Ascites. We have ordered for the patient to undergo ultrasound-guided paracentesis. We have placed studies of his peritoneal fluid as well. We will await these results. 5. Acute kidney injury. This could be secondary to hepatorenal syndrome. We will continue to monitor this closely. We will avoid nephrotoxic medications and renally- dosed medicines as necessary. 6. Deep vein thrombosis prophylaxis will be provided with sequential compression devices. We will hold any anticoagulants given his liver disease, thrombocytopenia, esophageal varices, and possible right temporal subarachnoid hemorrhage. Further orders and recommendations pending hospital course, diagnostic studies, and physician evaluation. Dictated by SAM Acosta for Darren Kevin MD I have performed a face to face diagnostic evaluation. Labs/ Imaging - reviewed. Exam- chest- clear, CV- regular , Neuro- altered. A/P- AMS, cirrhosis- Admit- NPO, neuro checks, GI consult. Dr. Kevin cc: Darren Kevin MD [facility]
--- NOTE | 2018-10-06 09:47 | Diag Imaging Result Doc PS360 ---
EXAM: CT HEAD W/O CONTRAST 10/06/2018 HISTORY: AMS,Fall TECHNIQUE: This exam was performed using automated exposure control, adjustment of mA or kV according to patient size, and/or use of iterative reconstruction technique. COMMENT: There is no evidence of mass effect, bleed, or abnormal extra-axial fluid collection. The visualized paranasal sinuses are clear. The calvarium is intact. IMPRESSION: No evidence of acute intracranial disease. Electronically signed by David Rincon 10/06/2018 9:45 AM
--- NOTE | 2018-10-06 09:57 | Diag Imaging Result Doc PS360 ---
EXAM: CT HEAD W/O CONTRAST 10/06/2018 HISTORY: ???subarachnoid bleed. TECHNIQUE: This exam was performed using automated exposure control, adjustment of mA or kV according to patient size, and/or use of iterative reconstruction technique. COMMENT: There is some hardening artifact. There is no evidence of bleed, mass effect, or abnormal extra-axial fluid collection. The appearance the brain has not changed significantly since the previous study of this date at 0514. The calvarium is intact. The visualized paranasal sinuses are clear. IMPRESSION: No evidence of acute disease. Electronically signed by David Rincon 10/06/2018 9:55 AM
--- NOTE | 2018-10-06 10:03 | Diag Imaging Result Doc PS360 ---
EXAM: CT THORAX W/O CONTRAST 10/06/2018 HISTORY: ? pneumonia TECHNIQUE: This exam was performed using automated exposure control, adjustment of mA or kV according to patient size, and/or use of iterative reconstruction technique. COMMENT: There are no previous thoracic studies available for comparison. Comparison is made with the abdominal CT of 09/26/2018 where possible. There is a very large right pleural effusion. There is a much smaller left pleural effusion. There is marked ascites. The liver is nodular in contour and the spleen is enlarged consistent with cirrhosis and portal hypertension. There are apparent esophageal varices. Extensive coronary atherosclerosis is present. There is compressive atelectasis on the right. There is platelike atelectasis in the right middle lobe and left lower lobe. The pleural effusions are much worse than on the previous examination. The degree of ascites is actually slightly improved. IMPRESSION: Marked ascites, large right pleural effusion, smaller left pleural effusion and bilateral atelectasis. The possibility of minimal pneumonia cannot be entirely excluded. Electronically signed by David Rincon 10/06/2018 10:01 AM
--- NOTE | 2018-10-06 11:58 | Diag Imaging Result Doc PS360 ---
EXAM: CHEST-PORTABLE 10/06/2018 HISTORY: verify NG tube placement TECHNIQUE: AP portable at 1146 COMMENT: There is an NG tube with its tip in the fundus of the stomach. The inspiration is suboptimal. There is a large right pleural effusion. There is a skin fold over the right upper chest. There is atelectasis versus pneumonia in the left lower lobe and probable compressive atelectasis in the right lung. IMPRESSION: NG tube in the stomach. Otherwise essentially unchanged since 06. Electronically signed by David Rincon 10/06/2018 11:55 AM
[2018-10-06] MEDS: ALDACTONE NG SCH (13:15)
[2018-10-06] MEDS: XIFAXAN PO SCH (13:15)
--- NOTE | 2018-10-06 13:29 | PROGRESS NOTE ---
DATE: 10/06/2018 The patient was admitted with another episode of hemoptysis. The patient has a long history of cirrhosis and medical noncompliance with admissions for hepatic encephalopathy. He was brought in with confusion and was very aggressive and combative in the ER. He was given Geodon and Ativan and placed in restraints. On initial preliminary read of the CT of his head, there was concern for subarachnoid, but on final read of that CT and on repeat CT, no bleed was identified, so this was favored to be an artifact. The patient is currently entirely encephalopathic post sedating medications above. We will get him back on his lactulose and rifaximin and see how well he comes around. CT of chest showing fairly large right-sided effusion, bilateral atelectasis. Stomach really only mildly distended. I am not sure there is enough there to tap. We will go ahead and get him back on his diuretics and see if that improves his effusions and likely mild to moderate ascites. If that is ineffective, then may need paracentesis in the next day or two. The patient's ALLAN appears to be improving. UDS was positive for opiates, oxycodone and cannabinoids. We will continue PPI given the patient's previous history of peptic ulcer disease and varices. Given repeated noncompliance, the patient's overall prognosis is poor.
[2018-10-06] MEDS ORDERED: LACTULOSE NG ONE (16:13)
[2018-10-06] MEDS ORDERED: PROTONIX PO SCH (19:00)
--- NOTE | 2018-10-06 20:39 | GASTROENTEROLOGY CONSULTATION ---
DATE: 10/06/2018 REQUESTING PHYSICIAN: Dr. Mcleod. REASON FOR CONSULT: Hepatic encephalopathy and cirrhosis of the liver. HISTORY: This is a 48-year-old gentleman, a patient of Dr. Quintero and Dr. Howard. This is one of his multiple admissions to the hospital with similar problems. The patient has a history of decompensated cirrhosis of the liver with esophageal varices. He has chronic hepatitis B and C, and history of polysubstance abuse. He was admitted with similar symptoms last month as well. He was brought to the hospital this time with altered mental status. Evaluation resulted in the findings of metabolic encephalopathy. He was admitted for further evaluation and treatment. The patient is currently sedated and does not respond to questions. No family members available in the room. Most of the information was obtained from the chart. It appears that patient is very noncompliant and apparently has not followed up with Dr. Quintero after discharge from the hospital last month. Most likely, he has not been taking his medication as well. I am not sure about his habits, whether he continued to pursue his drug abuse or not, but he presented again with a history of altered mental status. He was very combative, and he has so far received multiple medications, but continues to be very combative. He has been tied and sedated now. So far, workup has not revealed any significant pathology. He has received a single dose of lactulose. Since admission, he has had 1 bowel movement. He has not had any evidence of GI bleeding. He has no history of melena or bright red blood per rectum. There was no evidence of fever or chills. PAST MEDICAL HISTORY: From the chart, it appears patient has decompensated cirrhosis of the liver, most likely from chronic hepatitis B and chronic hepatitis C, history of esophageal varices, status post endoscopic variceal ligation. He also has history of hypertension, nephrolithiasis. PAST SURGICAL HISTORY: From the chart, patient has history of EGD and esophageal banding. Other than that, no other history is available. SOCIAL HISTORY: He smokes half a pack of cigarettes per day and has history of polysubstance abuse. Not sure whether he is actively doing it or not. PHYSICAL EXAMINATION: Vitals: Now, his heart rate ranges from 83 to 108 per minute, breathing 14, blood pressure 112/84. From the chart, it appeared that he is 5 feet 10 inches tall, is about 174 pounds. The patient is sedated. Chest: Clear to auscultate. HEENT: Head is atraumatic, normocephalic. Eyes: Conjunctivae normal. Sclerae anicteric. Nares, has an NG tube in the left nostril. Mouth could not be examined. Neck: Supple. No lymphadenopathy. He has harsh breath sounds bilaterally in both sides. Heart: S1, S2 audible. No murmur. Abdomen: Slightly distended, but soft. No mass was appreciated. Bowel sounds audible, but sluggish. No pedal edema noted. I could not ascertain asterixis. LABORATORY: Labs reviewed, which show WBCs 5.27, hemoglobin 10.5, hematocrit 31.4, MCV 105, MCV was 105.4, platelets were 74,000. Sodium 138, potassium 3.8, chloride 103, bicarbonate is 22, BUN is 28, creatinine 1.7, which on admission was 2.2. Glucose was 113. AST 48, ALT 43, total bilirubin 1.98. Albumin was 2.6. On admission, opiates, oxycodone, as well as cannabinoids were positive. IMPRESSION/PLAN: 1. Hepatic encephalopathy. At this point, not sure about his precipitating factor. Most likely, him being noncompliant, most likely has not taken his medication, may have continued his habits, and may have presented with encephalopathy because of that. So far, he has had 1 good bowel movement, and he has an NG tube in place and to be started on lactulose, and actually that will help him come out of the encephalopathy. 2. Withdrawal is also a possibility and time will help him get over that. In the meantime, continue current treatment for sedation and keeping him comfortable. 3. Cirrhosis of the liver, decompensated. Most likely a combination of chronic hepatitis B and C. 4. Ascites and history of esophageal varices, status post banding. Nothing to be addressed at this point. 5. Anemia with macrocytosis. No active bleeding now. At this point, no new suggestions. 6. Coagulopathy secondary to cirrhosis of the liver. His PT on admission was 20.4, INR is 1.70. Again, no signs of active bleeding now. Does not need to be addressed at this point. 7. Peptic ulcer disease. He history of gastric ulcer in the antrum. On PPI. Continue on PPI. At this point, continue with current treatment. We will continue to follow and on Monday, care will be resumed back by Dr. Quintero and Dr. Howard. cc: Donny Leahy MD
[2018-10-06] MEDS ORDERED: LACTULOSE NG SCH (21:00)
[2018-10-07] MEDS: XIFAXAN PO SCH ×3 (00:34→21:21)
[2018-10-07] MEDS: HALDOL IV PRN ×6 (04:20→23:17)
[2018-10-07] MEDS: ATIVAN IV PRN ×6 (04:39→23:32)
[2018-10-07] MEDS ORDERED: VANCOMYCIN IV PER PHARMACY MISC SCH (07:15)
[2018-10-07] MEDS: ROCEPHIN 1 GM in NS 50 ML IV SCH (08:06)
[2018-10-07] MEDS: LASIX IV SCH (08:06)
[2018-10-07] MEDS: PROTONIX IV SCH (08:06)
[2018-10-07] MEDS: SODIUM CHLORIDE 0.9% INJ SCH (08:06)
[2018-10-07] MEDS: NON-FORMULARY BULK MED PR SCH ×2 (08:16→21:46)
[2018-10-07] MEDS ORDERED: MISC. PHARMACY COMMUNICATION SCH (09:00)
[2018-10-07] MEDS: VANCOMYCIN 1.5 GM in NS 250 ML IV SCH (09:10)
[2018-10-07] MEDS: ALDACTONE NG SCH (09:13)
[2018-10-07 09:58] LABS: INR 1.52; PROTIME 18.6 Seconds (11.0-16.0)
[2018-10-07 10:23] LABS: ALB/GLOB RATIO 0.6; ALBUMIN 2.6 g/dL (3.5-5.0); CALCIUM 8.8 mg/dL (8.8-10.2); CREATININE 1.3 mg/dL (0.7-1.2); TOTAL BILIRUBIN 2.07 mg/dL (0.20-1.00); TOTAL PROTEIN 6.9 g/dL (6.3-8.3)
[2018-10-07] MEDS ORDERED: NS 250 ML ONE (12:24)
--- NOTE | 2018-10-07 13:41 | GASTROENTEROLOGY PROGRESS NOTE ---
DATE: 10/07/2018 SUBJECTIVE: The patient is still in restraints. He is still agitated. I have spoken with the nurse. He pulled his NG tube out. He is now receiving lactulose by enemas. OBJECTIVE: Vital Signs: Temperature 97.5 degrees, pulse 89, respirations 14, blood pressure 121/85. General: The patient is restless, in restraints. Laboratory: Hematology: WBC 5.27, hemoglobin 10.5, hematocrit 31.4, MCV 105.4, platelets 74,000. Coagulation: Prothrombin time 18.6, INR 1.52. Chemistry: Sodium 139, potassium 5.0, chloride 106, CO2 of 19, BUN 31, creatinine 1.3, glucose 87. Total bilirubin 2.07, AST 62, ALT 45, alkaline phosphatase 141. ASSESSMENT AND PLAN: 1. Hepatic encephalopathy. Continue lactulose enemas since patient has pulled his nasogastric tube out. 2. Cirrhosis of the liver with history of chronic hepatitis B and hepatitis C. 3. Anemia, stable. 4. We will continue to follow. Dr. Quintero/Dr. Howard will garbage pick up worker care tomorrow. Further plans will be made as needed. I have discussed this case with Dr. Leahy. Dictated by SAM Krishna for Donny Leahy MD cc: SAM Gomez MD
--- NOTE | 2018-10-07 13:58 | PROGRESS NOTE ---
DATE: 10/07/2018 INTERVAL HISTORY: The patient waking up some but markedly encephalopathic when he does, and becomes quite agitated and aggressive. Continues to require chemical and physical restraints. No other acute events. REVIEW OF SYSTEMS: Unable to obtain secondary to patient's mental status. LABORATORY DATA: INR 1.5. Sodium 139, potassium 5, BUN 31, creatinine 1.3. Bilirubin 2.0, AST 62, ALT 45, alkaline phosphatase 141. VITALS: T-max 98.3 degrees, pulse 89, respirations 14, blood pressure 121/85, O2 saturation 100% on 2 L by nasal cannula. IMAGING: Chest x-ray yesterday with NG tube in place, otherwise stable. Chest CT yesterday with ascites, large right pleural effusion, smaller left pleural effusion, bilateral atelectasis. PHYSICAL EXAMINATION: General: The patient is awakened, markedly agitated at the time of my examination, thrashing against his restraints, yelling various, mostly incoherent words. Nurse was in the process of giving him sedating medications during my examination. Vitals: As above. HEENT: Normocephalic, atraumatic. Moist mucous membranes. No cervical adenopathy. Cardiovascular: Slightly tachycardic but regular. No murmurs noted. Pulmonary: Clear to auscultation bilaterally. Abdomen: Minimally distended but soft. Bowel sounds positive. Extremities: Peripheral pulses intact. No clubbing, cyanosis. Neurologic: The patient is moving all extremities, although not to command. No clear focal deficits. Psychiatric: Patient is awake but not very alert, not following any commands. Skin: No new rashes or lesions identified. ASSESSMENT AND PLAN: 1. Likely metabolic encephalopathy. The patient's cirrhosis and noncompliance with his medications are likely the primary etiologies. The patient's ammonia is 148 on admission. We were giving lactulose via nasogastric tube but he managed to pull out the nasogastric tube. Now giving lactulose enemas. We will give oral rifaximin when he is able to take oral intake reliably. Given intermittent significant agitation, we are having to give Haldol and Ativan. We will minimize sedating medications as we can but giving him some is likely unavoidable. 2. Cirrhosis. 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 Likely the primary contributor to his encephalopathy as above. Continue Lasix intravenously and we will continue spironolactone when he is able to take oral intake. 3. Polysubstance abuse. The patient with urine drug screen positive for opiates, oxycodone, and cannabinoids, which he does not appear to be prescribed any of. May be contributing to his initial encephalopathy. 4. Acute kidney injury. Patient with elevated creatinine but appears to be trending down. Continue to monitor. 5. Varices and peptic ulcer disease. Avoid anticoagulation. Had nasogastric tube initially but will not continue to try to replace given his varices. 6. Hypertension. Control acceptable currently. 7. Medical noncompliance. The patient has a long history of noncompliance. Noncompliance and substance abuse are likely why he has decompensated.
--- NOTE | 2018-10-07 14:04 | Diag Imaging Result Doc PS360 ---
EXAM: CHEST-PORTABLE 10/07/2018 HISTORY: Verify PICC placement TECHNIQUE: AP portable at 1344 COMMENT: There is hazy opacity over the right hemithorax particularly in the parahilar region of the right upper lobe. This appears somewhat worse than on 10/06/2018. There is a left-sided PICC line with its tip in the right atrium. The NG tube has been removed. IMPRESSION: Slightly worsened right upper lobe pneumonia. The pleural fluid collection which was present on the right may be slightly improved. Electronically signed by David Rincon 10/07/2018 2:02 PM
[2018-10-07 14:41] LABS: BASO# 0.02 X1000 (0.0-0.2); BASO% 0.4 % (0.0-0.8); EOS# 0.07 X1000 (0.0-0.7); EOS% 1.5 % (0.0-10.0); HEMATOCRIT 29.9 % (42.0-52.0); HEMOGLOBIN 9.7 g/dL (14.0-18.0); IMM GRAN# 0.02 X1000 (0.0-0.04); IMM GRAN% 0.4 % (0.0-0.5); LYMPH# 0.77 X1000 (1.2-3.4); MCH 34.8 PG (27-31); MCHC 32.4 g/dL (33-37); MCV 107.2 FL (81-99); MONO# 0.44 X1000 (0.11-0.59); MONO% 9.7 % (1.7-9.3); MPV 11.7 FL (7.4-10.4); PLT 62 X1000 (130-400); RBC 2.79 XMIL (4.7-6.1); RDW 16.8 % (11.5-14.5); WBC 4.52 X1000 (4.8-10.8)
--- NOTE | 2018-10-07 15:03 | Diag Imaging Result Doc PS360 ---
EXAM: CHEST-PORTABLE 10/07/2018 HISTORY: PICC line placement TECHNIQUE: AP portable at 1445 COMMENT: There is a left-sided PICC line with its tip in the superior vena cava. There is alveolar opacity in the parahilar portions of the right upper and lower lobes. IMPRESSION: Right upper and lower lobe pneumonia. Electronically signed by David Rincon 10/07/2018 3:01 PM
[2018-10-07 15:10] LABS: EOS 2 % (1-10); LARGE PLATELETS OCCASIONAL; LYMPHS 18 % (21-51); MONO 12 % (1-9); SEGS 68 % (42-75)
[2018-10-08] MEDS: ATIVAN IV PRN ×7 (04:59→23:34)
[2018-10-08 05:27] LABS: AGAP 9; ALB/GLOB RATIO 0.7; ALBUMIN 2.5 g/dL (3.5-5.0); ALKALINE PHOSPHATASE 120 U/L (32-122); BUN 33 mg/dL (8-22); CALCIUM 8.6 mg/dL (8.8-10.2); CHLORIDE 110 mmol/L (98-107); COSMO 294; CREATININE 1.1 mg/dL (0.7-1.2); ESTIMATED GFR > 60; GLUCOSE 94 mg/dL (70-104); GOT 45 U/L (10-34); GPT 36 U/L (10-44); POTASSIUM 3.9 mmol/L (3.5-5.1); SODIUM 144 mmol/L (136-145); TCO2 25 mmol/L (25-35); TOTAL BILIRUBIN 1.57 mg/dL (0.20-1.00); TOTAL PROTEIN 6.1 g/dL (6.3-8.3)
[2018-10-08 06:27] LABS: BASO# 0.02 X1000 (0.0-0.2); BASO% 0.4 % (0.0-0.8); EOS# 0.07 X1000 (0.0-0.7); EOS% 1.6 % (0.0-10.0); HEMATOCRIT 30.9 % (42.0-52.0); HEMOGLOBIN 10.2 g/dL (14.0-18.0); LYMPH# 0.74 X1000 (1.2-3.4); LYMPH% 16.6 % (20.5-51.1); MCH 35.7 PG (27-31); MONO% 11.2 % (1.7-9.3); MPV 11.8 FL (7.4-10.4); NEUT# 3.12 X1000 (1.4-6.5); NEUT% 70.2 % (42.2-75.2); PLT 59 X1000 (130-400); RBC 2.86 XMIL (4.7-6.1); RDW 16.7 % (11.5-14.5); WBC 4.45 X1000 (4.8-10.8)
[2018-10-08] MEDS: ROCEPHIN 1 GM in NS 50 ML IV SCH (08:22)
[2018-10-08] MEDS: LASIX IV SCH (08:22)
[2018-10-08] MEDS: PROTONIX IV SCH (08:22)
[2018-10-08] MEDS: VANCOMYCIN 1.5 GM in NS 250 ML IV SCH (08:23)
[2018-10-08] MEDS: XIFAXAN PO SCH ×2 (08:23→21:24)
[2018-10-08] MEDS: ALDACTONE NG SCH (08:23)
[2018-10-08] MEDS: NON-FORMULARY BULK MED PR SCH ×2 (08:28→21:35)
[2018-10-08] MEDS: HALDOL IV PRN ×4 (11:06→21:25)
[2018-10-08] MEDS: STERILE WATER INJ. INJ PRN (13:54)
[2018-10-08] MEDS: GEODON IM PRN (13:55)
--- NOTE | 2018-10-08 15:17 | PROGRESS NOTE ---
DATE: 10/08/2018 INTERVAL HISTORY: The patient is waking up a little more but continues to be markedly encephalopathic. A little less aggressive and agitated today but oriented to nothing. No other acute events overnight. REVIEW OF SYSTEMS: Unable to obtain secondary to the patient's mental status. DIAGNOSTIC DATA: WBC is 4.4, hemoglobin 10.2, hematocrit 30.9, platelets 59. Sodium is 144, potassium 3.9, bicarb 25, BUN is 33, creatinine 1.1. Bilirubin 1.5, AST is 45, ALT is 36, alkaline phosphatase 120. OBJECTIVE: Vital signs: T-max is 98.3, pulse 108, respirations 21, blood pressure 140/94, O2 saturation is 98% on 2 L by nasal cannula. General: The patient is anxious appearing, somewhat agitated with any stimulation. Vitals as above. HEENT: Normocephalic and atraumatic. Moist mucous membranes. No cervical adenopathy. Cardiovascular: Tachycardic but regular. No murmurs noted. Pulmonary: Clear to auscultation bilaterally. Abdomen: Nondistended, nontender. Bowel sounds positive. Extremities: Peripheral pulses intact. No clubbing or cyanosis. Neurologic: The patient is moving all extremities. Pupils are equal, round and reactive to light. Intermittently tracks with eyes to all quadrants. No clear focal deficits. Psychiatric: The patient is awake but not really alert, follows no commands. Speech incoherent. Skin: No new rashes or lesions identified. Multiple tattoos, unchanged. ASSESSMENT AND PLAN: 1. Likely metabolic encephalopathy. The patient is with cirrhosis and noncompliance with his medications. Ammonia was 148 on admission and has come down on last check to 34. Continue giving lactulose, and we will add oral rifaximin when he is able to take p.o. We will give Haldol and Ativan as needed but try to minimize sedating medications as much as we can. He is coming around slowly, but it took quite a while for him to come around fully last time he was here. 2. Suspicion of cirrhosis secondary hepatitis B and C. This is likely the primary contributor to his encephalopathy above. Continue Lasix IV and add spironolactone when he is able to take p.o. 3. Polysubstance abuse. The patient is with urine drug screen positive for opiates, oxycodone and cannabinoids, which he does not appear to be prescribed any of, likely not contributing to his encephalopathy at this point, although they may have initially. 4. Acute kidney injury. The patient is with elevated creatinine to 2.2 on admission but trending down well, down to 1.1 at this point. Monitor. 5. Esophageal varices and peptic ulcer disease. Avoid anticoagulation. We will likely not try to replace NG tube. 6. Hypertension. Acceptable control. Monitor. 7. Medical noncompliance. We will discuss again with the patient when his mental status improves.
--- NOTE | 2018-10-08 19:43 | GASTROENTEROLOGY PROGRESS NOTE ---
DATE: 10/08/2018 SUBJECTIVE: The patient is resting in bed. He is restrained. He is confused. He has a history of liver cirrhosis complicated with ascites, SBP, and chronic hepatitis B and C. He has been noncompliant with medications. OBJECTIVE: Vital Signs: Temperature of 97.9, pulse of 108, respiratory rate 21, blood pressure 140/94, saturating 98% on 2 L nasal cannula. Body weight of 135 pounds, 8 ounces. BMI 25.2 kg. General Appearance: Lying in bed in restraints. Confused. Unable to answers any questions. HEENT: Positive pallor. Mild icterus. Neck: Supple. Abdomen: Protuberant. Positive ascites. No guarding or rebound. Extremities: He is in restraints, upper and lower extremities. Neurologic: He is confused. LABORATORY DATA: His hemoglobin and hematocrit are 7.2 and 30.9, white count of 4.45, platelet count of 59,000. Sodium 144, potassium 3.9, chloride 110, bicarb 25, BUN of 33, creatinine of 1.1, glucose of 94, calcium is 8.6. Total bilirubin 1.5. AST 45, ALT 36, and alkaline phosphatase 120. Total protein 6.1, Albumin 2.5. His tox screen was positive for opioids, oxycodone, and cannabis. His urine culture is no growth. Blood cultures coagulase negative Staph, one out of two culture bottles. IMAGING: Chest x-ray done yesterday showed right upper and lower lobe pneumonia. IMPRESSION AND PLAN: 1. Chronic hepatitis B and C. Aware. 2. Hepatic encephalopathy. On Lactulose enemas. His ammonia is trending down. The patient is still confused. 3. Ascites with possible spontaneous bacterial peritonitis. He is already on empiric antibiotics with primary team. 4. Anemia: Watch for now. Transfuse as needed. 5. He is on intravenous Ativan as needed for agitation. 6. He is on Lasix and Aldactone per the Primary Care Team for ascites. He is getting Xifaxan 550 mg orally twice a day and Lactulose for hepatic encephalopathy. He has pulled his nasogastric tube out for now. So, for now he is getting Lactulose enemas. 7. He is scheduled for an ultrasound guided paracentesis and we made to do fluid studies to evaluate for spontaneous bacterial peritonitis. 8. In the interim, he is on empiric antibiotics of ceftriaxone and vancomycin. 9. Discussed the above with Nursing staff and all questions answered, please call us with any further questions. We will continue on gastrointestinal prophylaxis with proton pump inhibitors. Please call with any further questions. cc: MD Prem Castillo MD MTDBrando
[2018-10-09] MEDS: HALDOL IV PRN ×6 (01:20→22:52)
[2018-10-09] MEDS: GEODON IM PRN ×2 (04:18→20:12)
[2018-10-09 06:19] LABS: BASO# 0.01 X1000 (0.0-0.2); BASO% 0.2 % (0.0-0.8); EOS# 0.07 X1000 (0.0-0.7); EOS% 1.4 % (0.0-10.0); HEMATOCRIT 32.9 % (42.0-52.0); HEMOGLOBIN 10.7 g/dL (14.0-18.0); IMM GRAN# 0.02 X1000 (0.0-0.04); IMM GRAN% 0.4 % (0.0-0.5); LYMPH# 0.76 X1000 (1.2-3.4); LYMPH% 15.7 % (20.5-51.1); MCH 34.7 PG (27-31); MCHC 32.5 g/dL (33-37); MCV 106.8 FL (81-99); MONO% 12.4 % (1.7-9.3); NEUT# 3.37 X1000 (1.4-6.5); NEUT% 69.9 % (42.2-75.2); PLT 67 X1000 (130-400); RBC 3.08 XMIL (4.7-6.1); RDW 16.2 % (11.5-14.5); WBC 4.83 X1000 (4.8-10.8)
[2018-10-09 07:07] LABS: ALB/GLOB RATIO 0.6; ALBUMIN 2.7 g/dL (3.5-5.0); CALCIUM 8.8 mg/dL (8.8-10.2); CREATININE 1.4 mg/dL (0.7-1.2); POTASSIUM 3.5 mmol/L (3.5-5.1); TOTAL BILIRUBIN 1.8 mg/dL (0.20-1.00); TOTAL PROTEIN 6.9 g/dL (6.3-8.3)
[2018-10-09] MEDS: ATIVAN IV PRN (07:11)
[2018-10-09] MEDS ORDERED: LR 1,000 ML IV SCH (08:00)
[2018-10-09] MEDS ORDERED: CLINIMIX E 4.25%-5% SOLUTION 1,000 ML IV SCH (08:00)
[2018-10-09] MEDS: ROCEPHIN 1 GM in NS 50 ML IV SCH (08:37)
[2018-10-09] MEDS: LASIX IV SCH (08:38)
[2018-10-09] MEDS: PROTONIX IV SCH (08:38)
[2018-10-09] MEDS: NON-FORMULARY BULK MED PR SCH ×2 (08:38→20:13)
[2018-10-09] MEDS: CLINIMIX E 4.25%-5% SOLUTION 1,000 ML IV SCH ×2 (08:39→21:41)
--- NOTE | 2018-10-09 08:50 | PROGRESS NOTE ---
DATE: 10/09/2018 INTERVAL HISTORY: Mr. Bolden could not get ultrasound-guided paracentesis since there was not enough fluid for tapping as per the report given to me by the nursing team. Otherwise, overnight no acute events. He continued to require multiple doses of sedative medications for his agitation. SUBJECTIVE: He is confused, agitated, in four-point restraints. Does not answer any questions. VITAL SIGNS: Currently temperature of 97.7 degrees, pulse of 114, respiratory rate 16, blood pressure 140/100. He is saturating 98% on room air. He does have a baseline left bundle branch block. PHYSICAL EXAMINATION: HEENT: Oral cavity, he has dried flecks of sputum. Lungs: Air entry bilaterally equal. No wheeze or rhonchi. Cardiovascular: He has a prominent systolic ejection systolic murmur, heard best at the apex of the heart. No wheeze or rhonchi. No rub or gallop. Abdomen: Soft, nontender. It appears obese. Hypoactive bowel sounds. No lower extremity edema. LABORATORY DATA: Suggestive of macrocytic anemia, mild thrombocytopenia, acute kidney injury, improving hyperbilirubinemia and transaminitis. MICROBIOLOGY: No positive culture data. IMAGING: No new imaging. ASSESSMENT AND PLAN: 1. Acute metabolic encephalopathy, likely hepatic encephalopathy due to liver cirrhosis and hyperammonemia. Continue lactulose through enema and rifaximin once he is able to take by mouth. Continue intravenous haloperidol and intravenous Ativan as needed. My eventual plan would be to take him off Ativan as tolerated and keep him on haloperidol. 2. Suspicion of liver cirrhosis due to chronic hepatitis B and hepatitis C. Decompensated considering his bleeding esophageal varices on previous admission. Continue current dose of intravenous Lasix and adjust dose according to kidney function due to previous history of ascites. Continue rectal tube. Previously, he pulled out NG tube and we have been holding we have and introduced it back. Considering his history of bleeding varices. 3. Acute kidney injury. Likely because of intravenous Lasix use and intravascular volume depletion. I will start him on intravenous Clinimix and as needed, we will decrease intravenous Lasix as per his course tomorrow. I will also continue him on intravenous Protonix. 4. Polysubstance abuse for opiates as well as cannabis. I will counselor nurses' association him once he is more alert. 5. Others. His essential hypertension is currently stable. 6. Disposition. I will continue to monitor patient inside ICU. TIME SPENT: More than 30 minutes of critical care time was spent in taking care of this patient. Considering his medical noncompliance, decompensated liver cirrhosis, he has poor prognosis if he continues to remain noncompliant. Plan of care discussed with nursing team. cc: Gumaro Matthews MD
[2018-10-09] MEDS: ALDACTONE NG SCH (09:13)
[2018-10-09] MEDS: XIFAXAN PO SCH ×2 (09:15→20:12)
[2018-10-09] MEDS: VANCOMYCIN 1.5 GM in NS 250 ML IV SCH (09:26)
--- NOTE | 2018-10-09 23:52 | PROVIDER PROGRESS NOTE ---
Progress Note S: Patient agitated overnight requiring ativan. He is restrained and unable to provide ROS. Receiving lactulose enemas. O: Last Vital Signs Temp 98.6 F 10/10/18 03:00 Pulse 113 H 10/10/18 04:35 Resp 21 10/10/18 04:35 BP 127/105 10/10/18 04:35 Pulse Ox 97 10/10/18 04:35 Height 5 ft 10 in Weight 162 lb GEN: NAD, confused HEENT: anicteric, EOMI NECK: supple, no JVD PULM: CTAB, no wheezing CV: RRR no murmurs ABD: soft NT, distended; BS present; + ascites EXT: no cce NEURO: encephalopathic, restrained LABS: 09/23/18 09/23/18 10/09/18 07:10 07:10 04:15 WBC 11.39 H Hgb 11.4 L MCV Plt Count 105 L Sodium 137 144 Potassium 4.0 3.5 Chloride 106 110 H Carbon Dioxide 20 L 24 L BUN 19 33 H Creatinine 0.9 1.4 H Total Bilirubin 2.00 H 1.80 H AST 101 H 50 H ALT 46 H 37 Alkaline Phosphatase 109 130 H Total Protein 6.8 6.9 Albumin 3.0 L 2.7 L 10/09/18 04:15 WBC 4.83 Hgb 10.7 L MCV 106.8 H Plt Count 67 L Sodium Potassium Chloride Carbon Dioxide BUN Creatinine Total Bilirubin AST ALT Alkaline Phosphatase Total Protein Albumin A/P: Mr. Zachary Bolden is a 48 year old man with HCV and HBV cirrhosis c/b ascites and non-bleeding esophageal varices who was readmitted with hepatic encephalopathy likely secondary to med non-compliance. He has continued PSE. Labs notable for relative hypernatremia, ALLAN, macrocytic anemia. Baseline LFTs. # HBV/HCV cirrhosis - PSE: on lactulose enemas and rifaximin; titrate lactulose for 3 BMs daily, hold next dose for >=4 BMs in 24 hours - Cirrhosis: stable LFTs: trend LFTs, INR daily - Ascites: hold diuretics; recommend diagnostic paracentesis only - EV: s/p EVL on 09/11; no history of variceal bleed; patient is due for repeat EGD; will do when mental status improved - HCC: prior CT negative for hepatoma, AFP WNL, repeat US every 6 months - OLT: non-compliant # ALLAN: stopped diuretics; will give 50mg albumin IV # Anemia: stable; no overt bleeding # Coagulopathy: INR 2 # Thrombocytopenia: stable # PUD: continue PPI BID # Severe protein calorie malnutrition: on Clinimix; low Na diet when able
[2018-10-10] MEDS: HALDOL IV PRN ×4 (03:05→11:30)
[2018-10-10] MEDS: GEODON IM PRN ×2 (04:06→12:38)
[2018-10-10 04:55] LABS: BASO# 0.01 X1000 (0.0-0.2); BASO% 0.2 % (0.0-0.8); EOS# 0.13 X1000 (0.0-0.7); EOS% 2.4 % (0.0-10.0); HEMOGLOBIN 10.3 g/dL (14.0-18.0); IMM GRAN# 0.03 X1000 (0.0-0.04); IMM GRAN% 0.6 % (0.0-0.5); LYMPH# 0.93 X1000 (1.2-3.4); LYMPH% 17.4 % (20.5-51.1); MCH 35.6 PG (27-31); MCHC 32.2 g/dL (33-37); MCV 110.7 FL (81-99); MONO# 0.67 X1000 (0.11-0.59); MONO% 12.5 % (1.7-9.3); MPV 11.9 FL (7.4-10.4); NEUT# 3.59 X1000 (1.4-6.5); NEUT% 66.9 % (42.2-75.2); PLT 62 X1000 (130-400); RBC 2.89 XMIL (4.7-6.1); RDW 15.9 % (11.5-14.5); WBC 5.36 X1000 (4.8-10.8)
[2018-10-10 05:20] LABS: AGAP 10; ALB/GLOB RATIO 0.7; ALBUMIN 2.6 g/dL (3.5-5.0); ALKALINE PHOSPHATASE 109 U/L (32-122); BUN 32 mg/dL (8-22); CALCIUM 8.5 mg/dL (8.8-10.2); CHLORIDE 104 mmol/L (98-107); COSMO 292; ESTIMATED GFR > 60; GLUCOSE 339 mg/dL (70-104); GOT 42 U/L (10-34); GPT 32 U/L (10-44); POTASSIUM 5.6 mmol/L (3.5-5.1); SODIUM 136 mmol/L (136-145); TCO2 22 mmol/L (25-35); TOTAL BILIRUBIN 1.35 mg/dL (0.20-1.00); TOTAL PROTEIN 6.1 g/dL (6.3-8.3)
[2018-10-10] MEDS ORDERED: ALBUMIN 25% IV ONE (06:04)
[2018-10-10] MEDS: PROTONIX IV SCH ×2 (07:39→18:41)
[2018-10-10] MEDS: SODIUM CHLORIDE 0.9% INJ SCH ×2 (07:39→18:42)
[2018-10-10] MEDS: NON-FORMULARY BULK MED PR SCH ×2 (09:58→22:00)
[2018-10-10] MEDS: XIFAXAN PO SCH ×2 (09:58→21:16)
--- NOTE | 2018-10-10 10:10 | PROGRESS NOTE ---
DATE: 10/10/2018 INTERVAL HISTORY: He continued to remain agitated requiring intravenous haloperidol. However, in the morning time, he is slightly more alert and oriented, and answering questions. He can tell me his name and his date. He still has intermittent episodes of agitation, though. SUBJECTIVE: He denies any active complaints at the moment. VITALS: Temperature 98.7 degrees, pulse 92, respiratory rate 14, blood pressure 103/76, and saturating 97% on room air. PHYSICAL EXAMINATION: General: He does not appear in any acute distress. He is in four-point restraints. No pallor, cyanosis, clubbing, or icterus. Lungs: Air entry bilaterally equal. No wheeze, rhonchi or crackles. He has a prominent diastolic murmur affecting the left 2nd intercostal space. No rub or gallop. Abdomen: Soft. Obese. Nontender. Hypoactive bowel sounds. Extremities: No lower extremity edema. He is alert. He is moving all extremities spontaneously. Neurologic: On questioning, he is oriented, though he may have a degree of confusion. LABORATORY: Today, suggestive of macrocytic anemia, thrombocytopenia, and hyperkalemia. Normal kidney function. MICROBIOLOGY: No positive data. IMAGING: No new imaging. ASSESSMENT AND PLAN: 1. Acute metabolic encephalopathy, likely hepatic encephalopathy due to liver cirrhosis associated with chronic hepatitis B and current chronic hepatitis C virus and hyperammonemia. Continue lactulose through enema and rifaximin once he is able to take by mouth. Continue intravenous haloperidol as needed for agitation as well as intra muscular ziprasidone. His mental status is improving. In the past, he was noncompliant with outpatient Gastroenterology followup. 2. Suspected liver cirrhosis due to chronic hepatitis B and hepatitis C with history of esophageal varices s/p Banding and peptic ulcer disease. Continue him on intravenous Protonix b.i.d. He would need a repeat EGD once he is more stable. 3. Right lung multifocal pneumonia: S/p 5 days of Ceftriaxone. Follow up Chest Xray tomorrow. 3. Acute kidney injury because of intravascular volume depletion and use of Lasix now resolved. 4. Nutrition. I will continue intravenous Clinimix and start him on ice chips, sips of water, and will advance his diet as tolerated. Intravenous albumin has also been ordered by Gastroenterology. 5. Opiate as well as cannabis use disorder. He would be counseled about not using these substances. His essential hypertension is currently stable. 6. Disposition: We will continue to monitor patient in ICU and the plan is to eventually transition him to [facility]. Plan of care discussed with the patient's nursing team. Yesterday, I had an extensive discussion about his clinical condition, need for regular followup, and his worsening overall general health status with his son, and his questions were answered. cc: Gumaro Matthews MD MTDD
--- NOTE | 2018-10-10 10:39 | PROVIDER PROGRESS NOTE ---
Progress Note S: Paracentesis was attempted yesterday, but there was not enough fluid to tap. No acute overnight events. Patient mental status significantly improved per RN. No rectal bleeding, hemematesis, N/V. O: Last Vital Signs Temp 98.7 F 10/10/18 08:03 Pulse 92 H 10/10/18 08:32 Resp 14 10/10/18 08:32 BP 103/76 10/10/18 08:32 Pulse Ox 97 10/10/18 08:32 Height 5 ft 10 in Weight 162 lb GEN: NAD, confused HEENT: anicteric, EOMI NECK: supple, no JVD PULM: CTAB, no wheezing CV: RRR no murmurs ABD: soft NT, BS present; minimal ascites EXT: no cce NEURO: improving encephalopathy, restrained LABS: 10/10/18 10/10/18 04:05 04:05 WBC 5.36 Hgb 10.3 L Plt Count 62 L Sodium 136 Potassium 5.6 H D Chloride 104 Carbon Dioxide 22 L BUN 32 H Creatinine 1.0 Glucose 339 H D Total Bilirubin 1.35 H AST 42 H ALT 32 Alkaline Phosphatase 109 Total Protein 6.1 L Albumin 2.6 L A/P: Mr. Zachary Bolden is a 48 year old man with HCV and HBV cirrhosis c/b ascites and non-bleeding esophageal varices s/p EVL who was readmitted with hepatic encephalopathy likely secondary to med non-compliance. He is improving slowly. Labs notable for relative hypernatremia and ALLAN that are improving with holding diuretics. Baseline LFTs. # HBV/HCV cirrhosis - PSE: on lactulose enemas and rifaximin; can transition to PO lactulose once taking PO, titrate for 2-3 BMs daily, hold next dose for >=4 BMs in 24 hours; haldol prn for agitation - Cirrhosis: stable LFTs: trend LFTs, INR daily - Ascites: holding diuretics; low salt diet when able - EV: s/p EVL on 09/11; no history of variceal bleed; patient is due for repeat EGD; will do prior to discharge - HCC: prior CT negative for hepatoma, AFP WNL, repeat US every 6 months - OLT: non-compliant # ALLAN: improving; avoid nephrotoxins # Anemia: stable; no overt bleeding # Coagulopathy: INR 2 # Thrombocytopenia: stable # PUD: continue PPI BID # Severe protein calorie malnutrition: on Clinimix; low Na diet when able Will follow with you
[2018-10-10] MEDS: STERILE WATER INJ. INJ PRN (12:37)
[2018-10-10] MEDS: CLINIMIX E 4.25%-5% SOLUTION 1,000 ML IV SCH (12:59)
[2018-10-10] MEDS ORDERED: HALDOL IV PRN (18:57)
[2018-10-10] MEDS ORDERED: SEROQUEL PO SCH (21:00)
[2018-10-11 05:17] LABS: BASO# 0.02 X1000 (0.0-0.2); BASO% 0.4 % (0.0-0.8); EOS# 0.21 X1000 (0.0-0.7); EOS% 4.4 % (0.0-10.0); HEMATOCRIT 32.5 % (42.0-52.0); HEMOGLOBIN 10.6 g/dL (14.0-18.0); IMM GRAN# 0.03 X1000 (0.0-0.04); IMM GRAN% 0.6 % (0.0-0.5); LYMPH# 1.04 X1000 (1.2-3.4); LYMPH% 21.6 % (20.5-51.1); MCH 35.2 PG (27-31); MCHC 32.6 g/dL (33-37); MONO# 0.45 X1000 (0.11-0.59); MONO% 9.4 % (1.7-9.3); MPV 12.3 FL (7.4-10.4); NEUT# 3.06 X1000 (1.4-6.5); NEUT% 63.6 % (42.2-75.2); PLT 54 X1000 (130-400); RBC 3.01 XMIL (4.7-6.1); RDW 15.8 % (11.5-14.5); WBC 4.81 X1000 (4.8-10.8)
[2018-10-11] MEDS: CLINIMIX E 4.25%-5% SOLUTION 1,000 ML IV SCH (05:18)
--- NOTE | 2018-10-11 05:30 | EKG Report ---
Test Performed on : 10/11/2018 05:18:02 AM Test Reason : Evaluate for QTc prolongation Blood Pressure : / mmHG Vent. Rate : 072 BPM Atrial Rate : 072 BPM P-R Int : 160 ms QRS Dur : 100 ms QT Int : 534 ms P-R-T Axes : 032 -45 145 degrees QTc Int : 584 ms Normal sinus rhythm. with sinus arrhythmia. Left axis deviation Minimal voltage criteria for LVH, may be normal variant Anteroseptal infarct , age undetermined ST & T wave abnormality, consider lateral ischemia Prolonged QT Abnormal ECG When compared with ECG of 05-OCT-2018 23:20, (Unconfirmed) Vent. rate has decreased BY 37 BPM Left bundle branch block is no longer present Anteroseptal infarct is now present Confirmed by Oumar Beverly MD ([id number]) on 10/11/2018 1:00:29 PM
[2018-10-11 05:32] LABS: AGAP 7; ALB/GLOB RATIO 0.7; ALBUMIN 2.5 g/dL (3.5-5.0); ALKALINE PHOSPHATASE 100 U/L (32-122); BUN 31 mg/dL (8-22); CALCIUM 8.4 mg/dL (8.8-10.2); CHLORIDE 110 mmol/L (98-107); COSMO 288; CREATININE 0.8 mg/dL (0.7-1.2); ESTIMATED GFR > 60; GLUCOSE 99 mg/dL (70-104); GOT 40 U/L (10-34); GPT 27 U/L (10-44); MAGNESIUM 1.9 mg/dL (1.5-2.7); POTASSIUM 3.9 mmol/L (3.5-5.1); SODIUM 141 mmol/L (136-145); TCO2 24 mmol/L (25-35); TOTAL BILIRUBIN 1.21 mg/dL (0.20-1.00); TOTAL PROTEIN 6.1 g/dL (6.3-8.3)
[2018-10-11] MEDS: PROTONIX IV SCH ×3 (06:04→18:18)
--- NOTE | 2018-10-11 07:10 | Diag Imaging Result Doc PS360 ---
EXAM: CHEST-PORTABLE 10/11/2018 HISTORY: Follow up right lung pneumonia TECHNIQUE: AP portable at 0520 COMMENT: The alveolar opacity which was previously present on the right has diminished. This despite the relatively poorer inspiration on the current study. IMPRESSION: Improving right upper and lower lobe pneumonia. Electronically signed by David Rincon 10/11/2018 7:08 AM
[2018-10-11] MEDS: XIFAXAN PO SCH ×2 (08:16→21:26)
[2018-10-11] MEDS: NON-FORMULARY BULK MED PR SCH ×2 (08:16→21:26)
--- NOTE | 2018-10-11 08:33 | PROGRESS NOTE ---
DATE: 10/11/2018 INTERVAL HISTORY: Mr. Bolden did not have any acute events. He was more alert yesterday, and had eaten his breakfast. However, he did have episodes of intermittent agitation, requiring haloperidol and ziprasidone. Today when I entered the room, he is under his blankets, sleeping. However, he follows all commands. He has a rectal tube, Perez catheter. His Clinimix has been stopped. He has a left-sided PICC line. He denies any complaints. OBJECTIVE: Vital Signs: Temperature of 98.7 degrees, pulse of 86, respiratory rate 15, blood pressure 93/70, saturating 97% on room air. General: Not in any acute distress. No pallor, cyanosis, clubbing, or icterus. Lungs: Air entry bilaterally equal. No wheeze, rhonchi, crackles. Prominent diastolic murmur affecting second intercostal space. No rub or gallop. Abdomen: Soft, obese, nontender. Active bowel sounds. Extremities: No lower extremity edema. Neurologic: He is drowsy, but arousable, and follows simple commands. LABORATORY DATA: Suggestive of macrocytic anemia, thrombocytopenia, likely in the setting of his cirrhosis, hyperchloremia, normal kidney function. MICROBIOLOGY: No data. ASSESSMENT AND PLAN: 1. Acute metabolic encephalopathy, likely hepatic encephalopathy due to liver cirrhosis associated with chronic hepatitis B and chronic hepatitis C infection. Continue lactulose through enema, and rifaximin once he is able to take by mouth. Continue intravenous medications as needed for agitation. His mental status is improving. 2. Sinus bradycardia, runs of NSVT: His QTc is prolonged which could be the cause. I will stop his haloperidol, Ziprasidone and Zofran and follow up evening EKG. I will also get ECHO to evaluate LV function and regurgitant valvular disease. 2. Suspected liver cirrhosis due to chronic hepatitis B and hepatitis C with history of esophageal varices, status post banding, and peptic ulcer disease. Continue proton pump inhibitors twice daily, and he would need a repeat esophagogastroduodenoscopy once he is more stable. His thrombocytopenia is stable. 3. Right lung multifocal pneumonia, status post 5 days of ceftriaxone. Chest x- ray suggests improvement, though his inspiration is suboptimal. My plan is to hold antibiotics, and follow his blood counts and clinical status. 4. Others. His acute kidney injury because of intravascular volume depletion due to Lasix has resolved; continue heart healthy diet, and stop intravenous Clinimix; he would be counseled about not using opiates and cannabis in the future once he is more stable. DVT prophylaxis SCD. 5. Disposition. The patient appears to be hemodynamically stable, and my plan is to transfer him to medical floor. Plan of care discussed with the nursing team. I called his daughter and updated her about his low heart rate, medications affecting his heart, improvement in encephalopathy and answered all of her questions. cc: Gumaro Matthews MD MTDD
[2018-10-11] MEDS ORDERED: SEROQUEL PO PRN (09:59)
--- NOTE | 2018-10-11 11:46 | EKG Report ---
Test Performed on : 10/11/2018 10:54:33 AM Test Reason : Follow up EKG for QTc Blood Pressure : / mmHG Vent. Rate : 091 BPM Atrial Rate : 091 BPM P-R Int : 156 ms QRS Dur : 146 ms QT Int : 466 ms P-R-T Axes : 036 -26 127 degrees QTc Int : 573 ms Normal sinus rhythm. Left bundle branch block Abnormal ECG When compared with ECG of 11-OCT-2018 05:18, (Unconfirmed) Left bundle branch block is now present Criteria for Anteroseptal infarct are no longer present Confirmed by Rush DEVI, MRose Mary Smart ([id number]) on 10/11/2018 1:01:06 PM
--- NOTE | 2018-10-11 12:56 | GASTROENTEROLOGY PROGRESS NOTE ---
DATE: 10/11/2018 SUBJECTIVE: The patient is resting in bed. He is still confused. He is a little sleepy. He received Seroquel last night. He is in restraints. He does have abdominal distention which is getting worse. According to nursing staff, his mental status is slowly improving. PHYSICAL EXAMINATION: Vital Signs: Temperature of 97.3, pulse rate of 60, respiratory rate of 18, blood pressure of 112/87, saturating 92% on room air. Body weight of 163 pounds and 12.8 ounces. BMI 23 kg/m2. General Appearance: Moderately built, moderate nourished, lying in bed. Currently drowsy. Was able to wake up on command but he still appears a little confused. He is in restraints. HEENT: Positive pallor. No icterus. Neck: Supple. Abdomen is distended. Positive ascites. No guarding or rebound. Extremities: No cyanosis or clubbing. Neurologic: He is sleepy. Was able to wake up on command. Answered questions. LABS: Hemoglobin and hematocrit are 10.7 and 32.5, white count of 4.1, platelet count of 54,000. Sodium 140, potassium 3.9, chloride 110, bicarb 24, anion gap 7, BUN of 31, creatinine 0.8, glucose of 99, calcium is 8.4, phosphorus 3.0, magnesium 1.9. Total bilirubin is 1.21, AST 40, ALT 27, alkaline phosphatase 100, total protein is 6.1, albumin of 2.5. Urine culture showed no growth. Blood culture, one of two sets show coagulase-negative staphylococcus. IMAGING: Chest x-ray done today shows improving right upper and lower lobe pneumonia. IMPRESSION AND PLAN: 1. Hepatitis C and hepatitis B, cirrhosis complicated with ascites, and nonbleeding esophageal varices, status post esophageal band variceal ligation with Dr. Quintero. The patient was admitted with hepatic encephalopathy, likely secondary to medication noncompliance. Patient also has a prior history of spontaneous bacterial peritonitis. 2. We will continue patient on lactulose enemas and Xifaxan and transition to oral lactulose to take 2 to 3 times daily and titrate to 2 to 3 bowel movements in 24 hours. 3. Cirrhosis. Continue to watch liver enzymes and INR. 4. Ascites. Low salt diet. 5. Esophageal varices. Plan is for repeat esophagogastroduodenoscopy with variceal banding prior to discharge. 6. I have discussed with the patient's nurse at bedside regarding social work supervisor consult so that they can plan medication assistance. 7. Acute kidney injury, improving. 8. Anemia. Continue to watch for now. 9. Thrombocytopenia, stable. 10. Coagulopathy. INR is 1.52 on 10/07/2018. We will repeat the INR tomorrow. 11. Peptic ulcer disease. He will continue proton pump inhibitors twice a day. 12. Protein calorie malnutrition. He is on Clinimix. 13. The above plan was discussed with the patient and nurse at bedside. All questions were answered. Please call with any further questions. cc: MD Gumaro Castillo MD MTDD
--- NOTE | 2018-10-11 16:23 | ECHO REPORT ---
ORDER DATE: 10/11/2018 MEASUREMENTS: Septal thickness 1.2 cm. Left ventricular internal diameter in diastole 4.2 cm. Posterior wall thickness 1.2 cm. Left ventricular internal diameter in systole 2.8 cm. Aortic root 4.4 cm. Left atrium 2.8 cm. SUMMARY: 1. Technically difficult study due to limited acoustic window quality. 2. Aortic valve is trileaflet and demonstrates sclerotic changes, but opens adequately on 2- dimensional images. Very mild mitral annular calcification is demonstrated. There is systolic anterior motion of anterior mitral valve leaflet tips with associated moderate mitral regurgitation. Tricuspid valve is without evidence of structural abnormality. Pulmonic valve is not well demonstrated. There is trace tricuspid regurgitation. The aortic root is mildly enlarged. 3. Normal left ventricular chamber size with mild concentric left hypertrophy is demonstrated. There is asymmetric hypertrophy of the basal septum. The estimated left ventricular ejection fraction is approximately 55%. There is abnormal septal motion with paradoxical septal motion and some septal hypokinesis, possibly in part related to interventricular conduction abnormality. There is also hypokinesis of the mid and apical inferior wall. Regional coronary artery disease is suggested. Doppler of left ventricular outflow tract is difficult and off angle. Peak gradient in left ventricular outflow tract appears to be at least 45 mmHg and this possibly may be underestimated, given the angulation of Doppler interrogation. Dynamic left ventricular outflow tract obstructive physiology is suggested. The left atrium is normal in size. The right atrium and right ventricle are normal in size with grossly preserved right ventricular systolic function. 4. No pericardial effusion. 5. Left pleural effusion demonstrated and ascites suggested. 6. Inferior vena cava not well demonstrated. CONCLUSIONS: 1. Technically difficult study. 2. Aortic valve sclerosis without significant stenosis. 3. Systolic anterior motion of mitral valve leaflet tips with moderate mitral regurgitation. 4. Mild concentric left ventricular hypertrophy with asymmetric hypertrophy of basal septum, estimated left ventricular ejection fraction 55%, abnormal septal motion with paradoxical septal motion and hypokinesis, and abnormal wall motion of the mid and apical inferior wall which appear hypokinetic. 5. Dynamic left ventricular outflow tract physiology suggested with difficult to measure gradient in left ventricular outflow tract of at least 45 mmHg, probably underestimated. 6. Mild aortic root enlargement. 7. Left pleural effusion and ascites suggested. cc: MD Gumaro Mathews MD
--- NOTE | 2018-10-11 18:10 | EKG Report ---
Test Performed on : 10/11/2018 6:04:38 PM Test Reason : Follow up QTc Blood Pressure : / mmHG Vent. Rate : 104 BPM Atrial Rate : 104 BPM P-R Int : 144 ms QRS Dur : 150 ms QT Int : 404 ms P-R-T Axes : 025 -19 124 degrees QTc Int : 531 ms Sinus tachycardia. Left bundle branch block Abnormal ECG When compared with ECG of 11-OCT-2018 10:54, No significant change was found Confirmed by Oumar Beverly MD ([id number]) on 10/12/2018 4:28:19 PM
[2018-10-11] MEDS: SODIUM CHLORIDE 0.9% INJ SCH (18:18)
[2018-10-11] MEDS ORDERED: NORCO-7.5 PO ONE (20:45)
[2018-10-12] MEDS ORDERED: NICODERM PATCH TD ONE (02:59)
[2018-10-12] MEDS: NORCO-7.5 PO PRN ×3 (05:01→17:14)
[2018-10-12] MEDS: PROTONIX IV SCH ×3 (05:01→20:21)
[2018-10-12 05:45] LABS: INR 1.81; PROTIME 21.3 Seconds (11.0-16.0)
[2018-10-12 05:46] LABS: PTT 36.3 Seconds (22.3-41.8)
[2018-10-12] MEDS: XIFAXAN PO SCH ×2 (08:37→20:21)
[2018-10-12] MEDS: NICODERM PATCH TD SCH (08:38)
[2018-10-12] MEDS: LACTULOSE PO SCH ×2 (08:39→20:20)
--- NOTE | 2018-10-12 11:07 | PROGRESS NOTE ---
DATE: 10/12/2018 INTERVAL HISTORY: He had frequent bradycardic episodes yesterday. The last episode was around 8 p.m. Since then, he has not had such episodes. He has not been receiving haloperidol or ziprasidone. He is appearing much more alert today. Denies any complaints. We discussed about his clinical examination finding. He states that since discharge last time, he has been very compliant with all of his medications. He denies any chest pain or shortness of breath. Denies any abdominal pain. PHYSICAL EXAMINATION: Vital signs: Temperature 97.7 degrees, pulse 95, respiratory rate 15, blood pressure 110/80, he is saturating 97% on 2 L nasal cannula. General: Does not appear in any acute distress. Oral cavity is dry. Lungs: Air entry bilaterally equal. No wheeze, rhonchi, crackles. Cardiovascular: S1, S2 normal. Prominent diastolic murmur affecting second intercostal space. No rub or gallop. Abdomen: Distended. Firm. Tympanic to percussion in periumbilical region and dullness on the flank. No shifting dullness. Extremity: No lower extremity edema. He is alert. He is oriented x3. LABORATORY DATA: No CBC today. INR suggestive of 1.8. No CMP today. IMAGING: Echocardiogram performed was a technically difficult study which had moderate mitral regurgitation, concentric left ventricular hypertrophy with ejection fraction of 55% and mild aortic root enlargement. There was paradoxical septal motion and hypokinesia which could be in the setting of a left bundle branch block. His troponins were negative. ASSESSMENT AND PLAN: 1. Acute metabolic hepatic encephalopathy due to liver cirrhosis associated with chronic hepatitis B and chronic hepatitis C. Remove Flexi-Seal urine catheter and start oral lactulose and rifaximin for goal of 3 bowel movements in 24 hours. Ultrasound paracentesis has been ordered to rule out spontaneous bacterial peritonitis. His mental status appears to be improving. 2. Sinus bradycardia with a runs of nonsustained ventricular tachycardia, likely because of prolonged QTc. The most recent EKG had a QTc of 530, which is close to his baseline. Continue to avoid QTc prolonging medication. His echo does have vital akinesia. Once he is more alert, I will consider Cardiology evaluation, possibly outpatient. 3. Liver cirrhosis due to chronic hepatitis B and hepatitis C with history of esophageal varices, status post banding, and peptic ulcer disease. Continue proton pump inhibitors b.i.d. His thrombocytopenia and INR are currently stable GI on board. 4. Right lung multifocal pneumonia, status post 5 days of antibiotics. He is no longer hypoxic and x-ray suggests improvement. No leukocytosis. I will continue to monitor. 5. Acute kidney injury because of intravascular volume depletion due to Lasix has resolved; continue heart healthy diet and SCD for DVT prophylaxis considering his esophageal varices. 6. Disposition. I will transfer patient to cardiac step-down unit. Plan of care discussed with him. Yesterday I called his daughter and had informed her about patient's clinical care. All of her questions were answered. cc: Gumaro Matthews MD
--- NOTE | 2018-10-12 13:35 | PROVIDER PROGRESS NOTE ---
Progress Note S: No acute overnight events. Tolerating diet. No confusion. +abdominal distension. +BMs. O: Last Vital Signs Temp 97.5 F L 10/12/18 11:36 Pulse 92 H 10/12/18 11:36 Resp 15 10/12/18 11:36 BP 123/89 10/12/18 11:36 Pulse Ox 97 10/12/18 11:36 Height 5 ft 10 in Weight 163 lb 12.8 oz GEN: NAD, awake, alert, oriented HEENT: anicteric, EOMI NECK: supple, no JVD PULM: CTAB, no wheezing CV: RRR no murmurs ABD: soft NT, BS present; distended; mild ascites EXT: no cce NEURO: encephalopathy resolved, no asterixis LABS: 10/12/18 04:05 INR 1.81 A/P: Mr. Zachary Bolden is a 48 year old man with HCV and HBV cirrhosis c/b ascites and non-bleeding esophageal varices s/p EVL who was readmitted with hepatic encephalopathy likely secondary to med non-compliance. He has had significant improvement. # HBV/HCV cirrhosis - PSE: on lactulose enemas and rifaximin, titrate for 2-3 BMs daily, hold next dose for >=4 BMs in 24 hours - Cirrhosis: stable LFTs: trend LFTs, INR daily - Ascites: holding diuretics; no history of SBP - EV: s/p EVL on 09/11; no history of variceal bleed; patient is due for repeat EGD; will do prior to discharge - HCC: prior CT negative for hepatoma, AFP WNL, repeat US every 6 months - OLT: non-compliant # ALLAN: improving; avoid nephrotoxins # Anemia: stable; no overt bleeding # Coagulopathy: INR improved # Thrombocytopenia: stable # PUD: continue PPI BID # Severe protein calorie malnutrition: low na diet Will follow with you
--- NOTE | 2018-10-12 15:59 | Diag Imaging Result Doc PS360 ---
US ABD PARACENTESIS W S/I - 10/12/2018 INDICATION: Rule out SBP COMPARISON: None FINDINGS: The risks and benefits of the procedure were discussed with the patient. All questions were answered. Written and verbal consent was obtained. Ultrasound scanning demonstrated ascites. Overlying skin was prepped and draped in sterile fashion. Anesthesia was achieved with injection of 10 cc 1% lidocaine. The paracentesis catheter was advanced until the return of ascites fluid. 8.1 L was aspirated. The catheter was withdrawn intact. The patient reported no symptoms from the procedure. IMPRESSION: Successful and uncomplicated ultrasound-guided paracentesis. Electronically signed by Deshawn Sharpe 10/12/2018 3:57 PM
[2018-10-12] MEDS: LIDODERM TOP SCH ×2 (17:42→20:21)
[2018-10-13] MEDS: ZOFRAN IV PRN ×2 (01:42→08:22)
[2018-10-13] MEDS: NORCO-7.5 PO PRN ×3 (01:42→16:07)
[2018-10-13] MEDS: NICODERM PATCH TD SCH (08:04)
[2018-10-13] MEDS: PROTONIX IV SCH (08:04)
[2018-10-13] MEDS: SODIUM CHLORIDE 0.9% INJ SCH (08:04)
[2018-10-13] MEDS: XIFAXAN PO SCH ×2 (08:04→20:56)
[2018-10-13] MEDS: LACTULOSE PO SCH ×2 (08:05→20:56)
[2018-10-13] MEDS: LIDODERM TOP SCH (08:05)
[2018-10-13 08:43] LABS: BASO% 1.1 % (0.0-0.8); EOS# 0.24 X1000 (0.0-0.7); EOS% 2.7 % (0.0-10.0); HEMATOCRIT 40.3 % (42.0-52.0); HEMOGLOBIN 13.6 g/dL (14.0-18.0); IMM GRAN# 0.12 X1000 (0.0-0.04); IMM GRAN% 1.4 % (0.0-0.5); LYMPH# 1.15 X1000 (1.2-3.4); MCH 35.6 PG (27-31); MCHC 33.7 g/dL (33-37); MCV 105.5 FL (81-99); MONO# 0.97 X1000 (0.11-0.59); MONO% 10.9 % (1.7-9.3); MPV 12.2 FL (7.4-10.4); NEUT# 6.28 X1000 (1.4-6.5); NEUT% 70.9 % (42.2-75.2); PLT 60 X1000 (130-400); RBC 3.82 XMIL (4.7-6.1); RDW 16.4 % (11.5-14.5); WBC 8.86 X1000 (4.8-10.8)
[2018-10-13] MEDS ORDERED: ALBUMIN 25% IV SCH (09:00)
[2018-10-13] MEDS ORDERED: ALBUMIN 25% IV ONE (09:00)
[2018-10-13] MEDS ORDERED: FLOMAX PO ONE (09:19)
[2018-10-13 09:27] LABS: AGAP 10; ALB/GLOB RATIO 0.6; ALBUMIN 2.7 g/dL (3.5-5.0); ALKALINE PHOSPHATASE 124 U/L (32-122); BUN 22 mg/dL (8-22); CALCIUM 7.7 mg/dL (8.8-10.2); CHLORIDE 104 mmol/L (98-107); COSMO 269; ESTIMATED GFR > 60; GLUCOSE 79 mg/dL (70-104); GOT 80 U/L (10-34); GPT 51 U/L (10-44); MAGNESIUM 1.8 mg/dL (1.5-2.7); PHOSPHORUS 3.2 mg/dL (2.7-4.5); POTASSIUM 3.9 mmol/L (3.5-5.1); SODIUM 133 mmol/L (136-145); TCO2 19 mmol/L (25-35); TOTAL PROTEIN 7.1 g/dL (6.3-8.3)
--- NOTE | 2018-10-13 09:48 | PROGRESS NOTE ---
DATE: 10/13/2018 INTERVAL HISTORY: No acute events overnight. He did have urinary retention for which he received a Perez catheter. He is feeling fine. Otherwise, denies any complaints. He has questions about medical marijuana and I discussed that he should have a discussion with his outpatient provider, billet inspector. The patient denies any new complaints. He is eating diet well. We had discussion about being compliant with medications. His paracentesis fluid has not been sent to the lab for analysis yet. Currently temperature 98.3 degrees, pulse 93, respiratory rate 18, blood pressure 108/71, saturating 100% on room air. PHYSICAL EXAMINATION: General: Not in any acute distress. Appears pleasant. Oral cavity is dry. Air entry bilaterally equal. No wheeze, rhonchi, crackles. S1, S2 normal. Diastolic murmur affecting 2nd intercostal space. No rub or gallop. Abdomen is distended, firm, tympanic to percussion. However, his distention has gone down and dullness to flank has also gone down. No shifting dullness. No lower extremity edema. He is alert, oriented x3. LABS: Suggestive of macrocytic anemia. His kidney function has normalized, though the BMP is pending. Ascitic fluid studies are not back. ASSESSMENT AND PLAN: 1. Acute hepatic encephalopathy due to liver cirrhosis, likely due to noncompliance with medication. Follow up ascitic fluid to rule out spontaneous bacterial peritonitis. He does have chronic hepatitis B and hepatitis C. Continue lactulose and rifaximin with a goal of 3 bowel movements in 24 hours. Follow up ascitic fluid studies. He is status post 8 L of intra- abdominal fluid removal. Give 50 g of albumin. 2. Acute urinary retention. I will give him removal of Perez and voiding trial and will start him on tamsulosin as necessary. 3. Sinus bradycardia and runs of nonsustained ventricular tachycardia because of prolonged QTc in the setting of use of haloperidol and ziprasidone, now resolved. Continue to monitor. 4. Liver cirrhosis due to chronic hepatitis B and C with history of esophageal varices status post banding and peptic ulcer disease. Continue proton pump inhibitors b.i.d. His thrombocytopenia is stable. Monitor INR and liver function tests. 5. Apical hypokinesia and asymmetric interventricular septum hypertrophy on echocardiogram. He denies any chest pain, known history of coronary artery disease. He does have baseline left bundle branch block. I would advise him outpatient Cardiology followup. 6. His right lung multifocal pneumonia has resolved after 5 days of IV antibiotics. 7. Acute kidney injury, now resolved, follow up with BMP and start on Lasix and spironolactone as tolerated for his recurrent ascites. 8. Continue SCDs for DVT prophylaxis considering esophageal varices. DISPOSITION: Continue to monitor patient in step-down unit. Gastroenterology on board and planning a repeat EGD soon after which I would consider discharging him hopefully on Monday or Monday. Plan of care discussed with the patient. His questions have been answered. cc: Gumaro Matthews MD
--- NOTE | 2018-10-13 11:06 | PROVIDER PROGRESS NOTE ---
Progress Note S: No acute overnight events. Afebrile. Patient had LVP yesterday with removal of 8.1L of ascites. No N/V/F, CP, SOB. He reports some abdominal discomfort and is requesting medical marijuana and IV pain meds. No confusion. His ex-, his primary caregiver, reports that he was taking all his medications at home. However, he was not having 2-3 BMs daily at home. O: Last Vital Signs Temp 98.3 F 10/13/18 07:49 Pulse 93 H 10/13/18 07:49 Resp 18 10/13/18 07:49 BP 108/71 10/13/18 07:49 Pulse Ox 100 10/13/18 07:49 Height 5 ft 10 in Weight 162 lb 12.8 oz EN: NAD, awake, alert, oriented HEENT: anicteric, EOMI NECK: supple, no JVD PULM: CTAB, no wheezing CV: RRR no murmurs ABD: soft NT, BS present; minimal distension, paracentesis site c/d/i EXT: no cce NEURO: encephalopathy resolved, no asterixis LABS: 10/13/18 10/13/18 08:28 08:28 WBC 8.86 Hgb 13.6 L Plt Count 60 L Sodium 133 L Potassium 3.9 Chloride 104 Carbon Dioxide 19 L BUN 22 Creatinine 1.0 Total Bilirubin 1.90 H AST 80 H ALT 51 H Alkaline Phosphatase 124 H Total Protein 7.1 Albumin 2.7 L A/P: Mr. Zachary Bolden is a 48 year old man with HCV and HBV cirrhosis c/b ascites and non-bleeding esophageal varices s/p EVL who was readmitted with hepatic encephalopathy likely secondary to med non-compliance. He has had significant improvement with lactulose. LVP was done yesterday with significant improvement in abdominal distension. Fluid analysis was not sent and he did not received albumin. Renal function stable. # HBV/HCV cirrhosis - PSE: on lactulose enemas and rifaximin, titrate for 2-3 BMs daily, hold next dose for >=4 BMs in 24 hours - Cirrhosis: stable LFTs: trend LFTs, INR daily - Ascites: resume home diuretics; low Na diet - EV: s/p EVL on 09/11; no history of variceal bleed; patient is due for repeat EGD can defer to outpatient - HCC: prior CT negative for hepatoma, AFP WNL, repeat US every 6 months - OLT: non-compliant # ALLAN: resolved; avoid nephrotoxins # Anemia: stable; no overt bleeding # Coagulopathy: INR improved # Thrombocytopenia: stable # PUD: continue PPI BID # Severe protein calorie malnutrition: low na diet Will follow with you. Please call with questions. Patient ok to be discharged from [facility] with follow-up in 1-2 weeks
[2018-10-13] MEDS: ALDACTONE PO SCH (16:06)
[2018-10-13] MEDS: LASIX PO SCH (16:07)
--- NOTE | 2018-10-13 17:29 | EKG Report ---
Test Performed on : 10/13/2018 4:59:06 PM Test Reason : chest pain Blood Pressure : / mmHG Vent. Rate : 105 BPM Atrial Rate : 105 BPM P-R Int : 148 ms QRS Dur : 162 ms QT Int : 412 ms P-R-T Axes : 033 -10 130 degrees QTc Int : 544 ms Sinus tachycardia. Left bundle branch block Abnormal ECG When compared with ECG of 11-OCT-2018 18:04, No significant change was found Confirmed by Oumar Beverly MD ([id number]) on 10/16/2018 12:05:21 PM
[2018-10-13] MEDS: PROTONIX PO SCH (20:56)
[2018-10-14] MEDS: NORCO-7.5 PO PRN ×2 (00:28→10:29)
[2018-10-14] MEDS: ZOFRAN IV PRN ×2 (00:28→04:27)
[2018-10-14] MEDS ORDERED: NORCO-7.5 PO ONE (04:16)
[2018-10-14] MEDS: PROTONIX PO SCH ×2 (05:43→06:01)
[2018-10-14 07:50] VITALS: BP 103/73
[2018-10-14 08:10] LABS: AGAP 7; BUN 18 mg/dL (8-22); CALCIUM 7.9 mg/dL (8.8-10.2); CHLORIDE 101 mmol/L (98-107); COSMO 261; CREATININE 1.1 mg/dL (0.7-1.2); ESTIMATED GFR > 60; GLUCOSE 107 mg/dL (70-104); POTASSIUM 3.8 mmol/L (3.5-5.1); SODIUM 129 mmol/L (136-145); TCO2 21 mmol/L (25-35)
[2018-10-14] MEDS: LASIX PO SCH (08:51)
[2018-10-14] MEDS: XIFAXAN PO SCH (08:51)
[2018-10-14] MEDS: ALDACTONE PO SCH (08:51)
[2018-10-14] MEDS: NICODERM PATCH TD SCH ×2 (08:52→08:53)
[2018-10-14] MEDS: LACTULOSE PO SCH (08:52)
[2018-10-14] MEDS: LIDODERM TOP SCH (08:52)
[2018-10-14] MEDS ORDERED: FLOMAX PO SCH (09:00)
--- NOTE | 2018-10-14 10:32 | DISCHARGE SUMMARY ---
ADMISSION DATE: 10/05/2018 DISCHARGE DATE: 10/14/2018 DISCHARGE DISPOSITION: Home. DISCHARGE CONDITION: Hemodynamically stable. He is alert and oriented x3. He is walking in the hallway without any discomfort. He is able to make urine by himself without any retention. He has been restarted on diuretics. DISCHARGE DIAGNOSES: 1. Acute hepatic encephalopathy, likely due to inadequate compliance with medications. 2. Liver cirrhosis due to chronic hepatitis B and hepatitis C. 3. Prolonged encephalopathy during hospitalization due to hepatic encephalopathy. 4. Acute urinary retention requiring straight catheterization. 5. Episodes of sinus bradycardia and nonsustained ventricular tachycardia due to prolonged QTC associated with use of haloperidol and ziprasidone. 6. Apical hypokinesia and asymmetrical interventricular septal hypertrophy without known history of coronary artery disease or without any chest pain on exertion. 7. Right lung multifocal pneumonia. 8. Acute kidney injury. 9. Decompensated liver cirrhosis leading to ascites. OTHER DIAGNOSES: 1. History of left bundle branch block. 2. History of esophageal varices, nonbleeding, requiring esophageal banding in 08/2018. 3. History of incarceration. 4. History of active tobacco abuse. DISCHARGE MEDICATIONS: Comprehensive metabolic panel blood test has been provided to him. Spironolactone 25 mg daily, lactulose 30 mL b.i.d., Lasix 40 mg daily, nicotine 21 mg daily, Lasix 20 mg daily, pantoprazole 40 mg b.i.d., rifaximin 550 mg b.i.d. CONSULTATIONS DURING HOSPITALIZATION: Gastroenterology, Dr. Quintero. PHYSICAL EXAMINATION: Discharge Vital Signs: Temperature 98.6 degrees, pulse 88, respiratory rate 18, blood pressure 103/73, saturating 98% on room air. General: Does not appear in acute distress. HEENT: Oral cavity is moist. Lungs: Air entry bilaterally equal. No wheeze, rhonchi, crackles. Cardiovascular: S1, S2 normal. Diastolic murmur affecting the second intercostal space. No rub or gallop. Abdomen: Distended. Tympanic to percussion in the center of the abdomen, with dullness on the flanks, with shifting dullness. Extremities: No lower extremity edema. Neurologic: He is alert and oriented x3. PROCEDURES DURING HOSPITAL ADMISSION: He underwent therapeutic paracentesis with about 8.1 L of fluid removal, following which he was given 50 grams of albumin. HOSPITAL COURSE SUMMARY: Mr. Bolden is a 48-year-old man with past medical history of chronic hepatitis B, chronic hepatitis C, liver cirrhosis, and multiple admissions over the last couple of months for acute hepatic encephalopathy and decompensated cirrhosis with ascites, who came in with yet another episode of acute encephalopathy, where he was having multiple fall episodes and confusion at home. According to the admission records, when the EMS arrived to the patient's side, he was altered. He was combative. He was screaming, yelling, and hitting the staff. He was brought to the emergency room. In the emergency room, he was found to be very altered. He was also found to have acute kidney injury, and had ascites, so was admitted to ICU for further management. There was initially a question of small right temporal subarachnoid hemorrhage. However, it was not detected on a repeat CT scan, so it was likely thought to be artifact. In the ICU, he was managed with intravenous benzodiazepines, intravenous haloperidol, and intravenous ziprasidone as he was extremely agitated. Rectal tube was inserted, and he was given enema. After a prolonged course of about 4 to 5 days, his encephalopathy had resolved, and rectal tube was removed, and he was able to take lactulose and rifaximin by mouth, and then he was to slowly transitioned to PVC unit. Because of multiple haloperidol and ziprasidone use, he did have episodes of prolonged QTc as high as 590, and episodes of bradycardia with heart rate as low as 40, following which these medications were stopped, and his bradycardia episodes had resolved. Though initially he did not have tapable fluid, later on his belly became distended, and he underwent therapeutic paracentesis with about 8 L of ascitic fluid drained. Initially, his diuretics were held considering acute kidney injury, which were restarted at the time of discharge, and a BMP slip was given. Echocardiogram had asymmetric septal hypertrophy, though he did not have any chest pain. He was advised to follow up with Cardiology as an outpatient. TIME SPENT: More than 30 minutes were spent discharging the patient. All of his questions were answered. The patient has Medicare, and Director Of Perioperative Services has started working on Medicaid as well. cc: Gumaro Matthews MD
== END 2018-10-14 11:00 | disposition home or self-care (01) | DRG 432 ==
LOC: SUPCPDRO → ED 21:29 → SUATTDRO 10-06 03:32 → 3N 10-06 03:32 → ICU 10-06 04:18 → 2N 10-12 11:40
PROVIDERS: ATTEND Internal Medicine

== ENCOUNTER 2018-10-21 04:42 | Inpatient (IN) ==
[2018-10-21] MEDS ORDERED: NS 1,000 ML IV ONE (04:49)
[2018-10-21] MEDS ORDERED: ATIVAN ONE (04:54)
[2018-10-21] MEDS ORDERED: ATIVAN IM ONE (05:03)
[2018-10-21 06:32] LABS: BASO# 0.03 X1000 (0.0-0.2); BASO% 0.3 % (0.0-0.8); EOS# 0.07 X1000 (0.0-0.7); EOS% 0.6 % (0.0-10.0); HEMATOCRIT 28.2 % (42.0-52.0); HEMOGLOBIN 10.6 g/dL (14.0-18.0); IMM GRAN# 0.09 X1000 (0.0-0.04); IMM GRAN% 0.8 % (0.0-0.5); LYMPH# 1.16 X1000 (1.2-3.4); MCH 42.2 PG (27-31); MCHC 37.6 g/dL (33-37); MCV 112.4 FL (81-99); MONO# 1.35 X1000 (0.11-0.59); MONO% 11.6 % (1.7-9.3); MPV 12.4 FL (7.4-10.4); NEUT# 8.91 X1000 (1.4-6.5); NEUT% 76.7 % (42.2-75.2); PLT 89 X1000 (130-400); RBC 2.51 XMIL (4.7-6.1); RDW 19.8 % (11.5-14.5); WBC 11.61 X1000 (4.8-10.8)
[2018-10-21 07:34] LABS: AGAP 20; ALB/GLOB RATIO 0.7; ALBUMIN 2.5 g/dL (3.5-5.0); ALKALINE PHOSPHATASE 135 U/L (32-122); BUN 55 mg/dL (8-22); CALCIUM 8.1 mg/dL (8.8-10.2); CHLORIDE 99 mmol/L (98-107); COSMO 285; CREATININE 2.4 mg/dL (0.7-1.2); GLUCOSE 101 mg/dL (70-104); GOT 78 U/L (10-34); GPT 55 U/L (10-44); LIPASE 79 U/L (13-60); POTASSIUM 4.6 mmol/L (3.5-5.1); SODIUM 135 mmol/L (136-145); TCO2 16 mmol/L (25-35); TOTAL BILIRUBIN 1.56 mg/dL (0.20-1.00); TOTAL PROTEIN 6.3 g/dL (6.3-8.3)
--- NOTE | 2018-10-21 07:41 | Diag Imaging Result Doc PS360 ---
EXAM: CHEST-1 VIEW - 10/21/2018 HISTORY: ams TECHNIQUE: Portable chest COMPARISON: 10/11/2018 FINDINGS: Heart size appears normal. Inspiration is somewhat shallow. There is subsegmental atelectasis at the right base. There is mild interstitial marking prominence on the left. There is a small right pleural effusion. There is no pneumothorax identified. IMPRESSION: Somewhat shallow inspiration. Subsegmental atelectasis at right base. Mild interstitial marking prominence on the left. Small right pleural effusion. Electronically signed by Saturnino Tovar 10/21/2018 7:39 AM
--- NOTE | 2018-10-21 07:44 | EKG Report ---
Test Performed on : 10/21/2018 05:31:11 AM Test Reason : ams Blood Pressure : / mmHG Vent. Rate : 091 BPM Atrial Rate : 091 BPM P-R Int : 146 ms QRS Dur : 136 ms QT Int : 446 ms P-R-T Axes : 024 002 142 degrees QTc Int : 548 ms Normal sinus rhythm. Left bundle branch block Abnormal ECG When compared with ECG of 21-OCT-2018 05:30, (Unconfirmed) fusion complexes are no longer present Unconfirmed Result
--- NOTE | 2018-10-21 08:53 | PROVIDER DOCUMENTATION ---
HPI-General Adult - General Chief Complaint: Altered Mental Status Stated Complaint: aggitated Time Seen by Provider: 10/21/18 04:44 Source: EMS, old records Allergies/Adverse Reactions: Patient Allergies Allergy/AdvReac Type Severity Reaction Status Date / Time No Known Allergies Allergy Verified 10/18/18 11:14 Home Medications: Home Medication List Medication Instructions Recorded Confirmed Last Taken Type Pantoprazole [Protonix] 40 mg PO BID #60 tab 09/13/18 10/18/18 10/18/18 Rx Furosemide [Lasix] 20 mg PO DAILY #90 tab 10/14/18 10/18/18 10/18/18 Rx Lactulose 30 ml PO BID #1 ml 10/14/18 10/18/18 10/18/18 Rx Rifaximin [Xifaxan] 550 mg PO BID #60 tab 10/14/18 10/18/18 10/18/18 Rx Fentanyl [Duragesic] 0.5 patch TD PRN PRN 10/18/18 10/18/18 10/17/18 History Hydrocodone/Ibuprofen 1 tab PO QHS 10/18/18 10/18/18 10/18/18 History [Hydrocodone-Ibuprofen 7.5-200] Spironolactone [Aldactone] 25 mg PO BID 10/18/18 10/18/18 10/18/18 History - History of Present Illness -Gen Adult Nature of Presenting Problems: Mr. Bolden is a 48 yo w/ a hx of cirrhosis complicating hep B&C and recurrent hepatic encephalopathy. he reportedly lives at "home" (w/ family?) and his meds incl. lactulose however there have been serial concerns expressed re: his Rx compliance. reported he was brought back this a.m. altered and inappropriate, described by EMS as hallucinating and combative. he was given Ketamine 50 mg IM per EMS. at the time of my attempted initial exam he is sleeping. Review of Systems - Adult - REVIEW OF SYSTEMS - ADULT ROS:: unobtainable per condition Constitutional: reports: no symptoms reported, other (altered per report of family and nursing service) Past History - Adult - PAST MEDICAL HISTORY-ADULT Review of Records: reports: Old Records Reviewed Major Childhood Illnesses: reports: denies history Cardiovascular: reports: HTN Respiratory: reports: denies history Gastrointestinal: reports: hepatitis (b & c), liver disease, other (spleen enlargement) Obstetrical/Gynecological: reports: denies history Genitourinary: reports: denies history Musculoskeletal: reports: denies history Neurological: reports: denies history Endocrine/Immune: reports: denies history Other Conditions: reports: denies history - PRIOR SURGERIES/PROCEDURES Surgical/Procedure History: reports: other - IMMUNIZATION STATUS Childhood Immunizations: See Nurse Assessment Flu Vaccine: See Nurse Assessment - FAMILY HISTORY Family History: reviewed, not pertinent Physical Exam-General - PHYSICAL EXAM-ADULT Initial Vital Signs Reviewed: Yes - CONSTITUTIONAL General Appearance: no apparent distress, lethargic, slow to respond - EYES Eyes: negative: scleral icterus - HEAD, EARS, NOSE, MOUTH & THROAT HENMT: moist mucous membranes - NECK Neck: supple - RESPIRATORY Respiratory: lungs clear - CARDIOVASCULAR Cardiovascular: normal peripheral pulses, regular rate, rhythm - GASTROINTESTINAL (ABDOMEN) Abdominal Exam: non tender, distended - MUSCULOSKELETAL Back Exam: no CVA tenderness Extremity: normal range of motion Peripheral Pulses: radial (R): 2+, radial (L): 2+ - SKIN Integumentary: negative: ecchymosis, embolic lesions, jaundice, purpura, rash - NEUROLOGIC 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, grossly normal Progress - PLAN OF CARE/RESULTS Progress/Plan/Lab Results: Vital Signs - 8 hr 10/21/18 04:48 Temperature 98.2 F Pulse Rate 59 L Respiratory Rate 16 Blood Pressure 90/61 O2 Sat by Pulse Oximetry 97 Laboratory Results - last 24 hr 10/21/18 10/21/18 10/21/18 06:18 06:18 06:18 WBC 11.61 H RBC 2.51 L Hgb 10.6 L Hct 28.2 L MCV 112.4 H MCH 42.2 H MCHC 37.6 H RDW Std Deviation 19.8 H Plt Count 89 L MPV 12.4 H Immature Gran % (Auto) 0.8 H Neut % (Auto) 76.7 H Lymph % (Auto) 10.0 L [place] % (Auto) 11.6 H Eos % (Auto) 0.6 Baso % (Auto) 0.3 Immature Gran # (Auto) 0.09 H Neut # (Auto) 8.91 H Lymph # (Auto) 1.16 L [place] # (Auto) 1.35 H Eos # (Auto) 0.07 Baso # (Auto) 0.03 Sodium Potassium Chloride Carbon Dioxide Anion Gap BUN Creatinine BUN/Creatinine Ratio Glucose Calculated Osmolality Calcium Total Bilirubin AST ALT Alkaline Phosphatase Ammonia 119 H Troponin T Jkl-B-Hglkaglryls Pept Total Protein Albumin Globulin Albumin/Globulin Ratio Lipase Plasma/Serum Ethyl Alc 10/21/18 10/21/18 10/21/18 06:18 06:18 06:18 WBC RBC Hgb Hct MCV MCH MCHC RDW Std Deviation Plt Count MPV Immature Gran % (Auto) Neut % (Auto) Lymph % (Auto) [place] % (Auto) Eos % (Auto) Baso % (Auto) Immature Gran # (Auto) Neut # (Auto) Lymph # (Auto) [place] # (Auto) Eos # (Auto) Baso # (Auto) Sodium 135 L Potassium 4.6 Chloride 99 Carbon Dioxide 16 L Anion Gap 20 BUN 55 H Creatinine 2.4 H BUN/Creatinine Ratio 23 Glucose 101 Calculated Osmolality 285 Calcium 8.1 L Total Bilirubin 1.56 H AST 78 H ALT 55 H Alkaline Phosphatase 135 H Ammonia Troponin T 0.019 Twc-Z-Mvlkqaptsva Pept 2402 H Total Protein 6.3 Albumin 2.5 L Globulin 3.8 Albumin/Globulin Ratio 0.7 Lipase 79 H Plasma/Serum Ethyl Alc Orders Category Date Time Status Nursing- Obtain EKG ONCE Care 10/21/18 04:47 Active CHEST-1 VIEW [RAD] Stat Exams 10/21/18 04:47 Completed ALCOHOL BLOOD Stat Lab 10/21/18 06:18 Completed AMMONIA [CHEM] Stat Lab 10/21/18 06:18 Completed CBC WITH ELECTRONIC DIFF [HEME] Stat Lab 10/21/18 06:18 Completed COMPREHENSIVE METABOLIC PANEL [CHEM] Stat Lab 10/21/18 06:18 Completed LIPASE [CHEM] Stat Lab 10/21/18 06:18 Completed PRO B-NATRIURETIC PEPTIDE Stat Lab 10/21/18 06:18 Completed TROPONIN T Stat Lab 10/21/18 06:18 Completed URINALYSIS W/POSS RFLX CULT [URINALYSIS] Stat Lab 10/21/18 04:47 Uncollected URINE DRUG SCREEN Stat Lab 10/21/18 04:47 Uncollected 0.9% Sodium Chloride Inj [Ns] 1,000 ml Med 10/21/18 04:49 Discontinued IV 999 mls/hr Lorazepam [Ativan] Med 10/21/18 04:54 Discontinued 2 mg .ROUTE .STK-MED ONE Lorazepam [Ativan] Med 10/21/18 05:03 Discontinued 2 mg IM NOW ONE EKG [EKG] Stat Ther 10/21/18 04:47 Ordered Result Diagrams: 10/21/18 06:18 10/21/18 06:18 - REASSESSMENT Reassessment #1 Time Reassessed: 10:07 Status: unchanged (pt remains largely somnolent following the IM ketamine given him by EMS. ammonia elevated to 119 (vs. 34 3 weeks ago @ hosp discharge), Na 127. will consult Hosp for admission.) - CONSULTS/PCP/HOSPITALIST Notification #1 *Consult/PCP/Hospitalist*: ([facility]) Time Discussed: 10:08 Consult Disposition: Admit ((Dr. Marroquin)) Departure - Departure Date of Disposition Decision: 10/21/18 Time of Disposition Decision: 10:09 DIAGNOSIS: Encephalopathy acute Disposition: ADMITTED INPATIENT 09 Certified Medical Emergency: Emergent Condition: Stable Referrals and Follow-Ups: None,PCP [Primary Care Provider] - - Critical Care Note This patient required my direct & personal management of CC.: No Attestation - Physician/ DIANA Attestation The physician spent face to face time with patient:: Yes Advanced Practice Provider documentation review:: Supervising physician onsite and consulted in the evaluation and care of this patient. The physician did have a face to face encounter with the patient.
[2018-10-21 09:42] LABS: URINE SOURCE CLEAN CATCH
[2018-10-21 09:45] LABS: UR EPITHELIAL CELLS <10 /HPF (<10); URINE BACTERIA NEGATIVE /HPF; URINE RBC <10 /HPF (<10); URINE WBC <10 /HPF (<10)
[2018-10-21 09:46] LABS: BILIRUBIN URINE NEGATIVE (NEGATIVE); BLOOD URINE TRACE (NEGATIVE); COLOR YELLOW; GLUCOSE URINE NEGATIVE (NEGATIVE); KETONE URINE NEGATIVE (NEGATIVE); LEUKOCYTES URINE NEGATIVE (NEGATIVE); NITRITE URINE NEGATIVE (NEGATIVE); PH URINE 5.5; PROTEIN URINE TRACE mg/dL (NEGATIVE); SP GRAVITY URINE 1.017; TURBIDITY URINE CLEAR (CLEAR); UROBILINOGEN URINE NORMAL (NORMAL)
--- NOTE | 2018-10-21 09:59 | ED EKG INTERP ---
This chart was entered by Silvina Mosqueda Scribe, acting as scribe for Jarrod Haider MD. EKG Interpretation - EKG Time of EKG reading by physician:: 05:31 EKG Read and Signed by:: Jarrod Haider EKG Interpretation (*Must complete 3 of following elements*): Abnormal Rate: 91 Rhythm: nsr [place]: normal QRS: LBB TN Interval: normal ST Wave: normal Attestation - Physician/ DIANA Attestation Patient care was provided by Advanced Practice Provider:: No The physician spent face to face time with patient:: Yes Advanced Practice Provider documentation review:: Supervising physician onsite and consulted in the evaluation and care of this patient. The physician did have a face to face encounter with the patient. This chart was documented by the indicated scribe, (Silvina Mosqueda Scribe) and accurately reflects the services I performed and decisions made by me, Jarrod Haider MD, as attested by the provider's signature.
[2018-10-21 10:27] LABS: UR AMPHETAMINES QUAL NONE DETECTED (NONE DETECT); UR BARBITUATES QUAL NONE DETECTED (NONE DETECT); UR BENZODIAZEPIN QUAL NONE DETECTED (NONE DETECT); UR CANNABINOIDS QUAL PRESUMPTIVE POSITIVE (NONE DETECT); UR COCAINE QUAL NONE DETECTED (NONE DETECT); UR METHADONE QUAL NONE DETECTED (NONE DETECT); UR OPIATES QUAL PRESUMPTIVE POSITIVE (NONE DETECT); UR OXYCODONE QUAL NONE DETECTED (NONE DETECT); UR PCP QUAL NONE DETECTED (NONE DETECT)
[2018-10-21] MEDS ORDERED: ATIVAN IV PRN (11:02)
[2018-10-21] MEDS ORDERED: LACTULOSE MISC ONE (11:25)
[2018-10-21 12:47] LABS: INR 1.53; PROTIME 18.7 Seconds (11.0-16.0)
[2018-10-21 12:48] LABS: PTT 33.1 Seconds (22.3-41.8)
[2018-10-21] MEDS ORDERED: NS 250 ML ONE (13:36)
[2018-10-21] MEDS ORDERED: FLAGYL 500 MG/NS 500 MG/100 ML IVPB IV SCH ×2 (13:45→17:00)
[2018-10-21 14:14] LABS: URINE SOURCE CATH
[2018-10-21 14:28] LABS: UR CREAT RANDOM 122.3 mg/dL (14-26); UR PROT RANDOM 22.5 mg/dL; UR SODIUM < 10 mmoll
--- NOTE | 2018-10-21 14:30 | HISTORY AND PHYSICAL ---
ADDENDUM: This is a 48-year-old male, well known to our service with recurrent admissions for hepatic encephalopathy. He has a history of hepatitis B and hepatitis C. He is not very compliant with his medications. He did have an episode of nonsustained ventricular tachycardia associated with a prolonged QTc. He has a history of varices. In any case, he came in today with confusion and agitation, which is his usual presentation. In any case, the patient was evaluated. He went home, came back with severe agitation, now he is completely disoriented. I am not clear what his social situation is at home. Apparently, he was given ketamine prior to admission here. He appears cachectic, confused. Mouth is dry. No current alcohol use, but he does have opiates and cannabinoids on board, which I do not think he was discharged on pain medications, so I am not sure how those came on board, and he was discharged almost exactly a week ago. He is again admitted with hepatic encephalopathy. We are going to give him medications. IV access is an issue. We may need to consider some long-term access because he consistently gets those issues. He is also extremely dehydrated, so we are going to give him fluids. Continue to follow. cc: Joaquín Chua MD
[2018-10-21 14:36] LABS: BILIRUBIN URINE NEGATIVE (NEGATIVE); BLOOD URINE NEGATIVE (NEGATIVE); COLOR YELLOW; GLUCOSE URINE NEGATIVE (NEGATIVE); KETONE URINE NEGATIVE (NEGATIVE); LEUKOCYTES URINE NEGATIVE (NEGATIVE); NITRITE URINE NEGATIVE (NEGATIVE); PH URINE 5.5; PROTEIN URINE NEGATIVE (NEGATIVE); SP GRAVITY URINE 1.016; TURBIDITY URINE HAZY (CLEAR); UROBILINOGEN URINE NORMAL (NORMAL)
[2018-10-21 14:37] LABS: UR EPITHELIAL CELLS <10 /HPF (<10); URINE BACTERIA NEGATIVE /HPF; URINE RBC <10 /HPF (<10); URINE WBC <10 /HPF (<10)
[2018-10-21 14:47] LABS: URINE CASTS GRANULAR PRESENT; URINE YEAST NONE SEEN
[2018-10-21 14:48] LABS: URINE CRYSTALS CA OXALATE PRESENT; URINE SMALL ROUND CELLS TRANS PRESENT
[2018-10-21] MEDS: HALDOL IM PRN ×3 (14:56→23:59)
[2018-10-21] MEDS: ATIVAN IM PRN ×3 (14:56→23:59)
[2018-10-21] MEDS: NS 1,000 ML IV SCH ×2 (14:58→17:01)
[2018-10-21] MEDS: LEVAQUIN 500 MG/D5W 500 MG/100 ML IVPB IV SCH (17:00)
[2018-10-21] MEDS: SODIUM CHLORIDE 0.9% INJ SCH (17:00)
[2018-10-21] MEDS: PROTONIX IV SCH (17:00)
[2018-10-21] MEDS: VITAMIN K 10 MG in NS 50 ML IV SCH (17:17)
--- NOTE | 2018-10-21 18:34 | GASTROENTEROLOGY CONSULTATION ---
DATE: 10/21/2018 GASTROENTEROLOGY CONSULTATION: PRIMARY CARE DOCTOR: None. REASON FOR CONSULTATION: Hepatic encephalopathy. HISTORY OF PRESENT ILLNESS: Mr. Bolden is a 48-year-old male who has been in and out of the hospital multiple times in the last few months. He has history of chronic hepatitis B and C. He has history of liver cirrhosis complicated with esophageal varices, hepatic encephalopathy, ascites and spontaneous bacterial peritonitis. The patient has been noncompliant with his medications. I do not think he can afford his medications because of insurance reasons. He was admitted today for confusion, agitation, and likely hepatic encephalopathy. All history is obtained from the patient's records. The patient is confused and cannot provide any information. No documented nausea, vomiting, or vomiting blood. In the ER he was given some ketamine IM per EMS. PAST MEDICAL HISTORY: 1. Hepatic encephalopathy. Liver cirrhosis secondary to chronic hepatitis B and C. 2. Urinary retention. 3. History of sinus bradycardia and nonsustained ventricular tachycardia. 4. Right lung multifocal pneumonia. 5. Acute kidney injury. 6. Decompensated liver cirrhosis complicated with ascites and spontaneous bacterial peritonitis. 7. Chronic hepatitis B and C. 8. Medication noncompliance. 9. History of esophageal varices. He had an EGD in August 2018 and required banding. 10. Chronic tobacco abuse. PAST SURGICAL HISTORY: EGD and esophageal banding. SOCIAL HISTORY: He smokes half a pack a day. He has history of polysubstance abuse, but these are all from the old records. REVIEW OF SYSTEMS: Could not be obtained. ALLERGIES: No known drug allergies. MEDICATIONS IN THE HOSPITAL: Include Haldol, lactulose 30 mL p.o. b.i.d., Levaquin 500 mg IV once daily, Ativan 1 to 2 mg IM q.4 hours as needed, and Flagyl 500 mg IV q.6 hours. I will change it to q.8. Protonix once daily. Vitamin K 10 mg IV once daily for 3 days. IV fluids. He is currently n.p.o. PHYSICAL EXAMINATION: Vital signs: Temperature of 97.2 degrees, pulse rate of 85, respiratory 21, blood pressure 116/72, saturating 100% on room air. Body weight of 165 pounds 2 ounces. BMI 25.9 kg/m2. General: lying in bed, and currently confused. He is in restraints. HEENT: Positive pallor. Mild icterus. Neck: Supple. Abdomen: Protuberant. Positive ascites. No rebound. No guarding. Extremities: No cyanosis or clubbing. He is in restraints. Neurological: He is confused. LABORATORY DATA: Hemoglobin and hematocrit are 10.6 and 28.2, white count of 11.61, platelet count of 89. INR of 1.53. PT of 18.7. PTT of 33.1. Sodium 132, potassium 4.6, chloride 99, bicarb of 16, anion gap of 20, BUN of 55, creatinine of 2.4. Glucose of 101. Calcium is 8.1. Total bilirubin is 1.56. AST 78, ALT 55, alkaline phosphatase 135. Total protein is 6.3, albumin of 2.5. Lipase of 79. Urinalysis is clear. Toxicology screen positive for opioids and cannabinoids. Chest x-ray done today showed somewhat shallow inspiration, subsegmental atelectasis of the right base. Mild interstitial marking prominence of the left. Small right pleural effusion. IMPRESSION AND PLAN: 1. Hepatic encephalopathy. We will start lactulose 30 mL b.i.d once mental status improves. We can start with lactulose enemas 60 mL per rectal b.i.d. for now. We can transition oral lactulose once his mental status improves. We can also resume his Xifaxan 550 mg p.o. b.i.d. 2. Continue on IV fluids and IV PPIs. Continue to follow liver enzymes. 3. Chronic hepatitis B and hepatitis C, aware. 4. Coagulopathy aware. We will give him vitamin K 10 mg IV once daily for 3 days. 5. Anemia. Continue to watch for now. Transfuse as needed. Goal hemoglobin between 7 to 8 g/dL. 6. Thrombocytopenia and liver cirrhosis. Aware. 7. Decompensated liver cirrhosis. Continue to follow liver enzymes and CBC and INR. Ascites. We will continue to follow. 8. History of esophageal varices. Aware. 9. We will follow along. 10. The above plans discussed with the patient's nurse at bedside. All questions answered. Please call us with any further questions. cc: Alvarez Howard MD MTDD
[2018-10-21] MEDS: LACTULOSE PO SCH (20:14)
--- NOTE | 2018-10-22 04:21 | HISTORY AND PHYSICAL ---
PRIMARY CARE PROVIDER: None. HISTORY OF PRESENT ILLNESS: Mr. Bolden is a 48-year-old, male well known to our service with a past medical history of liver cirrhosis, ascites, hepatitis B, hepatitis C, and a recent esophageal bleed with banding back in August, recurrent hepatic encephalopathy. He does live at home. There is some question of his medical compliance with his lactulose. EMS was called after family went and checked on him secondary to being altered and inappropriate. EMS described him as having hallucinations and being combative. He was given 50 of ketamine IM and then Ativan in the ED. The patient still remained somewhat combative. We are going to have to put him in restraints. Workup in the ED revealed a white count of 11, hemoglobin and hematocrit of 10 and 28, a platelet count of 89,000. Acute kidney injury with a BUN of 55 and a creatinine of 2.4. Transaminitis. An ammonia level of 119. He was positive for opiates and cannabinoids. Chest x- ray did not reveal any pneumonia but a small right pleural effusion. EKG was normal sinus with a left bundle branch block, with a QTc of 548. He was borderline hypotensive, 90s/61. We will admit him to the ICU. Initiate him on soft wrist restraints. We will do Ativan 1 to 2 mg IV or IM. They were having trouble getting an IV initiated, as well as do lactulose with dose [place] now, and consult GI. At some point, he may need a head CT. There was some question of subarachnoid hemorrhage on his last admission. However, the patient is too combative to comply with head CT at this point. PAST MEDICAL HISTORY: 1. Hepatic encephalopathy believed to be secondary to noncompliance with medications. 2. Liver cirrhosis secondary to chronic hepatitis B and C. 3. Recent esophageal varices requiring esophageal banding on 09/14/2018. 4. Active tobacco use. 5. Recent incarceration of more than 10 years. 6. Hypertension. 7. History of kidney stones. 8. History of broken sternum. PAST SURGICAL HISTORY: Esophageal banding in August of 2018. SOCIAL HISTORY: Taken from EMR. He lives alone and has family who frequently checks on him. There is possible IV drug and alcohol abuse, as well as tobacco use and abuse. FAMILY HISTORY: From EMR. Mother and father both from unknown cancers. ALLERGIES: No known drug allergies. HOME MEDICATIONS: Have not been reconciled. Last known medicines were Lasix, lactulose, Protonix, Xifaxan, and Aldactone. REVIEW OF SYSTEMS: The patient was combative. Did not follow any commands. Did not answer any questions. Was hard to obtain, given his agitation. He was being held down by 3 to 4 nurses at a time and initiating soft wrist restraints. PHYSICAL EXAMINATION: Vital Signs: Temperature is 98.2 degrees, heart rate 59, respirations 16, blood pressure is 90/61, O2 saturation is 97% on room air. General: Mr. Bolden is a 48-year-old, male who is currently being combative and held down in the ED on the stretcher by 3 to 4 nurses at a time. HEENT: Atraumatic, normocephalic. It was hard to really assess his pupils but they did appear to be round and reactive. Poor dentition. Neck: Supple. Trachea midline. CV: S1-S2 present with a positive murmur. Regular rate and rhythm. Pulmonary: Clear in all lung cummins bilaterally. Decreased in the bases. Abdomen: Firm, distended. Could not appreciate any guarding or tenderness. Bowel sounds were hypoactive. Extremities: Did not note any clubbing or cyanosis, or lower extremity edema. Neurologic: The patient is awake, combative in bed, currently being held down by nursing staff. We are applying soft wrist restraints. We are going to give Ativan. ASSESSMENT AND PLAN: 1. Hepatic encephalopathy. Ammonia level is 119. We will have to do lactulose [place] now. Patient is currently not following any commands and being combative. He has already received ketamine and Ativan. We will continue with Ativan given his prolonged QTc and consult gastroenterology. 2. Known hepatitis B and C with liver cirrhosis. 3. Acute kidney injury. We are trying to initiate intravenous lines at this time. He does have a normal saline fluid liter bolus open. Then we will do normal saline intravenously. We will recheck his kidney function in the morning. Consult nephrology if appropriate at that time. Possibly will need a head CT. There was some question of subarachnoid hemorrhage on his last admission. However, the patient is too combative at this time. 4. Left bundle branch block. Aware. 5. Episode of sinus bradycardia and nonsustained ventricular tachycardia due to prolonged QTc associated with the use of Haldol and Geodon. 6. Esophageal varices. Did not appreciate any active bleeding but he did require esophageal banding in August of 2018. We will continue with intravenous proton pump inhibitor. 7. History of medical noncompliance, incarceration, active tobacco abuse, as well as question of intravenous drug use. 8. Ascites secondary to liver cirrhosis. He has had to have a paracentesis in the past. Again, we will let gastroenterology evaluate him and follow their recommendations. 9. Further recommendations to follow physician evaluation, laboratory and diagnostic data. Dictated by SAM Jovel for Joaquín Chua MD cc: MD Dr. Lee Mireles
[2018-10-22] MEDS: NS 1,000 ML IV SCH ×4 (05:51→16:07)
[2018-10-22 06:18] LABS: ALB/GLOB RATIO 0.8; ALBUMIN 2.4 g/dL (3.5-5.0); CREATININE 2.4 mg/dL (0.7-1.2); MAGNESIUM 2.1 mg/dL (1.5-2.7); POTASSIUM 4.7 mmol/L (3.5-5.1); TOTAL BILIRUBIN 1.59 mg/dL (0.20-1.00); TOTAL PROTEIN 5.6 g/dL (6.3-8.3)
--- NOTE | 2018-10-22 06:31 | Diag Imaging Result Doc PS360 ---
EXAM: CHEST-PORTABLE HISTORY: follow up TECHNIQUE: Portable chest single view COMPARISON: 10/21/2018 FINDINGS: Improved inspiratory effort although remains suboptimal. No cardiomegaly. No pleural effusions identified. Partial clearing of the basilar infiltrates and atelectasis. IMPRESSION: Interval improvement Electronically signed by Nhan Olivo 10/22/2018 6:29 AM
--- NOTE | 2018-10-22 07:28 | EKG Report ---
Test Performed on : 10/22/2018 06:59:12 AM Test Reason : evaluate QTC Blood Pressure : / mmHG Vent. Rate : 094 BPM Atrial Rate : 094 BPM P-R Int : 160 ms QRS Dur : 144 ms QT Int : 454 ms P-R-T Axes : 055 -34 129 degrees QTc Int : 567 ms Normal sinus rhythm. Left axis deviation Left bundle branch block Abnormal ECG When compared with ECG of 21-OCT-2018 05:31, (Unconfirmed) No significant change was found Confirmed by Oumar Beverly MD ([id number]) on 10/23/2018 8:29:57 AM
[2018-10-22 08:05] LABS: BASO# 0.03 X1000 (0.0-0.2); BASO% 0.6 % (0.0-0.8); EOS# 0.05 X1000 (0.0-0.7); HEMATOCRIT 21.9 % (42.0-52.0); HEMOGLOBIN 7.8 g/dL (14.0-18.0); IMM GRAN# 0.02 X1000 (0.0-0.04); IMM GRAN% 0.4 % (0.0-0.5); LYMPH# 0.99 X1000 (1.2-3.4); LYMPH% 20.4 % (20.5-51.1); MCHC 35.6 g/dL (33-37); MCV 112.3 FL (81-99); MONO# 0.65 X1000 (0.11-0.59); MONO% 13.4 % (1.7-9.3); MPV 12.2 FL (7.4-10.4); NEUT# 3.12 X1000 (1.4-6.5); NEUT% 64.2 % (42.2-75.2); PLT 63 X1000 (130-400); RBC 1.95 XMIL (4.7-6.1); WBC 4.86 X1000 (4.8-10.8)
[2018-10-22 08:30] LABS: LYMPHS 14 % (21-51); MONO 10 % (1-9); SEGS 76 % (42-75)
[2018-10-22] MEDS: LACTULOSE PO SCH (08:50)
[2018-10-22] MEDS: VITAMIN K 10 MG in NS 50 ML IV SCH (08:51)
[2018-10-22] MEDS: FLAGYL 500 MG/NS 500 MG/100 ML IVPB IV SCH ×3 (08:51→16:07)
[2018-10-22] MEDS ORDERED: MISC. PHARMACY COMMUNICATION SCH (10:45)
[2018-10-22 11:21] LABS: BASO# 0.02 X1000 (0.0-0.2); BASO% 0.4 % (0.0-0.8); EOS# 0.05 X1000 (0.0-0.7); EOS% 0.9 % (0.0-10.0); HEMATOCRIT 22.9 % (42.0-52.0); IMM GRAN# 0.02 X1000 (0.0-0.04); IMM GRAN% 0.4 % (0.0-0.5); LYMPH# 1.04 X1000 (1.2-3.4); LYMPH% 19.3 % (20.5-51.1); MCH 38.1 PG (27-31); MCHC 34.9 g/dL (33-37); MONO# 0.51 X1000 (0.11-0.59); MONO% 9.5 % (1.7-9.3); MPV 12.2 FL (7.4-10.4); NEUT# 3.74 X1000 (1.4-6.5); NEUT% 69.5 % (42.2-75.2); PLT 64 X1000 (130-400); WBC 5.38 X1000 (4.8-10.8)
--- NOTE | 2018-10-22 11:50 | Diag Imaging Result Doc PS360 ---
EXAM: CT HEAD W/O CONTRAST 10/22/2018 HISTORY: encephalopathy TECHNIQUE: This exam was performed using automated exposure control, adjustment of mA or kV according to patient size, and/or use of iterative reconstruction technique. COMMENT: There is no evidence of mass effect, bleed, or abnormal extra-axial fluid collection. Compared to the previous examination of 10/06/2018, there has been no significant change. The visualized paranasal sinuses are clear. The calvarium is intact. IMPRESSION: No evidence of acute intracranial disease. Electronically signed by David Rincon 10/22/2018 11:48 AM
--- NOTE | 2018-10-22 12:45 | PROGRESS NOTE ---
DATE: 10/22/2018 SUBJECTIVE: The patient has no major complaints. OBJECTIVE: Vital Signs: Blood pressure is 92/80, heart rate 90, respiratory rate 11, temperature 97.6 degrees, 100% on room air. Cardiovascular: Regular rate and rhythm. Pulmonary: Bilateral breath sounds clear to auscultation. Abdomen: Soft, nontender, nondistended. Bowel sounds were positive. LABORATORY DATA: White count is 4, hemoglobin and hematocrit has dropped to 7.8 and 21, platelets of 63,000. BUN and creatinine are 69 and 2.4. AST and ALT are 69 and 48. T bilirubin is 1.59. PROBLEM LIST: 1. Hepatic encephalopathy, which is persistent. Ammonia has dropped a little bit but Dr. Howard has changed his lactulose because he cannot take anything p.o. 2. We will continue Xifaxan but he cannot take p.o. and we do not want to put an NG tube down because he has varices so we are stuck. I have put him on Flagyl thinking that would at least give him some benefit and I will just do it intravenously. 3. Acute kidney injury. At this point, I am considering that he has hepatorenal syndrome which has significant mortality, so I may get a Nephrology opinion on that. His urine electrolytes are prerenal, but that can be seen with hepatorenal syndrome. 4. Coagulopathy. Continue to monitor. 5. Hepatitis B and C cirrhosis. 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 I do not think he is a transplant candidate. I do not have 100% data looking at that, but from what I understand, he is not and therefore will have major issues there. cc: Joaquín Chua MD
[2018-10-22] MEDS: NON-FORMULARY MED PR SCH ×2 (12:47→21:45)
[2018-10-22] MEDS: SODIUM CHLORIDE 0.9% INJ SCH (14:10)
[2018-10-22] MEDS: PROTONIX IV SCH (14:10)
--- NOTE | 2018-10-22 14:48 | GASTROENTEROLOGY PROGRESS NOTE ---
DATE: 10/22/2018 SUBJECTIVE: The patient is resting in bed. He is confused, in restraints. We will switch him to lactulose enemas 300 mL per rectal b.i.d. According to the nursing reports, no evidence of any nausea, vomiting, vomiting blood, or passing blood in the stools. He is having brown stools. PHYSICAL EXAMINATION: Vital Signs: Temperature of 97.5, pulse rate of 80, respiratory rate of 10, blood pressure 119/84, saturating 100% on room air. Body weight of 166 pounds and 9.6 ounces. BMI of 26.1 kg/m2. General Appearance: Moderately built, moderately nourished, lying in bed, currently confused. HEENT: Positive pallor. Mild icterus. Neck: Supple. Abdomen: Protuberant, soft. Positive ascites. No guarding. Extremities: Restraints on the upper and lower extremities. Neurologic: He responds to his name but is not following any commands. LABS: Hemoglobin and hematocrit are 7.9 and 21.9, white count of 4.86, platelet count of 63,000. Sodium 130, potassium 4.7, chloride 100, bicarb 20, anion gap 13, BUN of 69, creatinine 2.4, glucose of 94, calcium is 8. Magnesium 2.1. Total bilirubin is 1.59, AST 69, ALT 40, alkaline phosphatase of 116, total protein is 5.6, albumin of 2.4, ammonia of 96. INR 1.53, PT of 18.7, PTT of 30.1. Toxicology screen positive for opioids and cannabinoids. Urinalysis showing negative white cells. Chest x-ray showing interval improvement. No cardiomegaly, no pleural effusion. Partial clearing of the basilar infiltrate, atelectasis. IMPRESSION AND PLAN: 1. Hepatic encephalopathy. We will switch to a lactulose enema 30 mL twice a day. We will start oral lactulose once his mental status improves. 2. Elevated liver enzymes secondary to chronic hepatitis B and C. Aware. Continue to trend liver enzymes, and CBC and INR. 3. Coagulopathy. We will continue on vitamin K 10 mg intravenously once daily for three days. 4. Anemia. Continue to watch for now. He dropped his hematocrit down but no evidence of any overt gastrointestinal bleeding. If hematocrit continues to drop, we may have to repeat the esophagogastroduodenoscopy. At the moment, we will continue to track his hemoglobin and transfuse as needed to keep the hemoglobin goal of 7 to 8 g/dL. 5. Thrombocytopenia. Continue to watch for now. 6. Liver cirrhosis. Aware. Continue to follow liver enzymes. 7. Ascites. Continue to follow. 8. History of esophageal varices. Aware. 9. He will continue on Levaquin and Flagyl empiric antibiotics because of previous history of spontaneous bacterial peritonitis. 10. We will repeat his labs for tomorrow morning. 11. The above plans were discussed with the patient's nurse at bedside. All questions were answered. Please call us with any questions. cc: MD Joaquín Castillo MD
[2018-10-22] MEDS: ATIVAN IM PRN ×2 (15:07→19:40)
[2018-10-22] MEDS: HALDOL IM PRN ×2 (15:11→19:39)
[2018-10-22] MEDS: LEVAQUIN 500 MG/D5W 500 MG/100 ML IVPB IV SCH (16:06)
--- NOTE | 2018-10-22 17:55 | Diag Imaging Result Doc PS360 ---
EXAM: US ABDOMEN-COMPLETE 10/22/2018 HISTORY: abdominal pain TECHNIQUE: Abdominal ultrasound COMMENT: There is ascites which was also present on 10/18/2018. The pancreas and aorta are not well demonstrated. The liver is markedly hyperechoic and nodular in contour consistent with cirrhosis. The gallbladder is clear and nontender. There is a right pleural effusion. The right kidney is slightly atrophic measuring 9 cm in length. There is slightly hyperechoic and there is no evidence of hydronephrosis or mass. The spleen is enlarged measuring over 15 cm. The left kidney is without evidence of hydronephrosis or mass and is not optimally visualized. The patient was unable to cooperate with the procedure. The common bile duct and portal vein are not demonstrated. IMPRESSION: Limited study. Cirrhosis and splenomegaly with ascites and right pleural effusion. No evidence of obstructive uropathy. The possibility of medical renal disease cannot be excluded. Electronically signed by David Rincon 10/22/2018 5:53 PM
[2018-10-22] MEDS: ALBUMIN 25% IV SCH (18:05)
--- NOTE | 2018-10-22 19:31 | NEPHROLOGY CONSULTATION ---
DATE: 10/22/2018 REASON FOR CONSULTATION: Acute kidney injury. HISTORY OF PRESENT ILLNESS: Mr. Bolden is a 48-year-old white male who has had multiple admissions to the hospital because of cirrhosis and complications related to this problem. He just had a large volume paracentesis 4 days ago and was just in the hospital earlier this month, discharged on 10/14/2018. He was unresponsive at home and therefore EMS was called and he was transported to the hospital. His initial evaluation in the emergency room found him hypotensive and he had evidence of acute kidney injury. Baseline renal function was normal with a creatinine of 1.4 on 10/18, 2.4 on presentation. His creatinine is stable over the first 24 hours, but his urine output is falling and he has had very little urine output in the last day. We were asked to assist with his management. PAST MEDICAL HISTORY: 1. Cirrhosis with hepatitis B and C. Complicated by esophageal varices and recurrent ascites. 2. Recurrent episodes of hepatic encephalopathy. 3. He also has a history of hypertension and kidney stones. HOME MEDICATIONS: Are listed as pantoprazole, lactulose, rifaximin, furosemide, fentanyl, hydrocodone, spironolactone. Unclear if he takes any of these. He is not able to answer. ALLERGIES: None. SOCIAL HISTORY: Otherwise not obtainable. FAMILY HISTORY: Otherwise not obtainable. REVIEW OF SYSTEMS: Otherwise not obtainable. PHYSICAL EXAMINATION: Vital Signs: Blood pressure 96/70, heart rate 79, respiration 11, afebrile. Generally: He is a middle-aged, chronically ill-appearing man, unresponsive. Skin: Warm and dry. Multiple tattoos and ecchymoses. Eyes: Conjunctivae are pink with mild icterus. Mouth: Oropharynx is dry. Neck: Neck veins are not appreciated. Heart: PMI nondisplaced. Regular rate and rhythm. No murmurs, rubs, or gallops. Lungs: Have equal excursion, equal breath sounds, shallow. No crackles. Abdomen: Distended, nontender, soft. Bowel sounds present. Extremities: No edema, clubbing or cyanosis. IMPRESSION: Acute kidney injury with low urine output. Fractional excretion of sodium less than 1%. Concerning for hepatorenal syndrome following recent large volume paracentesis. We will give IV fluids and IV albumin overnight and reassess his renal function in the morning. Based on his response, he may require midodrine and octreotide for Levophed. We will check renal ultrasound in the morning. Repeat urine electrolytes. cc: Emmanuel Noble MD
[2018-10-22 21:18] LABS: BASO# 0.02 X1000 (0.0-0.2); BASO% 0.5 % (0.0-0.8); EOS# 0.02 X1000 (0.0-0.7); EOS% 0.5 % (0.0-10.0); HEMATOCRIT 23.6 % (42.0-52.0); HEMOGLOBIN 7.6 g/dL (14.0-18.0); IMM GRAN# 0.02 X1000 (0.0-0.04); IMM GRAN% 0.5 % (0.0-0.5); LYMPH# 0.64 X1000 (1.2-3.4); LYMPH% 15.9 % (20.5-51.1); MCH 37.3 PG (27-31); MCHC 32.2 g/dL (33-37); MCV 115.7 FL (81-99); MONO# 0.49 X1000 (0.11-0.59); MONO% 12.2 % (1.7-9.3); MPV 11.8 FL (7.4-10.4); NEUT# 2.83 X1000 (1.4-6.5); NEUT% 70.4 % (42.2-75.2); PLT 44 X1000 (130-400); RBC 2.04 XMIL (4.7-6.1); RDW 18.4 % (11.5-14.5); WBC 4.02 X1000 (4.8-10.8)
[2018-10-22] MEDS ORDERED: ATIVAN IV ONE (22:18)
[2018-10-23] MEDS: HALDOL IM PRN (00:32)
[2018-10-23] MEDS: ATIVAN IM PRN ×2 (00:32→10:30)
[2018-10-23 01:40] LABS: BASO# 0.01 X1000 (0.0-0.2); BASO% 0.3 % (0.0-0.8); EOS# 0.02 X1000 (0.0-0.7); EOS% 0.5 % (0.0-10.0); HEMATOCRIT 16.6 % (42.0-52.0); LYMPH# 0.63 X1000 (1.2-3.4); MCHC 48.2 g/dL (33-37); MCV 116.1 FL (81-99); MONO# 0.43 X1000 (0.11-0.59); MONO% 11.6 % (1.7-9.3); NEUT# 2.61 X1000 (1.4-6.5); NEUT% 70.6 % (42.2-75.2); PLT 49 X1000 (130-400); RBC 1.43 XMIL (4.7-6.1)
[2018-10-23] MEDS: FLAGYL 500 MG/NS 500 MG/100 ML IVPB IV SCH ×3 (01:49→22:10)
[2018-10-23] MEDS: NS 1,000 ML IV SCH ×3 (01:50→16:27)
[2018-10-23] MEDS ORDERED: NS 250 ML ONE (08:31)
[2018-10-23 08:45] LABS: INR 1.8; PROTIME 21.3 Seconds (11.0-16.0)
[2018-10-23 08:46] LABS: PTT 37.9 Seconds (22.3-41.8)
[2018-10-23 09:15] LABS: CALCIUM 8.2 mg/dL (8.8-10.2); CREATININE 2.5 mg/dL (0.7-1.2); TOTAL BILIRUBIN 1.76 mg/dL (0.20-1.00)
[2018-10-23 09:16] LABS: ALBUMIN 2.9 g/dL (3.5-5.0); TOTAL PROTEIN 5.9 g/dL (6.3-8.3)
--- NOTE | 2018-10-23 12:10 | Diag Imaging Result Doc PS360 ---
EXAM: CHEST-PORTABLE 10/23/2018 HISTORY: central line placement TECHNIQUE: AP portable at 1200 COMMENT: There is a left internal jugular central venous catheter with its tip possibly in the left internal mammary vein or more likely the superior intercostal vein (aortic nipple.) There is no evidence of pneumothorax or pleural fluid collection. There is still hazy opacity over the right lung which may be due to pulmonary edema. IMPRESSION: Left internal jugular catheter with its tip in the superior intercostal vein. Electronically signed by David Rincon 10/23/2018 12:08 PM
[2018-10-23] MEDS ORDERED: ATIVAN IV ONE ×2 (12:17→12:32)
[2018-10-23] MEDS ORDERED: HALDOL IV ONE (12:17)
--- NOTE | 2018-10-23 12:22 | OPERATIVE NOTE ---
PROCEDURE DATE: 10/23/2018 PREOPERATIVE DIAGNOSIS: Substance abuse, and need for IV access. POSTOPERATIVE DIAGNOSIS: Substance abuse, and need for IV access. PRINCIPAL PROCEDURE: Left internal jugular central venous line using ultrasound. SURGEON: Ailin Mosqueda MD. ANESTHESIA: Local. ESTIMATED BLOOD LOSS: 25 mL. DRAINS: None. INDICATIONS FOR PROCEDURE: Mr. Zachary Bolden is a 48-year-old male in our ICU hospitalized secondary to substance abuse. He also has a history of hepatitis. He has poor peripheral vein access for multiple hospitalizations. PICC line has been tried, but has been unsuccessful. We were asked to place a central venous line. DESCRIPTION OF PROCEDURE: We placed him supine in his bed in ICU 14. We began on the right side in the right subclavian, but was unable to access the vein right subclavian. I used an ultrasound and there was no right internal jugular vein so we went to the left side. Using ultrasound guidance, I accessed the left internal jugular vein with an 18-gauge needle. A guidewire was placed into this needle, and advance to the right side of the heart. The needle was removed. I placed a christa on the skin at the exit site left neck of the guidewire. A dilator was placed over the guidewire, and then an antibiotic coated triple-lumen central venous line was placed over the guidewire into the superior vena cava. All 3 ports were functioning. They were flushed with saline. I secured the catheter to the skin of the neck with 3-0 silk stitches. A dry dressing was applied. He tolerated the procedure well. He was confused, and had to be held down. We will get a chest x-ray to be sure of the position of this catheter. cc: Ailin Mosqueda MD
[2018-10-23] MEDS: VITAMIN K 10 MG in NS 50 ML IV SCH (12:30)
[2018-10-23] MEDS ORDERED: VITAMIN K SUBQ ONE (12:32)
[2018-10-23] MEDS ORDERED: NS 500 ML IV ONE ×2 (12:32→17:48)
--- NOTE | 2018-10-23 12:40 | PROGRESS NOTE ---
DATE: 10/23/2018 SUBJECTIVE: The patient has no major complaints. OBJECTIVE: Vital Signs: Blood pressure is 116/98, heart rate of 95, respiratory rate of 12, temperature was 97.5 degrees, saturating 100% on room air. Cardiovascular: Regular rate and rhythm. Pulmonary: Bilateral breath sounds. Clear to auscultation. GI: Soft, nontender, nondistended. Bowel sounds are positive. LABORATORY DATA: White count was 3, hemoglobin and hematocrit 8 and 16, platelets of 49,000. INR is 1.8. Creatinine 2.5. Total bilirubin is 1.76. AST and ALT are 72 and 46. PROBLEM LIST: 1. Hepatic encephalopathy. Will continue lactulose. His ammonia has come down, but he is still pretty confused. We will continue to monitor. Once he is taking by mouth, will switch medications to all by mouth. 2. Acute kidney injury. That is still not resolved. I am concerned about hepatorenal, and he will continue fluids and albumin, so will continue to follow. He has had an ultrasound. Dr. Noble ordered one for tomorrow, so maybe just see if change in status, but I am worried about his long-term goal there. In any case, will continue to follow closely. cc: Joaquín Chua MD
[2018-10-23] MEDS ORDERED: GEODON IM ONE (13:13)
[2018-10-23] MEDS ORDERED: STERILE WATER INJ. INJ ONE (13:13)
[2018-10-23] MEDS: PHENOBARBITAL IV PRN ×2 (13:59→21:19)
[2018-10-23] MEDS: PROTONIX IV SCH (13:59)
[2018-10-23] MEDS: ALBUMIN 25% IV SCH (14:00)
[2018-10-23] MEDS: SODIUM CHLORIDE 0.9% INJ SCH (14:00)
[2018-10-23] MEDS: NON-FORMULARY MED PR SCH ×2 (14:23→21:00)
[2018-10-23 16:30] LABS: HEMATOCRIT 20.7 % (42.0-52.0); HEMOGLOBIN 6.9 g/dL (14.0-18.0)
[2018-10-23] MEDS: ATIVAN IV PRN ×3 (17:00→23:58)
[2018-10-23] MEDS ORDERED: LASIX IV SCH (18:00)
--- NOTE | 2018-10-23 18:27 | NEPHROLOGY PROGRESS NOTE ---
DATE: 10/23/2018 SUBJECTIVE: Patient resting in bed. He will awaken to verbal and tactile stimuli. OBJECTIVE: Vital signs: Temperature afebrile, pulse 90, respiratory rate 18, blood pressure 125/74. Intake 5.2 L, output 1.1 L. General: This is a chronically ill- appearing, middle-aged gentleman resting in bed. He will open his eyes to verbal and tactile stimuli. He does not follow commands. HEENT: Normocephalic, atraumatic. His conjunctivae are pale. Pupils are reactive. Oral mucosa dry. Neck is supple. No JVD. Cardiovascular: Regular rate and rhythm. Pulmonary: Equal excursion. Decreased breath sounds bilaterally. Abdomen is soft, distended with positive bowel sounds. : Perez catheter with dark urine. Extremities: No clubbing, cyanosis or edema. Extremities are somewhat wasted. Integumentary: Skin is pale, warm and dry. He does have ecchymoses noted. LABORATORY DATA: WBC of 3.7, hemoglobin 8. Sodium 139, potassium 4.0, CO2 is 19, creatinine 2.5, albumin 2.9. ASSESSMENT AND PLAN: Acute kidney injury with low urine output. The patient had large-volume paracentesis and it appears that his intravenous fluid resuscitation has resulted in more ascites. We have given him albumin. He has this ordered 50 g for 3 days. We will continue monitoring. His blood pressure has been acceptable, but we will still consider midodrine and octreotide therapy. His renal function has not worsened to any degree. Over the last 24 hours he has been quite stable. Check labs in the morning and further plan from that point. Dictated by SAM Arango for Emmanuel Noble MD Face to face encounter, data reviewed, discussed with Randall Dooley on 10/23/18. I agree with the above assessment and plan of care. cc: Emmanuel Noble MD [facility]
[2018-10-23] MEDS: LOPRESSOR IV SCH ×2 (18:52→23:58)
[2018-10-23 19:52] LABS: MAGNESIUM 2.3 mg/dL (1.5-2.7); POTASSIUM 3.9 mmol/L (3.5-5.1)
[2018-10-23 21:30] LABS: URINE SOURCE CATH
[2018-10-23 21:42] LABS: BILIRUBIN URINE NEGATIVE (NEGATIVE); BLOOD URINE TRACE-LYSED (NEGATIVE); CLARITY CLEAR (CLEAR); COLOR YELLOW; GLUCOSE URINE NEGATIVE (NEGATIVE); KETONE URINE NEGATIVE (NEGATIVE); LEUKOCYTES URINE TRACE (NEGATIVE); NITRITE URINE NEGATIVE (NEGATIVE); PH URINE 6.5; PROTEIN URINE NEGATIVE (NEGATIVE); UROBILINOGEN URINE 0.2 EU/dL (0.2-1.0)
[2018-10-23 21:45] LABS: UR CREAT RANDOM 55.4 mg/dL (14-26)
[2018-10-23 21:51] LABS: URINE RBC <10 /HPF (<10); URINE WBC <10 /HPF (<10)
[2018-10-23 21:52] LABS: URINE BACTERIA NEGATIVE /HFP; URINE EPITHELIAL CELLS <10 /HPF (<10)
--- NOTE | 2018-10-23 22:39 | PROVIDER PROGRESS NOTE ---
Progress Note S: No acute overnight events. He remains encephalopathic with episodes of agitation. No N/V, rectal bleeding, melena. O: Last Vital Signs Temp 97.1 F L 10/23/18 21:59 Pulse 130 H 10/23/18 22:03 Resp 25 H 10/23/18 22:03 BP 123/92 10/23/18 22:03 Pulse Ox 100 10/23/18 22:03 Height 5 ft 7 in Weight 171 lb 11.2 oz GEN: NAD, awake, alert, oriented HEENT: anicteric, EOMI NECK: supple, no JVD PULM: CTAB, no wheezing CV: RRR no murmurs ABD: soft NT, BS present; minimal distension, paracentesis site c/d/i EXT: no cce NEURO: encephalopathy resolved, no asterixis LABS: 10/23/18 10/23/18 10/23/18 01:25 08:30 08:30 WBC 3.70 L Hgb 8.0 L Plt Count 49 L INR 1.80 Sodium 139 Potassium 4.0 Chloride 107 Carbon Dioxide 19 L Anion Gap 13 BUN 68 H Creatinine 2.5 H Total Bilirubin 1.76 H AST 72 H ALT 46 H Alkaline Phosphatase 103 Ammonia 29 Creatine Kinase 235H Total Protein 5.9 L Albumin 2.9 L A/P: Mr. Zachary Bolden is a 48 year old man with HCV and HBV cirrhosis c/b ascites and non-bleeding esophageal varices s/p EVL who was readmitted with hepatic encephalopathy likely secondary to med non-compliance. He was found to have ALLAN likely in the setting of volume depletion. He does not appear to have HRS. He is receiving albumin. BP is normal. Renal following. # HBV/HCV cirrhosis - PSE: on lactulose enemas; titrate for 2-3 BMs daily, hold next dose for >=4 BMs in 24 hours; avoid BENZOS and narcotics - Cirrhosis: stable LFTs: trend LFTs, INR daily - Ascites: avoid diuretics; low Na diet - EV: s/p EVL on 09/11; no history of variceal bleed; patient is due for repeat EGD - HCC: prior CT negative for hepatoma, AFP WNL, repeat US every 6 months - OLT: non-compliant, palliative care following # ALLAN: likely setting of volume depletion; avoid nephrotoxins, on albumin to 100mg daily # Anemia: no overt bleeding; transfuse to maintain hgb 7-8 # Coagulopathy: INR improved # Thrombocytopenia: stable # PUD: continue PPI BID # Severe protein calorie malnutrition: low na diet when more alert Will follow with you. Please call with questions.
[2018-10-24] MEDS: NS 1,000 ML IV SCH ×2 (01:51→08:39)
[2018-10-24] MEDS: PHENOBARBITAL IV PRN (01:51)
[2018-10-24 04:38] LABS: BASO# 0.01 X1000 (0.0-0.2); BASO% 0.3 % (0.0-0.8); EOS# 0.04 X1000 (0.0-0.7); EOS% 1.1 % (0.0-10.0); HEMATOCRIT 24.8 % (42.0-52.0); HEMOGLOBIN 8.4 g/dL (14.0-18.0); LYMPH# 0.53 X1000 (1.2-3.4); LYMPH% 14.2 % (20.5-51.1); MCH 35.9 PG (27-31); MCHC 33.9 g/dL (33-37); MONO# 0.39 X1000 (0.11-0.59); MONO% 10.5 % (1.7-9.3); MPV 11.4 FL (7.4-10.4); NEUT# 2.76 X1000 (1.4-6.5); NEUT% 73.9 % (42.2-75.2); PLT 58 X1000 (130-400); RBC 2.34 XMIL (4.7-6.1); RDW 19.9 % (11.5-14.5); WBC 3.73 X1000 (4.8-10.8)
[2018-10-24 04:54] LABS: ALBUMIN 3.3 g/dL (3.5-5.0); CALCIUM 8.5 mg/dL (8.8-10.2); CREATININE 2.1 mg/dL (0.7-1.2); PHOSPHORUS 4.5 mg/dL (2.7-4.5); POTASSIUM 3.7 mmol/L (3.5-5.1)
[2018-10-24] MEDS: ATIVAN IV PRN ×4 (06:20→21:54)
[2018-10-24] MEDS: FLAGYL 500 MG/NS 500 MG/100 ML IVPB IV SCH ×3 (06:20→21:22)
[2018-10-24] MEDS: LOPRESSOR IV SCH ×3 (06:20→17:29)
[2018-10-24] MEDS: ALBUMIN 25% IV SCH ×4 (08:40→21:23)
[2018-10-24] MEDS: VITAMIN K 10 MG in NS 50 ML IV SCH (08:40)
--- NOTE | 2018-10-24 09:33 | PROVIDER PROGRESS NOTE ---
Progress Note S: No acute overnight events. Restrained. Afebrile. Remains encephalopathic. O: Last Vital Signs Temp 98.3 F 10/24/18 08:00 Pulse 85 10/24/18 09:02 Resp 13 10/24/18 09:02 BP 112/72 10/24/18 09:02 Pulse Ox 100 10/24/18 09:02 Height 5 ft 7 in Weight 171 lb 11.2 oz GEN: NAD, awake, alert, oriented HEENT: anicteric NECK: supple, no JVD PULM: CTAB, no wheezing CV: RRR no murmurs ABD: soft NT, BS present; minimal distension EXT: no cce NEURO: encephalopathic LABS: 10/24/18 10/24/18 03:30 03:30 WBC 3.73 L Hgb 8.4 L D Plt Count 58 L Sodium 142 Potassium 3.7 Chloride 110 H Carbon Dioxide 18 L BUN 61 H Creatinine 2.1 H A/P: Mr. Zachary Bolden is a 48 year old man with HCV and HBV cirrhosis c/b ascites and non-bleeding esophageal varices s/p EVL who was readmitted with hepatic encephalopathy likely secondary to med non-compliance. He was found to have ALLAN likely in the setting of volume depletion. He does not appear to have HRS. Creatinine slightly improved. He is receiving albumin. BP is normal. Renal following. # HBV/HCV cirrhosis - PSE: on lactulose enemas; titrate for 2-3 BMs daily, hold next dose for >=4 BMs in 24 hours; avoid BENZOS and narcotics - Cirrhosis: stable LFTs: trend LFTs, INR daily - Ascites: avoid diuretics; low Na diet - EV: s/p EVL on 09/11; no history of variceal bleed; patient is due for repeat EGD - HCC: prior CT negative for hepatoma, AFP WNL, repeat US every 6 months - OLT: non-compliant, palliative care following # ALLAN: likely setting of volume depletion; holding diuretics, avoid nephrotoxins, increased albumin to 100g daily # Anemia: no overt bleeding; transfused 2 units pRBCs yesterday as well as platelets; transfuse pRBCs to maintain hgb 7-8 # Coagulopathy: INR improved # Thrombocytopenia: stable # PUD: continue PPI BID # Severe protein calorie malnutrition: low na diet when more alert Will follow with you. Please call with questions.
[2018-10-24] MEDS: NON-FORMULARY MED PR SCH ×2 (10:08→21:21)
[2018-10-24] MEDS: PROTONIX IV SCH (13:12)
[2018-10-24] MEDS: SODIUM CHLORIDE 0.9% INJ SCH (13:12)
--- NOTE | 2018-10-24 15:41 | ECHO REPORT ---
ORDER DATE: 10/24/2018 INDICATION: CVA. FINDINGS: 1. The right atrium appears mildly enlarged at 4 cm. 2. Moderate tricuspid regurgitation. RV systolic pressure of 31. 3. Normal RV size and systolic function. 4. No significant pulmonic insufficiency. 5. Left atrium appears to be normal in size with a volume index of 23. 6. No mitral valve prolapse. Mild mitral regurgitation. No evidence of mitral stenosis. 7. Normal LV size, end-diastolic dimension of 3.6. Mild to moderate left ventricular hypertrophy with a posterior and interventricular septal wall thickness of 1.1 and 1.4 cm respectively. The LV systolic function appears to be preserved with an estimated ejection fraction of 55%. Wall motion is extremely difficult to assess. On some views, there appears to be hypokinesis of the anterior septum. However, there is noted to be an interventricular conduction delay, and on some views this area appears to continue to be thickening. I would recommend repetition of this study on a limited basis with injection of Optison contrast to help delineate endocardial border motion better. 8. Aortic valve opens well. There is no evidence of stenosis or significant insufficiency. 9. The aorta appears enlarged with a dimension of 4.3 cm. 10. There is suggestion of a pleural effusion versus possible ascites. cc: MD Joaquín Levine MD
--- NOTE | 2018-10-24 15:50 | Diag Imaging Result Doc PS360 ---
EXAM: US RENAL 2 (RETROPER) COMPLETE INDICATION: carlota/arf TECHNIQUE: COMPARISON: 10/22/2018 FINDINGS: There is large volume ascites similar to the previous study. The kidneys are grossly normal in echotexture with no discrete renal mass or hydronephrosis. The right kidney measures 9.9 cm and the left kidney measures 10.3 cm in the greatest longitudinal axes. The right renal cortex measures 1 cm in the left renal cortex measures 1.1 cm in thickness. The urinary bladder is nondistended. IMPRESSION: 1.Large volume ascites similar to the prior abdominal ultrasound. 2.The kidneys are grossly unremarkable. Electronically signed by Puneet Arias 10/24/2018 3:48 PM
[2018-10-24] MEDS ORDERED: LEVAQUIN 500 MG/D5W 500 MG/100 ML IVPB IV SCH (16:00)
--- NOTE | 2018-10-24 17:22 | NEPHROLOGY PROGRESS NOTE ---
DATE: 10/24/2018 SUBJECTIVE: Patient remains resting in bed. He will rouse to verbal and tactile stimuli but really does not respond otherwise. OBJECTIVE: Vital Signs: Temperature 97.2 degrees, pulse 92, respiratory rate 18, blood pressure 123/81. Intake 4.2 L. Output 3.2 L. General: This is a middle-aged gentleman resting in bed. Visually not responsive. Obtunded. HEENT: Normocephalic, atraumatic. Conjunctivae pale. Oral mucosa dry. Neck: Supple. No JVD. Cardiovascular: Regular rate and rhythm. Pulmonary: Equal excursion. Abdomen: Soft, distended. Positive bowel sounds. Slightly tight. : Dark urine. Extremities: No clubbing, cyanosis, or edema. Integumentary: Skin is warm and dry, pale. LAB DATA: WBC of 3.7, hemoglobin 8.4. Sodium 143, potassium 3.7, CO2 18, creatinine 2.1. ASSESSMENT AND PLAN: Acute kidney injury with low urine output. We gave the patient albumin yesterday. Has significant increase in his urine output to greater than 3 L total output. We will continue his albumin over today and the following day. We will hold off adding midodrine and octreotide at this time. His renal function has remained stable, is slightly improved. Dictated by SAM Arango for Emmanuel Noble MD Face to face encounter, data reviewed, discussed with Randall Dooley on 10/24/18. I agree with the above assessment and plan of care. cc: Emmanuel Noble MD [facility]
[2018-10-25] MEDS: LOPRESSOR IV SCH ×5 (01:26→23:38)
[2018-10-25] MEDS: ATIVAN IV PRN ×5 (01:49→21:26)
[2018-10-25] MEDS: FLAGYL 500 MG/NS 500 MG/100 ML IVPB IV SCH ×3 (05:24→21:17)
[2018-10-25 06:21] LABS: ALBUMIN 3.7 g/dL (3.5-5.0); CALCIUM 8.9 mg/dL (8.8-10.2); CREATININE 1.5 mg/dL (0.7-1.2); PHOSPHORUS 4.1 mg/dL (2.7-4.5); POTASSIUM 4.1 mmol/L (3.5-5.1)
[2018-10-25 06:44] LABS: BASO# 0.01 X1000 (0.0-0.2); BASO% 0.2 % (0.0-0.8); EOS# 0.05 X1000 (0.0-0.7); HEMATOCRIT 25.3 % (42.0-52.0); HEMOGLOBIN 8.5 g/dL (14.0-18.0); MCH 35.4 PG (27-31); MCHC 33.6 g/dL (33-37); MCV 105.4 FL (81-99); MONO# 0.52 X1000 (0.11-0.59); MONO% 10.4 % (1.7-9.3); MPV 11.3 FL (7.4-10.4); NEUT# 3.82 X1000 (1.4-6.5); NEUT% 76.4 % (42.2-75.2); PLT 75 X1000 (130-400)
[2018-10-25] MEDS: ALBUMIN 25% IV SCH ×4 (08:55→20:01)
[2018-10-25] MEDS: VITAMIN K 10 MG in NS 50 ML IV SCH (08:55)
[2018-10-25] MEDS: NON-FORMULARY MED PR SCH ×2 (09:13→21:17)
[2018-10-25] MEDS: LEVAQUIN 250 MG/D5W 250 MG/50 ML IVPB IV SCH (12:06)
--- NOTE | 2018-10-25 13:06 | ECHO REPORT ---
ORDER DATE: 10/25/2018 This is a repeat limited echocardiogram with Optison. Please see detailed echocardiogram report from 10/24/2018. This is a limited study. FINDINGS: 1. Mitral valve leaflets are normal. There is mitral annular calcification. 2. Tricuspid valve was normal. 3. Aortic valve leaflets mildly sclerosed. 4. Normal left ventricular cavity size. Estimated ejection fraction of 55 to 60 percent. Cannot rule out mild apical hypokinesis which was noted in some views. There is no pericardial effusion or obvious intracardiac mass or thrombus seen. cc: MD Joaquín Nielson MD
[2018-10-25] MEDS: PROTONIX IV SCH (13:07)
[2018-10-25] MEDS: CLINIMIX E 4.25%-5% SOLUTION 1,000 ML IV SCH (13:19)
--- NOTE | 2018-10-25 16:08 | GASTROENTEROLOGY PROGRESS NOTE ---
DATE: 10/25/2018 SUBJECTIVE: Resting in bed. He is still confused, in restraints. He is currently getting lactulose 300 mL per rectal enemas. According to the nursing reports, no documented nausea, vomiting, vomiting blood, or passing blood in the stools. OBJECTIVE: Vital Signs: Temperature 97.5, pulse rate 86, respiratory rate of 13, blood pressure 110/81, saturating 97% on room air. Body weight of 168 pounds and 4.8 ounces. BMI of 26.4 kg/m2. General Appearance: Moderately built, moderately nourished, lying in bed, and currently confused. HEENT: Positive pallor. Mild icterus. Neck: Supple. Abdomen: Protuberant. Positive ascites noted. No rebound. Extremities: No cyanosis, clubbing. He is in restraints in upper and lower extremities. Neurologic: He is confused. LABS: Hemoglobin and hematocrit is 8.4 and 25.3, white count of 5, platelet count of 75. Potassium 4.1, chloride 115, bicarb of 15, anion gap of 16, BUN of 58, creatinine of 15, glucose of 83, calcium is 8.9. Phosphorus 4.1. Albumin of 3.7. IMPRESSION AND PLAN: 1. Hepatitis B and hepatitis C, cirrhosis. Continuing to follow liver enzymes and INR daily. 2. Hepatic encephalopathy. Continue lactulose He is confused, in restraints. We will switch him to lactulose enemas 300 mL per rectal b.i.d. According to the nursing reports, no evidence of any nausea, vomiting, vomiting blood, or passing blood in the stools. He is having brown stools. PHYSICAL EXAMINATION: Vital Signs: Temperature of 97.5, pulse rate of 80, respiratory rate of 10, blood pressure 119/84, saturating 100% on room air. Body weight of 166 pounds and 9.6 ounces. BMI of 26.1 kg/m2. General Appearance: Moderately built, moderately nourished, lying in bed, currently confused. HEENT: Positive pallor. Mild icterus. Neck: Supple. Abdomen: Protuberant, soft. Positive ascites. No guarding. Extremities: Restraints on the upper and lower extremities. Neurologic: He responds to his name but is not following any commands. LABS: Hemoglobin and hematocrit are 7.9 and 21.9, white count of 4.86, platelet count of 63,000. Sodium 130, potassium 4.7, chloride 100, bicarb 20, anion gap 13, BUN of 69, creatinine 2.4, glucose of 94, calcium is 8. Magnesium 2.1. Total bilirubin is 1.59, AST 69, ALT 40, alkaline phosphatase of 116, total protein is 5.6, albumin of 2.4, ammonia of 96. INR 1.53, PT of 18.7, PTT of 30.1. Toxicology screen positive for opioids and cannabinoids. Urinalysis showing negative white cells. Chest x-ray showing interval improvement. No cardiomegaly, no pleural effusion. Partial clearing of the basilar infiltrate, atelectasis. IMPRESSION AND PLAN: 1. Hepatitis B and hepatitis C, cirrhosis. Continue to follow liver enzymes and INR daily. 2. Hepatic encephalopathy. Continue lactulose enema 300 mL per rectal b.i.d., titrate for 2 to 3 bowel movements in 24 hours and avoid narcotics and benzodiazepines. This can be transitioned to oral lactulose once he is more alert. 3. Ascites. Low sodium diet. 4. History of esophageal varices. He has esophageal banding done on 09/11/2018, he is due for a new. Will repeat EGD with Dr. Quintero. 5. Negative for hepatoma on imaging. He will need ultrasound in 6 months. 6. Acute kidney injury. Continue to hold diuretics, watch liver enzymes, and kidney profile. His albumin was increased yesterday by Dr. Quintero 100 g daily. 7. Anemia. Continue to monitor and transfuse as needed to keep the hemoglobin above 7-8 g/dL. 8. Coagulopathy. His INR has improved. He received vitamin K for 3 days. 9. Thrombocytopenia, stable. Will need to watch for now. He received 1 platelet transfusion. 10.Peptic ulcer disease on proton pump inhibitor b.i.d. 11.Protein calorie malnutrition. He may benefit from starting Clinimix if okay with primary care team. 12.I discussed the above plan of care with the patient's nurse at bedside, all questions answered. Please call us with any further questions. Thank you for allowing us to participate in the care of this patient. cc: MD MARISOL Castillo
--- NOTE | 2018-10-25 17:38 | PROGRESS NOTE ---
DATE: 10/25/2018 SUBJECTIVE: The patient has no major complaints. Although he is much more awake today, he is not mentating well. I think we could try to let him have some sips and see how he does. OBJECTIVE: Vital signs: Blood pressure is 140/85, heart rate of 89, respiratory rate 16, temperature 97.5 degrees, 99% on room air. Cardiovascular: Regular rate and rhythm. Pulmonary: Bilateral breath sounds. Clear to auscultation. GI: Soft, nontender, nondistended. Bowel sounds are positive. LABORATORY DATA: White count 5, hemoglobin and hematocrit 8 and 25, platelets 75,000. Creatinine is down to 1.5. PROBLEM LIST: 1. Hepatic encephalopathy. He is still not much improved, but his ammonia level has come down, although that is not always consistent with other issues. 2. Acute kidney injury. That is slowly improving with fluids. He seems to be doing a little bit better. 3. Ascites. I think he will probably need large volume or at least paracentesis prior to discharge, but we will wait closer to discharge, especially since he had issues with volume this admission. 4. Left bundle branch block. Appears to be stable. No evidence of cardiac issues based on his echocardiogram and he is not really amenable to treatment at this point. 5. Esophageal varices. We will need to resume his nadolol once stabilized. 6. Disposition. I had a long discussion with the patient's family yesterday, as well as I spoke to Dr. Davis per the family's request, transplant service for evaluation. Dr. Davis described the recent drug use not necessarily this admission, although he did have THC in his system this admission, but he had methamphetamines last month in August and a history of that previously. There is also concern over compliance with his medications. His family reports or his ex-, I guess, has been taking care of him that he does take his medications, although sometimes he throws them up. But then he has told nursing staff additionally that he does not like to take his medications because they gave him diarrhea or he just does not want to take them. Noncompliance also is a major risk in a transplant patient who will need to be compliant with immunosuppressant therapy, which I do not know if he really would be. It is not something that can just be stopped because of not wanting to take the medications. Disposition is difficult. We are working with the family. Have discussed hospice options. The family is not really, I think, too eager for that or a DNR status at this point. So we are going to continue to help them work through that but even if he does survive through the admission, his long-term goal is poor. Obviously, if he can stabilize for the total of 6 months, then he could be re-evaluated for transplant, but at this point, I think with his persistent encephalopathy I think that is unlikely and family is aware of this now. We will continue to work with them. cc: Joaquín Chua MD
--- NOTE | 2018-10-25 19:21 | NEPHROLOGY PROGRESS NOTE ---
DATE: 10/25/2018 SUBJECTIVE: He remains obtunded. OBJECTIVE: Vital Signs: Blood pressure 152/68, heart rate 88, respirations 20, afebrile. Generally: Unresponsive. Skin: Warm and dry. Neck: Neck veins are not appreciated. Heart: Regular. Abdomen is distended. Extremities: Have no edema. IMPRESSION: Acute kidney injury. He has responded well to IV fluids so I assume this is prerenal. His albumin is now 3.7, following replacement. Excellent urine output. He does have a moderate metabolic acidosis with a serum bicarbonate of 15 with anion gap of 16. This has changed very little since admission. cc: Emmanuel Noble MD
[2018-10-25] MEDS: HALDOL IV PRN (20:00)
[2018-10-26] MEDS: HALDOL IV PRN ×4 (01:34→15:40)
[2018-10-26] MEDS: FLAGYL 500 MG/NS 500 MG/100 ML IVPB IV SCH ×3 (05:34→21:05)
[2018-10-26] MEDS: ATIVAN IV PRN ×2 (05:34→12:32)
[2018-10-26] MEDS: LOPRESSOR IV SCH ×3 (05:34→18:47)
[2018-10-26 06:51] LABS: BASO# 0.01 X1000 (0.0-0.2); BASO% 0.3 % (0.0-0.8); EOS# 0.06 X1000 (0.0-0.7); EOS% 1.8 % (0.0-10.0); HEMATOCRIT 22.5 % (42.0-52.0); HEMOGLOBIN 7.2 g/dL (14.0-18.0); LYMPH# 0.53 X1000 (1.2-3.4); LYMPH% 15.5 % (20.5-51.1); MCH 34.4 PG (27-31); MCV 107.7 FL (81-99); MONO# 0.48 X1000 (0.11-0.59); MPV 11.1 FL (7.4-10.4); NEUT# 2.34 X1000 (1.4-6.5); NEUT% 68.4 % (42.2-75.2); PLT 58 X1000 (130-400); RBC 2.09 XMIL (4.7-6.1); RDW 19.7 % (11.5-14.5); WBC 3.42 X1000 (4.8-10.8)
[2018-10-26 06:53] LABS: ALBUMIN 4.2 g/dL (3.5-5.0); CALCIUM 9.4 mg/dL (8.8-10.2); CREATININE 1.4 mg/dL (0.7-1.2); PHOSPHORUS 3.2 mg/dL (2.7-4.5); POTASSIUM 3.6 mmol/L (3.5-5.1)
[2018-10-26] MEDS: VITAMIN K 10 MG in NS 50 ML IV SCH (08:55)
[2018-10-26] MEDS: D5W 1,000 ML IV SCH (08:56)
[2018-10-26] MEDS: CLINIMIX E 4.25%-5% SOLUTION 1,000 ML IV SCH (08:57)
[2018-10-26] MEDS: LEVAQUIN 250 MG/D5W 250 MG/50 ML IVPB IV SCH (08:57)
--- NOTE | 2018-10-26 09:47 | PROVIDER PROGRESS NOTE ---
Progress Note S: No acute overnight events. patient continues to be agitated requiring ativan and haldol. He complains of thirst. No rectal bleeding or melena. ROS limited. O: Last Vital Signs Temp 98.5 F 10/26/18 08:00 Pulse 85 10/26/18 06:00 Resp 21 10/26/18 06:00 BP 128/83 10/26/18 06:00 Pulse Ox 99 10/26/18 06:00 Height 5 ft 7 in Weight 158 lb 4 oz GEN: awake, NAD HEENT: anicteric, dry MM NECK: supple, no jvd PULM: CTAB CV: RRR, no murmurs ABD: decreased distension, BS present, NT EXT: no cce NEURO: moving all extremities, restrained, awake, confused, agitated, follows commands intermittently LABS: 10/26/18 10/26/18 04:45 04:45 WBC 3.42 L Hgb 7.2 L D Plt Count 58 L Sodium 152 H Potassium 3.6 Chloride 118 H Carbon Dioxide 18 L Anion Gap 16 BUN 54 H Creatinine 1.4 H A/P: Mr. Zachary Bolden is a 48 year old man with HCV and HBV cirrhosis c/b ascites and non-bleeding esophageal varices s/p EVL who was readmitted with hepatic encephalopathy. Per caregiver at bedside, the patient had been receiving lactulose regularly; however, he developed N/V and was unable to keep medicine down. He subsequently developed confusion. Of note, she reports that he had blood in his emesis. Currently, he does not appear to be having a GI bleed. He has known varices. His ALLAN is improving. He remains confused. Worsening hypernatremia. Renal following. D5W started. On Clinimix. Summary of recommendations: - He is on antibiotics for unclear indication. Recommend discontinuing - avoid benzos; prefer haldol prn - correct hypernatremia - transfuse pRBC for hgb <7, goal 7-8, do not over transfuse # Decompensated HBV/HCV cirrhosis - PSE: on lactulose enemas BID; rectal tube in place; avoid BENZOS and narcotics, correct metabolic derangements - Cirrhosis: trending LFTs - Ascites: avoid diuretics; start low Na when patient able to take PO - EV: s/p EVL on 7/16; no history of variceal bleed; patient is due for repeat EGD # Hypernatremia: correct free water deficit # ALLAN: improving; s/p albumin; likely setting of volume depletion; holding diuretics, avoid nephrotoxins # Anemia: no overt bleeding; trending H/H # Thrombocytopenia: stable # PUD: continue PPI BID # Severe protein calorie malnutrition: on Clinimix Will follow with you. Please call with questions
[2018-10-26] MEDS: NON-FORMULARY MED PR SCH ×2 (11:17→21:05)
--- NOTE | 2018-10-26 14:02 | NEPHROLOGY PROGRESS NOTE ---
DATE: 10/26/2018 SUBJECTIVE: He remains unresponsive. Eyes are open. Moans. OBJECTIVE: Vitals: Blood pressure 135/88, heart rate 91, respirations 16, afebrile. General: No acute distress. Skin: Warm and dry. Conjunctivae are pink. Neck veins are not distended. Cardiovascular: Heart is regular. Abdomen: Distended bowel sounds are present. Extremities: No edema, clubbing, or cyanosis. IMPRESSION: 1. Acute kidney injury. Intravascular volume depletion. Improved. 2. Hypernatremia. I have changed his IV fluids to D5 water today. Observe his response. cc: Emmanuel Noble MD
[2018-10-26] MEDS: PROTONIX IV SCH (14:30)
--- NOTE | 2018-10-26 14:55 | PROGRESS NOTE ---
DATE: 10/26/2018 SUBJECTIVE: He is confused but he is at least somewhat awake. He is at least somewhat trying to get up and about. I let him drink some water and he drank very quickly, but no choking or dysphagia or anything like that. He is still very agitated. OBJECTIVE: Blood pressure is 129/85, heart rate 80, respiratory rate 20, temperature 98 degrees.Cardiovascular: Regular rate and rhythm. Pulmonary: Bilateral breath sounds clear to auscultation. GI: Soft, nontender, nondistended. Bowel sounds are positive. LABORATORY DATA: White count is 3.4, Hemoglobin and hematocrit 7 and 22, platelets 58,000. Sodium is up to 152, creatinine of 1.4. PROBLEM LIST: 1. Hepatic encephalopathy. He seems to be doing okay. We will continue lactulose and follow. 2. Acute kidney injury that is improving. Continue fluids. 3. Ascites. 4. Coagulopathy. He has been on vitamin K, so we will continue to monitor. 5. Hypernatremia has still seems to be a significant issue. We will give him D5 and encourage p.o. fluids today as long as he is not having any choking hopefully as his mental status and improves. Continue to monitor. DISPOSITION: I will need to correct the note from yesterday. I spoke to Dr. Cole, he is a hepatic transplant physician at in [place] at [facility]. I spoke to him yesterday about the patient not Dr. Davis, the file clerk data entry. So he has said he was not a candidate at this point. He had to be sober for 6 months. We are going to continue supportive care and follow. The family of course is not wanting to pursue DNR or anything else. We are just going to continue full court press and hopefully he stabilizes. There is some prognosis encouragement since his renal function is turning around, so I am hopeful that will happen. cc: Joaquín Chua MD
[2018-10-26] MEDS ORDERED: GEODON IM PRN (16:53)
[2018-10-26] MEDS ORDERED: STERILE WATER INJ. INJ PRN (16:53)
[2018-10-26] MEDS ORDERED: GEODON IM ONE (16:53)
[2018-10-26] MEDS ORDERED: STERILE WATER INJ. INJ ONE (16:53)
[2018-10-26] MEDS: PHENOBARBITAL IV PRN (22:47)
[2018-10-27] MEDS: LOPRESSOR IV SCH ×5 (00:30→23:29)
[2018-10-27] MEDS: ATIVAN IV PRN ×2 (00:30→15:25)
[2018-10-27] MEDS: D5W 1,000 ML IV SCH ×3 (04:27→17:44)
[2018-10-27] MEDS: CLINIMIX E 4.25%-5% SOLUTION 1,000 ML IV SCH ×2 (04:27→21:12)
[2018-10-27] MEDS: FLAGYL 500 MG/NS 500 MG/100 ML IVPB IV SCH ×3 (05:35→21:11)
[2018-10-27 06:21] LABS: AGAP 15; ALBUMIN 4.2 g/dL (3.5-5.0); BUN 41 mg/dL (8-22); CALCIUM 9.1 mg/dL (8.8-10.2); CHLORIDE 120 mmol/L (98-107); COSMO 318; CREATININE 0.9 mg/dL (0.7-1.2); ESTIMATED GFR > 60; GLUCOSE 147 mg/dL (70-104); PHOSPHORUS 2.7 mg/dL (2.7-4.5); POTASSIUM 3.7 mmol/L (3.5-5.1); SODIUM 154 mmol/L (136-145); TCO2 19 mmol/L (25-35)
[2018-10-27 06:28] LABS: EOS# 0.08 X1000 (0.0-0.7); EOS% 3.1 % (0.0-10.0); HEMOGLOBIN 8.2 g/dL (14.0-18.0); LYMPH# 0.51 X1000 (1.2-3.4); LYMPH% 20.1 % (20.5-51.1); MONO# 0.23 X1000 (0.11-0.59); MONO% 9.1 % (1.7-9.3); MPV 11.3 FL (7.4-10.4); NEUT# 1.72 X1000 (1.4-6.5); NEUT% 67.7 % (42.2-75.2); PLT 50 X1000 (130-400); RDW 19.4 % (11.5-14.5)
[2018-10-27 07:02] LABS: ALB/GLOB RATIO 1.8; ALBUMIN 3.9 g/dL (3.5-5.0); DIRECT BILIRUBIN 0.6 mg/dL (0.00-0.20); TOTAL BILIRUBIN 2.02 mg/dL (0.20-1.00); TOTAL PROTEIN 6.1 g/dL (6.3-8.3)
[2018-10-27 08:07] LABS: HEMATOCRIT 25.3 % (42.0-52.0)
[2018-10-27 08:08] LABS: MCH 35.2 PG (27-31); MCHC 32.4 g/dL (33-37)
[2018-10-27 08:29] LABS: RBC 2.33 XMIL (4.7-6.1); WBC 2.93 X1000 (4.8-10.8)
[2018-10-27 08:30] LABS: MCV 108.6 FL (81-99)
[2018-10-27] MEDS: LEVAQUIN 250 MG/D5W 250 MG/50 ML IVPB IV SCH (09:04)
[2018-10-27] MEDS ORDERED: APRESOLINE IV PRN (11:52)
[2018-10-27] MEDS: NON-FORMULARY MED PR SCH ×2 (12:56→21:49)
--- NOTE | 2018-10-27 12:57 | PROGRESS NOTE ---
DATE: 10/27/2018 SUBJECTIVE: The patient is still confused although he may have some reasons for that as far as his hypernatremia versus just plain hepatic encephalopathy. OBJECTIVE: Blood pressure 188/82, heart rate of 77, respiratory rate 14, temperature was 97.8 degrees, 100% on room air.Cardiovascular: Tachycardic. Pulmonary: Bilateral breath sounds. Clear to auscultation. GI: Soft, nontender, nondistended. Bowel sounds are positive. He was actually distended. He has got ascites on exam. White count 2.9, hemoglobin and hematocrit 8 and 25, platelets of 50,000. Sodium is still high at 154. BUN and creatinine are down to 41 and 0.9. T bilirubin is up to 2 with most of it being indirect incidentally. PROBLEM LIST: 1. Encephalopathy likely multifactorial. At this point may be more metabolic. We will continue lactulose and follow closely. 2. Acute kidney injury. That is actually resolving or has resolved with fluids so appreciate Renal input. 3. Ascites. We will need to do paracentesis at some point and follow. 4. Coagulopathy. We will monitor his INR. I think he is stabilized, received several days of vitamin K. 5. Hypernatremia. He is on Clinimix. He is on D5. I would like to encourage p.o. Nurses are concerned about aspiration, which is a serious concern with him, but we need to see about trying to give him some stuff p.o. if he is awake at least and follow. 6. Disposition is still tenuous. Family wants full court press at this point. 7. Hypertension, uncontrolled. He is on metoprolol. I have added nitroglycerin just to add a measure control and follow. cc: Joaquín Chua MD
[2018-10-27] MEDS: NITROGLYCERIN TOP SCH ×3 (13:00→23:26)
[2018-10-27] MEDS: PROTONIX IV SCH (15:24)
[2018-10-27] MEDS: SODIUM CHLORIDE 0.9% INJ SCH (15:24)
[2018-10-27] MEDS: PHENOBARBITAL IV PRN (16:15)
[2018-10-28] MEDS: D5W 1,000 ML IV SCH ×3 (00:42→11:55)
[2018-10-28] MEDS: ATIVAN IV PRN ×2 (00:57→05:33)
[2018-10-28] MEDS: NITROGLYCERIN TOP SCH ×3 (05:10→17:59)
[2018-10-28] MEDS: FLAGYL 500 MG/NS 500 MG/100 ML IVPB IV SCH ×3 (05:12→22:37)
[2018-10-28 05:57] LABS: AGAP 9; BUN 31 mg/dL (8-22); CALCIUM 8.6 mg/dL (8.8-10.2); CHLORIDE 114 mmol/L (98-107); COSMO 290; CREATININE 0.9 mg/dL (0.7-1.2); ESTIMATED GFR > 60; GLUCOSE 113 mg/dL (70-104); POTASSIUM 3.9 mmol/L (3.5-5.1); SODIUM 142 mmol/L (136-145); TCO2 19 mmol/L (25-35)
[2018-10-28] MEDS: LOPRESSOR IV SCH ×2 (06:02→13:05)
[2018-10-28 07:02] LABS: BASO# 0.01 X1000 (0.0-0.2); BASO% 0.3 % (0.0-0.8); EOS# 0.13 X1000 (0.0-0.7); EOS% 3.5 % (0.0-10.0); HEMATOCRIT 26.5 % (42.0-52.0); HEMOGLOBIN 8.6 g/dL (14.0-18.0); LYMPH# 0.71 X1000 (1.2-3.4); LYMPH% 18.9 % (20.5-51.1); MCH 35.4 PG (27-31); MCHC 32.5 g/dL (33-37); MCV 109.1 FL (81-99); MONO# 0.34 X1000 (0.11-0.59); MONO% 9.1 % (1.7-9.3); MPV 11.3 FL (7.4-10.4); NEUT# 2.56 X1000 (1.4-6.5); NEUT% 68.2 % (42.2-75.2); PLT 44 X1000 (130-400); RBC 2.43 XMIL (4.7-6.1); RDW 18.7 % (11.5-14.5); WBC 3.75 X1000 (4.8-10.8)
[2018-10-28] MEDS: LEVAQUIN 250 MG/D5W 250 MG/50 ML IVPB IV SCH (08:29)
[2018-10-28] MEDS: NON-FORMULARY MED PR SCH ×2 (12:08→23:44)
[2018-10-28] MEDS ORDERED: ALBUMIN 25% IV ONE (14:27)
[2018-10-28] MEDS ORDERED: DUONEB (A & A) INH PRN (14:28)
[2018-10-28] MEDS: LASIX IV SCH (14:38)
[2018-10-28] MEDS: PROTONIX IV SCH (14:38)
[2018-10-28] MEDS: CLINIMIX E 4.25%-5% SOLUTION 1,000 ML IV SCH (14:39)
--- NOTE | 2018-10-28 15:09 | PROGRESS NOTE ---
DATE: 10/28/2018 SUBJECTIVE: Patient has no major complaints. OBJECTIVE: Vitals: Blood pressure 125/106, heart rate 71, respiratory rate 13, temperature 97.6 degrees. Urine output apparently has come down per nursing staff. Cardiovascular: Regular rate and rhythm. Pulmonary: Bilateral breath sounds, clear to auscultation. GI: Soft, nontender, nondistended. Bowel sounds are positive. LABORATORY DATA: White count is 3, hemoglobin and hematocrit 8 and 26, platelets of 44,000. PROBLEM LIST: 1. Encephalopathy, hepatic and possibly associated with metabolic components. We will repeat ammonia levels. Previously, they have improved. He has getting lactulose enemas as he has not been awake enough to get up and try to take p.o., and today he seems even more sedated than he was previously. 2. Acute kidney injury with concern over hepatorenal syndrome. His kidney function is improved with hydration. We will continue to monitor. 3. Coagulopathy. We will continue to follow closely. 4. Hypernatremia. He is on Clinimix, and we will continue to monitor, but hypernatremia is finally resolved, so I stopped his D5. 5. Hypertension. He is on metoprolol, nitroglycerin. 6. Disposition. This is a difficult situation. He has gotten over his renal failure, but he is still persistently encephalopathic. He has a terminal cirrhosis, and he is not a transplant candidate, but family does not want to accept or discuss end of life care at this point and just want to pursue current measures, but unfortunately he will not be able to be a transplant evaluation for 3 months, so we will continue supportive measures. 7. Symptomatic ascites. I anticipate he will we may need to get that situated. cc: Joaquín Chua MD [facility]
[2018-10-28] MEDS: DUONEB (A & A) INH SCH ×2 (15:26→22:22)
[2018-10-28 16:52] LABS: URINE SOURCE CATH
[2018-10-28 16:55] LABS: BILIRUBIN URINE NEGATIVE (NEGATIVE); BLOOD URINE LARGE (NEGATIVE); COLOR STRAW; GLUCOSE URINE NEGATIVE (NEGATIVE); KETONE URINE NEGATIVE (NEGATIVE); LEUKOCYTES URINE NEGATIVE (NEGATIVE); NITRITE URINE NEGATIVE (NEGATIVE); PROTEIN URINE NEGATIVE (NEGATIVE); SP GRAVITY URINE 1.006; TURBIDITY URINE CLEAR (CLEAR); UROBILINOGEN URINE NORMAL (NORMAL)
[2018-10-28 16:56] LABS: UR EPITHELIAL CELLS <10 /HPF (<10); URINE BACTERIA NEGATIVE /HPF; URINE WBC <10 /HPF (<10)
--- NOTE | 2018-10-28 18:30 | NEPHROLOGY PROGRESS NOTE ---
DATE: 10/28/2018 SUBJECTIVE: About the same. Really unresponsive. OBJECTIVE: Vital Signs: Blood pressure 106/78, heart rate 73, respirations 14, afebrile. General: No acute distress. Skin: Warm and dry. Neck: Neck veins are not distended. Heart: Regular. Abdomen: Distended. Extremities: Have no edema. IMPRESSION: 1. Acute kidney injury. Resolved. 2. Hypernatremia. Resolved. I will sign off. If I can be of further assistance, please do not hesitate to call. cc: Emmanuel Noble MD
[2018-10-29] MEDS: NITROGLYCERIN TOP SCH ×3 (00:27→13:02)
[2018-10-29] MEDS: DUONEB (A & A) INH SCH ×2 (03:06→09:57)
[2018-10-29] MEDS: CLINIMIX E 4.25%-5% SOLUTION 1,000 ML IV SCH ×2 (04:57→14:57)
[2018-10-29] MEDS: FLAGYL 500 MG/NS 500 MG/100 ML IVPB IV SCH ×2 (04:57→12:46)
[2018-10-29 07:10] LABS: INR 2.92; PROTIME 31.3 Seconds (11.0-16.0)
[2018-10-29 07:14] LABS: ALB/GLOB RATIO 1.8; ALBUMIN 3.8 g/dL (3.5-5.0); DIRECT BILIRUBIN 0.5 mg/dL (0.00-0.20); TOTAL BILIRUBIN 2.24 mg/dL (0.20-1.00); TOTAL PROTEIN 5.9 g/dL (6.3-8.3)
[2018-10-29 07:44] LABS: AGAP 12; BUN 32 mg/dL (8-22); CALCIUM 8.9 mg/dL (8.8-10.2); CHLORIDE 116 mmol/L (98-107); COSMO 297; CREATININE 0.9 mg/dL (0.7-1.2); ESTIMATED GFR > 60; GLUCOSE 86 mg/dL (70-104); POTASSIUM 3.6 mmol/L (3.5-5.1); SODIUM 146 mmol/L (136-145); TCO2 18 mmol/L (25-35)
--- NOTE | 2018-10-29 07:59 | Diag Imaging Result Doc PS360 ---
EXAM: CHEST-1 VIEW INDICATION: wheezing, desaturating TECHNIQUE: One view COMPARISON: 10/23/2018 FINDINGS: Inspiration is suboptimal with the lung volumes lower than the previous study. The left IJ catheter is in stable position with its tip possibly in the internal mammary vein or perhaps a superior intercostal vein. There is hazy opacity bilaterally that likely represents edema. It appears to have worsened slightly. It is worse on the right. Some of this worsening may be due to lower lung volumes. No other new consolidations are identified. Cardiac silhouette is stable. IMPRESSION: Interval slight worsening as described. Electronically signed by Puneet Arias 10/29/2018 7:56 AM
[2018-10-29 08:33] LABS: BASO# 0.02 X1000 (0.0-0.2); BASO% 0.4 % (0.0-0.8); EOS# 0.18 X1000 (0.0-0.7); EOS% 3.7 % (0.0-10.0); HEMATOCRIT 27.1 % (42.0-52.0); HEMOGLOBIN 8.9 g/dL (14.0-18.0); IMM GRAN# 0.03 X1000 (0.0-0.04); IMM GRAN% 0.6 % (0.0-0.5); LYMPH# 0.84 X1000 (1.2-3.4); MCH 35.5 PG (27-31); MCHC 32.8 g/dL (33-37); MONO# 0.49 X1000 (0.11-0.59); MONO% 9.9 % (1.7-9.3); MPV 10.8 FL (7.4-10.4); NEUT# 3.37 X1000 (1.4-6.5); NEUT% 68.4 % (42.2-75.2); PLT 46 X1000 (130-400); RBC 2.51 XMIL (4.7-6.1); RDW 18.5 % (11.5-14.5); WBC 4.93 X1000 (4.8-10.8)
[2018-10-29] MEDS: LASIX IV SCH ×2 (09:16→15:04)
[2018-10-29] MEDS: LEVAQUIN 250 MG/D5W 250 MG/50 ML IVPB IV SCH (09:16)
[2018-10-29] MEDS: NON-FORMULARY MED PR SCH (11:28)
[2018-10-29] MEDS: PROTONIX IV SCH (14:41)
[2018-10-29] MEDS: SODIUM CHLORIDE 0.9% INJ SCH (14:41)
[2018-10-29] MEDS: MORPHINE IV PRN ×2 (14:42→20:34)
[2018-10-29] MEDS: ALDACTONE PO SCH (15:03)
--- NOTE | 2018-10-29 15:03 | PROGRESS NOTE ---
DATE: 10/29/2018 SUBJECTIVE: Patient has no major complaints. OBJECTIVE: Blood pressure is 125/92, heart rate of 112, respiratory rate 27, temperature 98.6 degrees, 97% on room air.Cardiovascular: Regular rate and rhythm. Pulmonary: Bilateral breath sounds clear to auscultation. GI: Soft, nontender, nondistended. Bowel sounds are positive. Extremities: No clubbing or cyanosis. Lymphatic: No peripheral edema. Neurological: Nonfocal. LABORATORY DATA: White count 4, hemoglobin and hematocrit 8 and 27, platelets of 46,000. Chemistry, sodium is up to 146, T bilirubin 2.2. Urine was okay, a little bit of red blood cells but nothing major. INR very elevated 2.9. Chest x-ray shows low lung volumes, hazy opacities with possibility of edema which is worse than previous. PROBLEM LIST: 1. Encephalopathy. That seems to be doing better. He is more awake, going to switch his lactulose to p.o., switch his medications to p.o., advance his diet, follow. He is still somewhat confused. 2. Acute kidney injury. That is pretty much resolved. We will continue to monitor, put him back on his Aldactone and will do IV Lasix for the time being. 3. Coagulopathy. We will reinstitute vitamin K. Be difficult because he is going to need a paracentesis and he is both thrombocytopenic and coagulopathic. We will try to do that tomorrow because he has fairly tense ascites. 4. Hypernatremia. He is seems to be better although it started jumping up a little bit. We will continue to monitor. 5. Hypertension. Continue his regular medications. 6. Tense ascites. We will plan on ultrasound tomorrow. I really would prefer not giving him FFP to reverse his INR but his INR is fairly elevated so we will continue to monitor after vitamin K and follow closely. cc: Joaquín Chua MD
[2018-10-29] MEDS: ATROVENT NEB INH SCH ×2 (15:28→22:01)
[2018-10-29] MEDS: XOPENEX NEB INH SCH ×2 (15:28→22:01)
[2018-10-29] MEDS: VITAMIN K 10 MG in NS 50 ML IV SCH (15:30)
[2018-10-29] MEDS: XIFAXAN PO SCH (20:26)
[2018-10-29] MEDS: LACTULOSE PO SCH (20:26)
[2018-10-30] MEDS: LASIX IV SCH (03:06)
[2018-10-30] MEDS: MORPHINE IV PRN ×3 (03:09→22:19)
[2018-10-30] MEDS: ATROVENT NEB INH SCH ×4 (03:21→21:54)
[2018-10-30] MEDS: CLINIMIX E 4.25%-5% SOLUTION 1,000 ML IV SCH ×2 (05:24→11:45)
[2018-10-30 06:54] LABS: INR 2.55; PROTIME 28.1 Seconds (11.0-16.0)
[2018-10-30 07:05] LABS: AGAP 13; BUN 32 mg/dL (8-22); CALCIUM 8.5 mg/dL (8.8-10.2); CHLORIDE 109 mmol/L (98-107); COSMO 289; CREATININE 0.9 mg/dL (0.7-1.2); ESTIMATED GFR > 60; GLUCOSE 83 mg/dL (70-104); POTASSIUM 3.6 mmol/L (3.5-5.1); SODIUM 142 mmol/L (136-145); TCO2 20 mmol/L (25-35)
[2018-10-30 07:28] LABS: BASO# 0.03 X1000 (0.0-0.2); BASO% 0.5 % (0.0-0.8); EOS# 0.22 X1000 (0.0-0.7); EOS% 3.6 % (0.0-10.0); HEMATOCRIT 27.1 % (42.0-52.0); IMM GRAN# 0.04 X1000 (0.0-0.04); IMM GRAN% 0.7 % (0.0-0.5); LYMPH# 1.11 X1000 (1.2-3.4); LYMPH% 18.2 % (20.5-51.1); MCH 35.4 PG (27-31); MCHC 33.2 g/dL (33-37); MCV 106.7 FL (81-99); MONO# 0.73 X1000 (0.11-0.59); MPV 11.8 FL (7.4-10.4); NEUT# 3.96 X1000 (1.4-6.5); PLT 49 X1000 (130-400); RBC 2.54 XMIL (4.7-6.1); RDW 18.7 % (11.5-14.5); WBC 6.09 X1000 (4.8-10.8)
[2018-10-30] MEDS ORDERED: LASIX PO SCH (09:00)
[2018-10-30] MEDS: ALDACTONE PO SCH (09:38)
[2018-10-30] MEDS: LEVAQUIN 250 MG/D5W 250 MG/50 ML IVPB IV SCH (09:38)
[2018-10-30] MEDS: LACTULOSE PO SCH ×2 (09:38→20:26)
[2018-10-30] MEDS: XIFAXAN PO SCH ×2 (09:38→20:26)
[2018-10-30] MEDS: VITAMIN K 10 MG in NS 50 ML IV SCH (09:38)
[2018-10-30] MEDS: XOPENEX NEB INH SCH ×3 (10:50→21:54)
--- NOTE | 2018-10-30 12:27 | PROGRESS NOTE ---
DATE: 10/30/2018 SUBJECTIVE: The patient has no major complaints. He finally I think pretty much at baseline for him. I mean he does not have a glazed look in his eye. He is asking for food. He is not agitated, so he finally has made it through his bout of metabolic encephalopathy. No major complaints. He seems like his pain is under control too. OBJECTIVE: Blood pressure 112/89, heart rate 93, respiratory rate 12, temperature 97.5 degrees, and 97% on room air.Cardiovascular: Regular rate and rhythm. Pulmonary: Bilateral breath sounds clear to auscultation. GI: Soft and non tender, but he is extremely distended. LABORATORY: White count of 6, hemoglobin and hematocrit 9 and 27, and platelets 49,000. INR 2.5. Rest of the labs look okay. Sodium 142. Mag 1.7. PROBLEM LIST: 1. Encephalopathy. He seems to be doing better, but we can continue lactulose. He is on Xifaxan, and he seems to be doing okay. 2. Symptomatic ascites. We really do need to consider tap, although there is concern that large volume paracentesis may have precipitated some of his acute kidney injury, but he has got dense ascites. We are at least going to have to get some of the fluid off, but he is thrombocytopenic, and he is coagulopathic. We need to get those numbers adjusted a bit I guess before we necessarily consider paracentesis. 3. Acute kidney injury that is resolved. I have resumed his diuretics because his ascites is an issue. 4. Coagulopathy that is actually progressed, but to be fair, I do not think he has not been eating effectively even though his vitamin K stores have been depleted. We have reinstituted that, and we will see how he does. 5. Hypertension is stable. DISPOSITION: I think he is probably okay to go to the floor soon. Long-term, this is going to be a difficult situation, but if he can maintain himself off drugs including marijuana for a full 6 months he can be evaluated for transplant, but his readmission rate is high. I think the family at least is aware of poor prognosis, although they do not want to pursue any comfort measures as far as I can tell based on what I have seen. cc: Joaquín Chua MD
[2018-10-30] MEDS: SODIUM CHLORIDE 0.9% INJ SCH (15:26)
[2018-10-30] MEDS: PROTONIX IV SCH (15:26)
--- NOTE | 2018-10-30 16:14 | Diag Imaging Result Doc PS360 ---
EXAM: US ABD PARACENTESIS W S/I 10/30/2018 HISTORY: ascites TECHNIQUE: Ultrasound-guided paracentesis COMMENT: The risks and benefits the procedure including the possibility of bleeding, infection, reaction to lidocaine, and puncture of hollow viscus was discussed with the patient and he agreed to the procedure. Following sterile preparation the skin anterolaterally on the right and administration 1% lidocaine to the skin and deeper soft tissues, the paracentesis catheter was placed and subsequently 8 L of straw-colored fluid was drained. IMPRESSION: Successful ultrasound-guided paracentesis. Electronically signed by David Rincon 10/30/2018 4:12 PM
[2018-10-30] MEDS ORDERED: ALBUMIN 25% IV ONE (17:01)
--- NOTE | 2018-10-30 17:04 | PROVIDER PROGRESS NOTE ---
Progress Note S: No acute overnight events. Patient complains of back pain, abdominal distension, and dry mouth. No rectal bleeding or hematemsis. O: Last Vital Signs Temp 97.9 F 10/30/18 16:00 Pulse 108 H 10/30/18 16:00 Resp 12 10/30/18 16:00 BP 117/79 10/30/18 16:00 Pulse Ox 97 10/30/18 16:00 Height 5 ft 7 in Weight 173 lb 6.4 oz GEN: NAD, awake, alert, oriented to self and place HEENT: anicteric NECK: supple, no JVD PULM: CTAB, no wheezing CV: RRR no murmurs ABD: soft NT, BS present; tense ascites EXT: no cce NEURO: restained, awake LABS: 10/30/18 10/30/18 10/30/18 04:05 04:05 04:05 WBC 6.09 Hgb 9.0 L Plt Count 49 L INR 2.55 Sodium 142 Potassium 3.6 Chloride 109 H Carbon Dioxide 20 L BUN 32 H Creatinine 0.9 Glucose 83 A/P: Mr. Zachary Bolden is a 48 year old man with HCV and HBV cirrhosis c/b ascites and non-bleeding esophageal varices s/p EVL who was readmitted with hepatic encephalopathy. His course is complicated by hypernatremia. No obvious source of infection. Stopped levaquin since has bee on abx since 10/25. # Decompensated HBV/HCV cirrhosis - PSE: on lactulose and rifaximin; avoid BENZOS and narcotics, correct metabolic derangements - Cirrhosis: trending LFTs - Ascites: s/p LVP today with 8L removed; will give albumin 100g IV once (ordered); start lasix 40mg daily tomorrow; continue aldactone 100mg daily - EV: s/p EVL on 09/11; no history of variceal bleed; will plan for repeat EGD on Monday, NPO after MN night # HCC screening: US neg 10/22, repeat in 6 months # OLT: not a candidate for transplant given lack of insurance; he does not drink alcohol # Hypernatremia: intravascularly dry; improved with corrected free water deficit; avoid IV diuretics # ALLAN: improved; avoid nephrotoxins; avoid IV diuresis # Anemia: no overt bleeding; trending H/H # Thrombocytopenia: stable # PUD: continue PPI, transition to oral tomorrow # Severe protein calorie malnutrition: low salt diet # Coagulopathy: improving with vitamin K; nutritional Will follow with you. Please call with questions
[2018-10-31] MEDS: ATROVENT NEB INH SCH ×4 (03:17→21:24)
[2018-10-31] MEDS: MORPHINE IV PRN ×5 (04:10→22:55)
[2018-10-31] MEDS: PROTONIX PO SCH ×2 (05:55→06:26)
[2018-10-31 07:10] LABS: INR 3.21; PROTIME 33.8 Seconds (11.0-16.0)
[2018-10-31 07:31] LABS: AGAP 10; ALB/GLOB RATIO 1.9; ALBUMIN 3.7 g/dL (3.5-5.0); ALKALINE PHOSPHATASE 58 U/L (32-122); BUN 27 mg/dL (8-22); CALCIUM 8.4 mg/dL (8.8-10.2); CHLORIDE 107 mmol/L (98-107); COSMO 277; CREATININE 0.8 mg/dL (0.7-1.2); ESTIMATED GFR > 60; GLUCOSE 94 mg/dL (70-104); GOT 40 U/L (10-34); GPT 20 U/L (10-44); POTASSIUM 3.8 mmol/L (3.5-5.1); SODIUM 136 mmol/L (136-145); TCO2 19 mmol/L (25-35); TOTAL BILIRUBIN 2.05 mg/dL (0.20-1.00); TOTAL PROTEIN 5.7 g/dL (6.3-8.3)
[2018-10-31] MEDS ORDERED: ALBUMIN 25% IV ONE ×2 (08:24)
[2018-10-31] MEDS ORDERED: NS 500 ML IV ONE ×3 (08:59→09:08)
[2018-10-31] MEDS ORDERED: LASIX IV SCH ×3 (09:00→09:30)
[2018-10-31] MEDS: LASIX PO SCH (09:12)
[2018-10-31] MEDS: XIFAXAN PO SCH ×2 (09:12→20:31)
[2018-10-31] MEDS: VITAMIN K 10 MG in NS 50 ML IV SCH (09:13)
[2018-10-31] MEDS: LACTULOSE PO SCH ×2 (09:14→20:31)
[2018-10-31 09:15] LABS: HEMATOCRIT 23.3 % (42.0-52.0); HEMOGLOBIN 7.6 g/dL (14.0-18.0); MCH 34.5 PG (27-31); MCHC 32.6 g/dL (33-37); MCV 105.9 FL (81-99); MPV 11.5 FL (7.4-10.4); RBC 2.2 XMIL (4.7-6.1); WBC 3.53 X1000 (4.8-10.8)
[2018-10-31] MEDS: ALDACTONE PO SCH (09:24)
[2018-10-31] MEDS: XOPENEX NEB INH SCH ×3 (09:59→21:24)
[2018-10-31] MEDS: NICODERM PATCH TD SCH (10:24)
--- NOTE | 2018-10-31 14:33 | PROGRESS NOTE ---
DATE: 10/31/2018 SUBJECTIVE: Patient has no major complaints. He is much more awake, alert. His abdominal pain is better after paracentesis yesterday. OBJECTIVE: Blood pressure 97/71, heart rate of 82, respiratory rate 18, temperature 97.8 degrees.Cardiovascular: Regular rate and rhythm. Pulmonary: Bilateral breath sounds clear to auscultation. Gastrointestinal: Soft, nontender, nondistended. Bowel sounds were positive. LABORATORY DATA: White count 3.5, hemoglobin and hematocrit have dropped to hemoglobin 7 and hematocrit 23, platelets of 36,000. Creatinine is 19. Total bilirubin 2. Potassium is 3.2, BUN and creatinine stable PROBLEM LIST: 1. Encephalopathy. He seems to be resolving on lactulose and Xifaxan. 2. Symptomatic ascites. I have ordered testing on the fluid from yesterday; I am not entirely sure it was done. Hopefully, we can find it and tested it, but in any case, continue diuretics. 3. Acute kidney injury. That is also improved. We will monitor on current diuretics. 4. Coagulopathy. That seems to be getting worse. We will continue vitamin K. His hemoglobin and hematocrit have dropped. I am just concerned about bleeding, so we will go ahead and give him some FFP, vitamin K, and follow. 5. PUD. We will continue PPI and monitor. 6. Thrombocytopenia. That has worsened after procedure yesterday so we will give platelets today. He is also going to get 1 dose 1 blood dose and follow. We will continue to monitor. DISPOSITION: Pending clinical status. Prognosis still guarded, but overall he is improving. I anticipate tomorrow he will be able to go home in the next couple days. We will continue to monitor closely. He is overall guarded prognosis and discussed with the patient about his transplant status. He understands what is going on as far as that is concerned, so we will continue to monitor closely. He states he has been evaluated for transplant in the [place] area which is a possibility and discussed that I am pretty sure the national guidelines are that he has to be no drugs in his system for 6 months and he has to demonstrate compliance with his medications, which he describes he will but he has been positive for multiple substances, the last being marijuana which he says he still smokes. I explained that he would have to stop that before being evaluated and again for 6 months, so we will continue to monitor closely. cc: Joaquín Chua MD MTDD
--- NOTE | 2018-10-31 16:26 | PROVIDER PROGRESS NOTE ---
Progress Note S: No acute overnight events. Patient complains of back pain. No N/V/F, CP, abdominal pain, rectal bleeding or melena. O: Last Vital Signs Temp 97.8 F 10/31/18 12:50 Pulse 82 10/31/18 12:50 Resp 18 10/31/18 12:50 BP 97/71 10/31/18 12:50 Pulse Ox 96 10/31/18 12:50 Height 5 ft 7 in Weight 177 lb 2 oz GEN: NAD, awake, alert, oriented x3 HEENT: anicteric NECK: supple, no JVD PULM: CTAB, no wheezing CV: RRR no murmurs ABD: soft NT, BS present; + ascites EXT: no cce NEURO: no axsterixis LABS: 10/31/18 10/31/18 10/31/18 06:47 06:47 06:47 WBC 3.53 L Hgb 7.6 L D MCV 105.9 H Plt Count 36 L* INR 3.21 Sodium 136 Potassium 3.8 Chloride 107 Carbon Dioxide 19 L Anion Gap 10 BUN 27 H Creatinine 0.8 Total Bilirubin 2.05 H Direct Bilirubin 0.40 H AST 40 H ALT 20 Alkaline Phosphatase 58 Total Protein 5.7 L Albumin 3.7 A/P: Mr. Zachary Bolden is a 48 year old man with HCV and HBV cirrhosis c/b ascites and non-bleeding esophageal varices s/p EVL who was readmitted with hepatic encephalopathy. His course is complicated by hypernatremia. No obvious source of infection. Received empiric levaquin from 10/25 - 10/30. Notable hgb 7.6 <-- 9.0 # Decompensated HBV/HCV cirrhosis - PSE: improved; on lactulose and rifaximin; avoid BENZOS and narcotics, correct metabolic derangements - Cirrhosis: trending LFTs - Ascites: s/p LVP today with 8L removed 10/30; given 100g albumin; started on lasix 40mg daily today; continue aldactone 100mg daily - EV: s/p EVL on 09/11; no history of variceal bleed; will plan for repeat EGD on Monday, NPO after MN night # HCC screening: US neg 10/22, repeat in 6 months # OLT: not a candidate for transplant given lack of insurance; he does not drink alcohol # Hypernatremia: improved with corrected free water deficit; avoid IV diuretics # ALLAN: improved; avoid nephrotoxins; avoid IV diuresis # Anemia: no overt bleeding; trending H/H, recheck hgb this PM; transfuse prn for hgb <7; goal hgb 7-8; DO NOT OVERTRANSFUSE # Thrombocytopenia: 36K, no overt bleeding, transfuse prn for plts <20K # PUD: continue PPI PO # Severe protein calorie malnutrition: low salt diet # Coagulopathy: INR 3.2 despite vitamin K; 2/2 to underlying liver disease Will follow with you. Please call with questions
[2018-10-31 20:16] LABS: BODY FLUID SOURCE PERITONEAL FLUID; WBC BF 5 /cumm
[2018-10-31 20:24] LABS: ALBUMIN BODY FLUID 0.2 g/dL; AMYLASE BODY FLUID 19 U/L; TOTAL PROT BODY FLUID 0.4 g/dL
[2018-10-31] MEDS ORDERED: ZOFRAN IV ONE (23:06)
[2018-11-01] MEDS: MORPHINE IV PRN ×5 (04:18→21:07)
[2018-11-01] MEDS: ATROVENT NEB INH SCH ×4 (04:26→22:03)
[2018-11-01] MEDS: PROTONIX PO SCH (06:07)
--- NOTE | 2018-11-01 07:32 | PROGRESS NOTE ---
DATE: 11/01/2018 He is awake. He states he is still having quite a bit of back pain. Asked if we could go up on his medicine. He also has a low-grade nausea that seems to be persistent. OBJECTIVE: Vital Signs: He remains afebrile, temperature 97.5 degrees, pulse 85, respirations 13, blood pressure 102/63. HEENT: Pupils are equal and round. Lungs: Are clear in all lung cummins. Cardiovascular: Regular rhythm and rate without murmur or S3. No pedal edema. Urine output was 5 L. LABORATORY DATA: From this morning, hemoglobin is 9.2 yesterday it was 7.6. Electrolytes reviewed from yesterday. Sodium 136, potassium 3.8, chloride 107, BUN 27, creatinine 0.8. Total bilirubin was 2.05 which has come down from 2.24 on the 2nd. Direct bilirubin has come down from 0.5 to 0.4. His transaminases are down. AST is 40, ALT is 20. ASSESSMENT AND PLAN: 1. 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 Bilirubin is coming down a little bit. Transaminases have come down. 2. Encephalopathy. He is on lactulose. He is on rifaximin. I am going to try and avoid benzodiazepines and narcotics as much as possible, but he is complaining about pain. 3. Ascites. So they did a paracentesis on 10/30. They did give him some albumin following that. His abdomen appears soft, nontender. He is on Aldactone 100 mg daily. 4. He had an ultrasound on 10/22. Plan on repeating it in 6 months. As far as outpatient he is not a candidate for transplant given the lack of insurance. He is trying to I think apply to get on Medicaid. He does not drink alcohol. 5. Hyponatremia which is improved, corrected in his free water deficit. Trying to avoid loop diuretics if we can. 6. Acute kidney injury which is improved. Good urine output. 7. Anemia. We did give him some blood. His hemoglobin is less than 7. Hemoglobin is up to 9 today. Continue his proton pump inhibitors. He has severe protein calorie malnutrition. Encourage p.o. intake and low-salt diet. Coagulopathy, INR was 3.2 despite giving him some vitamin K. Continue to follow. He is not having any bruising or bleeding at this time. Creatinine is 0.8. Review of his orders: I do not see any change. He is on Lasix 40 mg p.o. daily per Dr. Quintero. He is on ipratropium bromide 0.5 mg q.6 hours, lactulose 30 mL b.i.d., nicotine patch 21 mg daily, Protonix 40 mg a day, Xifaxan 550 mg p.o. b.i.d., spironolactone 100 mg p.o. daily. He was given some albumin yesterday 50 g, actually he was given a total of 75 g of albumin. cc: Micah Marroquin MD
[2018-11-01 07:56] LABS: AGAP 9; BUN 25 mg/dL (8-22); CALCIUM 8.5 mg/dL (8.8-10.2); CHLORIDE 102 mmol/L (98-107); COSMO 273; CREATININE 0.6 mg/dL (0.7-1.2); ESTIMATED GFR > 60; GLUCOSE 97 mg/dL (70-104); SODIUM 134 mmol/L (136-145); TCO2 23 mmol/L (25-35)
[2018-11-01 07:59] LABS: INR 1.99; PROTIME 23.1 Seconds (11.0-16.0)
[2018-11-01 08:12] LABS: RBC 2.59 XMIL (4.7-6.1); WBC 4.63 X1000 (4.8-10.8)
[2018-11-01 08:13] LABS: HEMATOCRIT 26.5 % (42.0-52.0); HEMOGLOBIN 8.9 g/dL (14.0-18.0); MCH 34.4 PG (27-31); MCHC 33.6 g/dL (33-37); MCV 102.3 FL (81-99); MPV 12.2 FL (7.4-10.4); RDW 19.8 % (11.5-14.5)
[2018-11-01] MEDS: LASIX PO SCH (09:01)
[2018-11-01] MEDS: XIFAXAN PO SCH ×2 (09:01→21:07)
[2018-11-01] MEDS: NICODERM PATCH TD SCH (09:01)
[2018-11-01] MEDS: ALDACTONE PO SCH (09:01)
[2018-11-01] MEDS: LACTULOSE PO SCH ×2 (09:04→21:07)
[2018-11-01] MEDS ORDERED: VITAMIN K 10 MG in NS 50 ML IV ONE (09:12)
[2018-11-01] MEDS: XOPENEX NEB INH SCH ×3 (10:42→22:03)
--- NOTE | 2018-11-01 14:32 | Diag Imaging Result Doc PS360 ---
US ABD PARACENTESIS W S/I - 11/01/2018 INDICATION: Therapeutic paracentesis r/t liver failure COMPARISON: None FINDINGS: The risks and benefits of the procedure were discussed with the patient. All questions were answered. Written and verbal consent was obtained. Ultrasound scanning demonstrated ascites. Overlying skin was prepped and draped in sterile fashion. Local anesthesia was achieved with injection of 10 cc 1% lidocaine. The paracentesis catheter was advanced until the return of ascites fluid. 5.5 L of brisa serous fluid was aspirated. The catheter was withdrawn intact. There were no known complications. IMPRESSION: Technically successful ultrasound-guided paracentesis with no known complications. Electronically signed by Puneet Arias 11/01/2018 2:30 PM
--- NOTE | 2018-11-01 20:01 | INFECTIOUS DISEASE CONSULT REP ---
DATE: 11/01/2018 CONCLUSION: The patient has an infected left neck IV catheter site. RECOMMENDATIONS: I have ordered to daily clean the patient's right neck catheter site with Betadine and then follow that with putting on a fresh dressing. DISCUSSION: The patient was admitted to the hospital because of liver failure. He has very poor IV access, so a left-sided jugular venous catheter was put in. The site has become purulent. The patient has extremely poor IV access, and I am going to try to save this catheter site because it will be very difficult to find any other place to put a catheter in the patient. PAST MEDICAL HISTORY/REVIEW OF SYSTEMS: General: The patient says that he has been having intermittent fever or chills for the past 2 months. He also has been nauseated, and he has developed ascites. He also has diarrhea. Eyes and ears: He has decreased vision, but his hearing is okay. Cardiac: No chest pain or palpitations GI: See present illness. : No dysuria or flank pain. Bones/joints/muscles: No swollen joints or muscle aching. Neurologic: No seizures. No loss of motor or sensory function previous. PREVIOUS HOSPITALIZATIONS AND OPERATIONS: The patient denied having any prior hospitalization or surgery. MEDICAL DISEASES: Positive for hypertension, cirrhosis of the liver, alcoholism and use of illicit drugs, namely marijuana. INFECTIOUS DISEASE HISTORY: Positive for pneumonia, negative for UTI. FAMILY HISTORY: Positive for diabetes mellitus, hypertension and myocardial infarction. SOCIAL HISTORY: [place] is [place]. He lives with his son. He does not have a job. He smokes cigarettes, drinks alcoholic beverages and uses marijuana. LABORATORY DATA: Patient's CBC shows a white count of 4630, hemoglobin 8.9, and platelet count 52,000 creatinine is 0.6 GFR is greater than 60. The patient's chest x-ray shows that the patient has hazy opacities bilaterally which likely represent edema. The patient patient's peritoneal fluid shows no growth. HOME MEDICATIONS: The patient is on Lasix, lactulose, nicotine patch, Protonix, rifaximin and Aldactone. PHYSICAL EXAMINATION: Vital Signs: Temperature is 97.9 degrees, pulse 88, respirations 16, blood pressure 110/60. The patient weighs 165 pounds. General: This is a ill-appearing, middle-aged male. He is in no acute distress. Head/eyes/ears/nose/throat: He can hear my spoken words and see near objects. I did not notice any white patches on his tongue. Neck: No meningismus. There is on the left side an internal jugular venous catheter site. The site has some purulent drainage. It is minimally erythematous. There is no meningismus. Lungs: Clear to auscultation. Cardiovascular: Heart rate is regular. Abdomen: Protuberant with what appears to be ascites. His abdomen is not tender. Neurologic: The patient is awake. He can move his extremities. There is no tremor. Extremities: Patient has bilateral leg edema but no erythema. Integument: Patient has multiple tattoos. Thank you for the consult. cc: Everett Walton MD
--- NOTE | 2018-11-01 20:05 | GASTROENTEROLOGY PROGRESS NOTE ---
DATE: 11/01/2018 SUBJECTIVE: Patient resting in bed. He is awake and alert today. He had a paracentesis done 2 days ago. He has reaccumulated. His abdomen is getting distended again. He has decompensated liver cirrhosis. The patient denies any nausea, vomiting, vomiting blood, or passing blood in the stools. The patient has gone to [facility] in the past and also has been to another transplant center in [place]. He is not followed up there yet. We discussed improving the medication compliance with the patient. The patient is requesting another paracentesis. We will see if he can get it done as the patient's INR is still high at 1.9. PHYSICAL EXAMINATION: Vital Signs: Temperature of 97.9, pulse rate of 87, respiratory rate 17, blood pressure 102/62, saturating 97% room air. Body weight of 165 pounds 4 ounces. BMI 25.9. General: Patient is moderately built, lying in bed, in no acute distress. HEENT: Pale conjunctivae. Icteric sclerae. Neck: Supple. Abdomen: Distended. Mild discomfort in the abdomen. No guarding or rebound. Extremities: No cyanosis, clubbing. He has SCDs on the lower extremities. Neurologic: He is awake, alert, oriented x3. LABS: hemoglobin and hematocrit are 8.9 and 26.5, white count 4.63, platelet count of 52,000. Sodium of 135, potassium 4, chloride 102, bicarb 23, anion gap 9, BUN of 25, creatinine of 0.6, glucose of 97, calcium 8.5, INR 1.9, PT of 23.1. Fluid studies: White cells of 5 from 2 days ago and albumin of 0.2. SAAG was more than 1.1, but this could be artificially because the patient was receiving IV albumin. The patient's peritoneal fluid cultures have shown no growth, both anaerobic and regular cultures. IMPRESSION AND PLAN: 1. Decompensated hepatitis B and hepatitis C cirrhosis. Continue to follow the liver enzymes. 2. Hepatic encephalopathy. Continue lactulose and Xifaxan as before. Avoid benzodiazepines and narcotics. Correct metabolic derangements. 3. Ascites, status post large volume paracentesis on 10/30/[address] Rincon. Patient is reaccumulating again. He has been on Lasix and Aldactone once daily. 4. Esophageal varices, status post esophageal variceal ligation on 09/11/2018. He will be needing a repeat esophagogastroduodenoscopy tomorrow with Dr. Quintero. 5. Hepatocellular carcinoma. Screening ultrasound is -826 in 2019. 6. Acute kidney injury. Continue to watch for now. 7. Anemia. Continue to watch platelet count and hemoglobin, and transfuse to keep the hemoglobin close to 7 to 8 g/distal latency. 8. Thrombocytopenia. Continue to watch for now. Transfuse for platelets less than 20,000. 9. Peptic ulcer disease. Continue on proton pump inhibitors once daily. 10. Protein-calorie malnutrition. He has poor oral intake which he attributes to abdominal distention and ascites. We will try to do a paracentesis today. 11. Possible coagulopathy. Will give vitamin K one dose and we will give one dose of fresh frozen plasma in order to prepare for paracentesis today. 12. Disposition. Patient needs to follow up at [facility] for liver transplant. I have discussed that with the patient and the nursing staff. 13. Above discussed with patient. All questions answered. please call us with any further questions. cc: MD Micah Castillo MD
[2018-11-02] MEDS: MORPHINE IV PRN ×6 (01:27→23:08)
[2018-11-02] MEDS: ATROVENT NEB INH SCH ×5 (04:07→21:53)
[2018-11-02] MEDS: PROTONIX PO SCH (06:18)
[2018-11-02 07:52] LABS: INR 1.87
[2018-11-02 07:54] LABS: HEMOGLOBIN 9.7 g/dL (14.0-18.0)
[2018-11-02 08:14] LABS: AGAP 9; BUN 19 mg/dL (8-22); CALCIUM 8.9 mg/dL (8.8-10.2); CHLORIDE 101 mmol/L (98-107); COSMO 269; CREATININE 0.8 mg/dL (0.7-1.2); ESTIMATED GFR > 60; GLUCOSE 79 mg/dL (70-104); POTASSIUM 4.2 mmol/L (3.5-5.1); SODIUM 134 mmol/L (136-145); TCO2 24 mmol/L (25-35)
[2018-11-02 08:42] LABS: HEMATOCRIT 29.2 % (42.0-52.0); MCH 34.4 PG (27-31); MCHC 33.2 g/dL (33-37); MCV 103.5 FL (81-99); MPV 11.9 FL (7.4-10.4); RBC 2.82 XMIL (4.7-6.1); RDW 19.8 % (11.5-14.5); WBC 6.89 X1000 (4.8-10.8)
[2018-11-02] MEDS: XOPENEX NEB INH SCH ×4 (09:33→21:53)
[2018-11-02] MEDS ORDERED: ROBINUL ONE (11:03)
[2018-11-02] MEDS ORDERED: XYLOCAINE-MPF 2% ONE (11:03)
[2018-11-02] MEDS ORDERED: DIPRIVAN 1% ONE (11:03)
--- NOTE | 2018-11-02 12:20 | ENDOSCOPY OPERATIVE NOTE ---
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 PROCEDURE PERFORMED: EGD, diagnostic MEDICATIONS: Per Anesthesia TOPICAL ANESTHETIC: none CONSENT: The patient understands the risks and benefits of the procedure and understands that these r isks include, but are not limited to: sedation, allergic reaction, infection, perforation and/or bleeding. Alternative means of evaluation and treatment include, among others: physical exam, x-rays, and/or surgical intervention. The patient elects to proceed with this endoscopic procedure. HISORY AND PHYSICAL: 11/02/2018 function. Hand hygiene and appropriate measures for infection prevention was taken. After the risks, benefits and alternatives of the procedure were thoroughly explained, Informed consent was verified, confirmed and timeout was successfully executed by the treatment team. The patient was anesthetized with topical anesthesia and the endoscope was introduced through the mouth and advanced to the second portion of the duodenum. Retroflexion wa s performed in the stomach and revealed food. The gastroscope was then slowly withdrawn and removed. ESOPHAGUS: There were 3 columns of large (Grade III-IV) varices in the distal esophagus. These were not bleeding. There was evidence of scarring from prior banding. Banding was not attempted given retained food in s tomach and risk of aspiration. STOMACH: Mild portal hypertensive gastropathy was found in the gastric body. DUODENUM: The duodenum was normal. SPECIMENS REMOVED: No ADVERSE EVENTS: There were no complications. POSTOPERATIVE DIAGNOSIS: 1. There were 3 columns of large esophageal varices and varices in the distal esophagus 2. Portal hypertensive gastropathy was found in the gastric body. Large amount of retained gastric c ontents were found in the gastric fundus and antrum. 3. The duodenum was normal RECOMMENDATIONS: Resume cardiac diet REPEAT EXAM: Sonido Quintero MD eSigned: Sonido Quintero MD 11/02/2018 12:20 PM cc: PATIENT NAME: Zachary Bolden MR#: [id number]
[2018-11-02] MEDS: NICODERM PATCH TD SCH (12:42)
[2018-11-02] MEDS: ALDACTONE PO SCH (12:42)
[2018-11-02] MEDS: LASIX PO SCH (12:43)
[2018-11-02] MEDS: XIFAXAN PO SCH ×2 (12:43→21:08)
[2018-11-02] MEDS: LACTULOSE PO SCH ×2 (12:43→21:08)
--- NOTE | 2018-11-02 14:36 | PROGRESS NOTE ---
DATE: 11/02/2018 SUBJECTIVE: The patient feels better this morning and denies having any acute complaints. OBJECTIVE: Vital Signs: Temperature 98.1 degrees, pulse 86 per minute, respiratory rate 18 per minute, pulse oximetry 96% on room air. General: The patient is alert and awake. He does not appear to be in any acute distress. Cardiovascular: First and second heart sounds are audible without any murmurs or gallops. Respiratory system: No respiratory distress noted. Bilateral lung air entry is moderately decreased but there are no rales or rhonchi present on auscultation. Gastrointestinal system: The abdomen is slightly distended. It is soft and nontender on palpation. Normal bowel sounds are present. Musculoskeletal system: No deformities are present. DIAGNOSTIC DATA: CBC shows WBC count of 6.89, hemoglobin 9.7, hematocrit 29.2, and platelet count of 62,000. In comparison, his platelet count was 52 yesterday and hemoglobin was 8.9 and hematocrit 26.5. Basic metabolic panel done this morning is nondiagnostic. IMPRESSION: 1. Hepatitic encephalopathy that has now improved. 2. Esophageal varices along with ascites secondary to alcoholic liver disease. 3. Thrombocytopenia secondary to alcohol abuse. PLAN: The patient will continue with supportive care, including proton pump inhibitors and Xifaxan 50 mg orally twice daily. He will continue with diuretics for his ascites. Paracentesis has already been performed during this hospital admission. Furthermore, he will continue with Lasix 40 mg daily as well. His encephalopathy has improved but he will need some long-term physical therapy because of generalized weakness and deconditioning. Patient probably will need to have a transfer to rehab facility once ready to be discharged. cc: Dustin Alves MD [facility]
--- NOTE | 2018-11-02 21:12 | INFECTIOUS DISEASE PROGRESS NO ---
DATE: 11/02/2018 PRESENT ILLNESS: The patient has an infected left neck IV catheter site. MEDICATIONS: The patient daily is having his IV catheter site changed. It is cleaned with Betadine and then the dressing is put back on. PHYSICAL EXAMINATION: Vital Signs: Temperature is 98.2 degrees, pulse 86, respirations 18, blood pressure 115/60. General: This is an ill-appearing, middle-aged male. He is in no acute distress. Head/eyes/ears/nose/throat: He can hear my spoken words and see near objects. He does not have any white patches in his mouth. Neck: No pain with movement of the neck. The internal jugular catheter site on the left side is not erythematous and I did not see any purulence present either. Lungs: Clear to auscultation. Cardiovascular: Heart rate is regular. Abdomen: Protuberant with ascites. Neurologic: Patient is alert. He can move his extremities. There is no tremor. Extremities: Patient has leg edema but no erythema. Integument: Patient has multiple tattoos. LAB AND RADIOLOGY: CBC-WBC 6.89, hgb 9.7, platelets 62K. Creatinine-0.8. GFR- >60. No radiolog7 for today. ASSESSMENT AND PLAN: Patient has an infected catheter site. It appears to be getting better. My plan would be to continue with Betadine dressings to the neck. COMORBIDITIES: The patient has cirrhosis of the liver. He also is an alcoholic and he uses illicit drugs including marijuana. cc: Everett Walton MD MTDD
[2018-11-03] MEDS: ATROVENT NEB INH SCH ×5 (02:55→19:39)
[2018-11-03] MEDS: MORPHINE IV PRN ×5 (03:12→20:00)
[2018-11-03] MEDS: PROTONIX PO SCH ×2 (05:42→06:02)
[2018-11-03 06:25] LABS: INR 1.81; PROTIME 21.4 Seconds (11.0-16.0)
[2018-11-03 06:38] LABS: AGAP 12; BUN 18 mg/dL (8-22); CALCIUM 8.5 mg/dL (8.8-10.2); CHLORIDE 97 mmol/L (98-107); COSMO 268; CREATININE 0.7 mg/dL (0.7-1.2); ESTIMATED GFR > 60; GLUCOSE 94 mg/dL (70-104); POTASSIUM 4.6 mmol/L (3.5-5.1); SODIUM 133 mmol/L (136-145); TCO2 24 mmol/L (25-35)
[2018-11-03 06:47] LABS: BASO# 0.03 X1000 (0.0-0.2); BASO% 0.6 % (0.0-0.8); EOS# 0.13 X1000 (0.0-0.7); EOS% 2.5 % (0.0-10.0); HEMATOCRIT 28.2 % (42.0-52.0); HEMOGLOBIN 9.7 g/dL (14.0-18.0); IMM GRAN# 0.03 X1000 (0.0-0.04); IMM GRAN% 0.6 % (0.0-0.5); LYMPH# 0.72 X1000 (1.2-3.4); MCH 35.4 PG (27-31); MCHC 34.4 g/dL (33-37); MCV 102.9 FL (81-99); MONO# 0.68 X1000 (0.11-0.59); MONO% 13.2 % (1.7-9.3); MPV 12.9 FL (7.4-10.4); NEUT# 3.56 X1000 (1.4-6.5); NEUT% 69.1 % (42.2-75.2); PLT 60 X1000 (130-400); RBC 2.74 XMIL (4.7-6.1); RDW 19.4 % (11.5-14.5); WBC 5.15 X1000 (4.8-10.8)
[2018-11-03 06:52] LABS: ALB/GLOB RATIO 1.6; ALBUMIN 3.9 g/dL (3.5-5.0); DIRECT BILIRUBIN 0.5 mg/dL (0.00-0.20); TOTAL BILIRUBIN 1.9 mg/dL (0.20-1.00); TOTAL PROTEIN 6.3 g/dL (6.3-8.3)
[2018-11-03] MEDS: LACTULOSE PO SCH ×2 (08:33→20:00)
[2018-11-03] MEDS: NICODERM PATCH TD SCH (08:34)
[2018-11-03] MEDS: ALDACTONE PO SCH (08:34)
[2018-11-03] MEDS: LASIX PO SCH (08:34)
[2018-11-03] MEDS: XIFAXAN PO SCH ×2 (08:34→20:00)
[2018-11-03] MEDS: XOPENEX NEB INH SCH ×3 (10:08→19:39)
--- NOTE | 2018-11-03 20:13 | PROGRESS NOTE ---
DATE: 11/03/2018 SUBJECTIVE: The patient is resting comfortably in bed. No acute events noted overnight. He states that he walked with physical therapy yesterday. OBJECTIVE: Vital Signs: Temperature 97.8 degrees, blood pressure 100/73, heart rate 90, respirations 18, O2 saturation is 100% on room air. General: This is a chronically ill- appearing, elderly male, lying in bed in no acute distress. Heart: S1, S2 normal. Regular rate and rhythm. Lungs: Equal air entry bilaterally. No wheezing. No rales. No rhonchi. Abdomen: Positive bowel sounds. Soft, nontender, nondistended. Extremities: No edema. No cyanosis. No calf tenderness. Neurologic: The patient is alert and oriented x3. LABORATORY: White blood cell count 5.1, hemoglobin 9.7, hematocrit 28, platelets 60,000. INR 1.8. Sodium 133, potassium 4.6, chloride 97, CO2 of 24, BUN 18, creatinine 0.7, glucose 94. Total bilirubin 1.9, direct bilirubin 0.5, AST 81, ALT 33, alkaline phosphatase 112. ASSESSMENT AND PLAN: 1. Hepatic encephalopathy. Improved. Continue on lactulose and rifaximin. 2. Grade 3 esophageal varices. Aware. 3. Chronic thrombocytopenia. Aware. 4. Coagulopathy. We will continue to monitor closely. 5. Hepatitis C and hepatitis B. Aware. 6. Liver cirrhosis. Continue with supportive care. 7. Portal gastropathy. Aware. 8. Ascites, status post ultrasound-guided paracentesis. Stable. Continue on Lasix and Aldactone. 9. Anemia. Stable. 10. Disposition. Continue with physical therapy. cc: Ginette Albright MD
--- NOTE | 2018-11-03 22:23 | PROVIDER PROGRESS NOTE ---
Progress Note S: EGD showed retained gastric contents prohibiting us from from performing banding of known varices. There was no evidence of gastric outlet obstruction, ulcers or signs of bleeding. No acute overnight events. No N/V/F, CP, SOB, abdominal pain, or rectal bleeding O: Last Vital Signs Temp 98.0 F 11/03/18 19:40 Pulse 90 11/03/18 19:40 Resp 18 11/03/18 19:40 BP 96/68 11/03/18 19:40 Pulse Ox 98 11/03/18 19:40 Height 5 ft 7 in Weight 164 lb 8 oz GEN: NAD, awake, alert, oriented x3 HEENT: anicteric NECK: supple, no JVD PULM: CTAB, no wheezing CV: RRR no murmurs ABD: soft NT, BS present; + ascites EXT: no cce NEURO: no axsterixis LABS: 11/03/18 11/03/18 11/03/18 05:12 05:12 05:12 WBC 5.15 Hgb 9.7 L Plt Count 60 L INR 1.81 Sodium 133 L Potassium 4.6 Chloride 97 L Carbon Dioxide 24 L BUN 18 Creatinine 0.7 Total Bilirubin Direct Bilirubin AST ALT Alkaline Phosphatase Total Protein Albumin 11/03/18 05:12 WBC Hgb Plt Count INR Sodium Potassium Chloride Carbon Dioxide BUN Creatinine Total Bilirubin 1.90 H Direct Bilirubin 0.50 H AST 81 H ALT 33 Alkaline Phosphatase 112 Total Protein 6.3 Albumin 3.9 EGD 11/02 ESOPHAGUS: There were 3 columns of large (Grade III-IV) varices in the distal esophagus. These were not bleeding. There was evidence of scarring from prior banding. Banding was not attempted given retained food in stomach and risk of aspiration. STOMACH: Mild portal hypertensive gastropathy was found in the gastric body. DUODENUM: The duodenum was normal. A/P: Mr. Zachary Bolden is a 48 year old man with HCV and HBV cirrhosis c/b ascites and non-bleeding esophageal varices s/p EVL who was readmitted with hepatic encephalopathy. Found to have ALLAN, worsening anemia, thrombocytopenia. His course is complicated by hypernatremia; known resolved. Received empiric levaquin from 10/25 - 10/30. LVP on 10/30 with removal of 8L. His mental status is at baseline. # Decompensated HBV/HCV cirrhosis - PSE: resolved; on lactulose and rifaximin; titrate for 2-3 BMs daily; avoid BENZOS and narcotics, d/c rectal tube - Cirrhosis: trending LFTs - Ascites: he continues to lose weight; cont lasix 40mg daily and aldactone 100mg daily; low NA diet; d/c mora - EV: s/p EVL on 09/11; repeat EGD on 11/02 showed non-bleeding grade III-IV esophageal varices; banding was deferred given retained gastric contents # HCC screening: US neg 10/22, repeat in 6 months # OLT: not a candidate for transplant given lack of insurance; he does not drink alcohol # Hypernatremia: resolved # ALLAN: improved; avoid nephrotoxins; avoid IV diuresis # Anemia: no overt bleeding; trending H/H # Thrombocytopenia: stable, transfuse prn for plts <20K # PUD: resolved; continue PPI PO once daily # Severe protein calorie malnutrition: noted # Coagulopathy: improved; INR 1.8 Patient is okay to be discharged from GI perspective. He needs to establish health insurance. I have reiterated importance of compliance with him today.
[2018-11-04] MEDS: MORPHINE IV PRN ×3 (00:34→08:22)
[2018-11-04] MEDS: ATROVENT NEB INH SCH ×3 (03:07→09:40)
[2018-11-04] MEDS: XOPENEX NEB INH SCH ×2 (03:08→09:40)
[2018-11-04] MEDS: PROTONIX PO SCH ×2 (05:42→06:13)
[2018-11-04 07:45] VITALS: BP 105/78
[2018-11-04] MEDS: ALDACTONE PO SCH (08:22)
[2018-11-04] MEDS: LACTULOSE PO SCH (08:23)
[2018-11-04] MEDS: LASIX PO SCH (08:23)
[2018-11-04] MEDS: XIFAXAN PO SCH (08:23)
[2018-11-04] MEDS: NICODERM PATCH TD SCH (09:28)
--- NOTE | 2018-11-04 14:56 | PROVIDER PROGRESS NOTE ---
Progress Note S: No acute overnight events. No N/V/F, CP, SOB, abdominal pain. +BMs. good UOP. Ambulatory O: Last Vital Signs Temp 98.2 F 11/04/18 07:44 Pulse 94 H 11/04/18 09:41 Resp 16 11/04/18 09:41 BP 105/78 11/04/18 07:44 Pulse Ox 100 11/04/18 07:44 Height 5 ft 7 in Weight 155 lb 8 oz GEN: NAD, awake, alert, oriented x3 HEENT: anicteric NECK: supple, no JVD PULM: CTAB, no wheezing CV: RRR no murmurs ABD: soft NT, BS present; + ascites EXT: no cce NEURO: no axsterixis LABS: no AM labs A/P: Mr. Zachary Bolden is a 48 year old man with HCV and HBV cirrhosis c/b ascites and non-bleeding esophageal varices s/p EVL who was readmitted with hepatic encephalopathy. Found to have ALLAN, worsening anemia, and thrombocytopenia. His course is complicated by hypernatremia; known resolved. Received empiric levaquin from 10/25 - 10/30. LVP on 10/30 with removal of 8L. His mental status is at baseline. # Decompensated HBV/HCV cirrhosis - PSE: resolved; on lactulose and rifaximin; titrate for 2-3 BMs daily - Cirrhosis: trending LFTs - Ascites: he continues to lose weight; cont lasix 40mg daily and aldactone 100mg daily; low Na diet - EV: s/p EVL on 09/11; repeat EGD on 11/02 showed non-bleeding grade III-IV esophageal varices that were not banded # HCC screening: US neg 10/22, repeat in 6 months # OLT: not a candidate for transplant given lack of insurance; he does not drink alcohol # Hypernatremia: resolved # ALLAN: resolved # Anemia: no overt bleeding # Thrombocytopenia: improved # PUD: resolved; continue PPI PO once daily # Severe protein calorie malnutrition: noted # Coagulopathy: improved; INR 1.8 Patient discharged today. He was instructed to follow-up with Dr. Quintero in clinic in 1 week
--- NOTE | 2018-11-13 12:51 | DISCHARGE SUMMARY ---
ADMISSION DATE: 10/21/2018 DISCHARGE DATE: 11/04/2018 FINAL DISCHARGE DIAGNOSES: 1. Hepatic encephalopathy. 2. Grade 3 esophageal varices. 3. Chronic thrombocytopenia. 4. Coagulopathy. 5. Hepatitis C. 6. Hepatitis B. 7. Liver cirrhosis. 8. Portal gastropathy. 9. Ascites, status post ultrasound-guided paracentesis. 10. Anemia. CONSULTATIONS: 1. GI consultation with Dr. Howard. 2. Nephrology consultation with Dr. Noble. 3. General Surgery consultation with Dr. Mosqueda. PROCEDURES: 1. Ultrasound-guided paracentesis performed on 10/30/2018, at which time 8 L of ascitic fluid was removed. 2. EGD performed on 11/02/2018, which revealed large esophageal varices in the distal esophagus as well as portal hypertensive gastropathy. HOSPITAL COURSE: Mr. Bolden is a 48-year-old male with a history of liver cirrhosis, hepatitis B, hepatitis C, hepatic encephalopathy, and anemia, who was admitted with altered mental status. On admission, the patient was noted to be in hepatic encephalopathy. The patient was admitted to the Hospitalist Service. GI was consulted. Also, the patient was noted to be in acute renal failure, so Nephrology was consulted for further assistance. The patient was noted to have massive ascites, and so an ultrasound-guided paracentesis was done, at which time 8 L of peritoneal fluid was removed. The patient had a prolonged hospitalization, and slowly over the course of the hospitalization, the patient stabilized. The patient ultimately had an EGD done that revealed grade 3 esophageal varices, but no evidence of bleeding. The patient continued to improve clinically, and was ultimately cleared for discharge. DISCHARGE MEDICATIONS: 1. Lasix 40 mg p.o. daily. 2. Lactulose 30 mL oral twice a day. 3. NicoDerm patch 21 mg transdermal daily. 4. Protonix 40 mg p.o. twice a day. 5. Rifaximin 550 mg oral twice a day. 6. Aldactone 100 mg p.o. daily. DISCHARGE DIET: Low-sodium diet. ACTIVITY: As tolerated. FOLLOWUP INSTRUCTIONS: The patient will need to follow up with Dr. Quintero in 1 to 2 weeks. cc: Ginette Albright MD
== END 2018-11-04 11:43 | disposition home or self-care (01) | DRG 432 ==
LOC: SUPCPDRO → ED 04:42 → ICU 10:55 → SUATTDRO 10:55 → 2N 10-30 21:54
PROVIDERS: ATTEND Internal Medicine